=== PATIENT | male | born 1960 | race Caucasian/White ===

== ENCOUNTER 2020-12-12 15:40 | Inpatient (IN) | payer MEDICAID, OTHER ==
[~2020-12-12] VITALS: Ht 177.8 cm; Wt 89.4 kg
[2020-12-12] MEDS ORDERED: ALBUTEROL SULFATE 2.5 MG/0.5 ML INH NEB SOLN INH ONE (15:45)
[2020-12-12] MEDS ORDERED: methylPREDNISolone 125MG 2ML VIAL IV ONE (15:45)
[2020-12-12] MEDS ORDERED: IPRATROPIUM 0.5MG/ALBUTEROL 2.5MG INH SOL UD 3ML (DUONEB) NEB ONE (15:45)
[2020-12-12] MEDS ORDERED: PIPERACILLIN/TAZOBACTAM SOD 4.5 GM in D5W MINI-BAG PLUS 50 ML IV ONE (16:00)
[2020-12-12] MEDS ORDERED: NS 1,000 ML IV ONE (16:05)
--- NOTE | 2020-12-12 16:08 | REP ---
INDICATION: DYSPNEA/COUGH. COMPARISON: None. TECHNIQUE: Single portable AP view of the chest was performed. FINDINGS: There is diffuse left lung consolidation. No infiltrate is seen in the right lung. The heart size is not well evaluated. The right mediastinal and hilar contours are unremarkable. IMPRESSION: Diffuse left lung consolidation. <Electronically signed by Weston Kaur > 12/12/20 0896
[2020-12-12 16:11] LABS: HEMATOCRIT 48.4 % (42.0-52.0); HEMOGLOBIN 16.1 g/dl (13.5-17.5); MEAN CORPUSCULAR HEMOGLOBIN 30.2 pg (27.0-33.0); MEAN CORPUSCULAR HGB CONC 33.3 g/dl (32.0-36.5); MEAN CORPUSCULAR VOLUME 90.8 fl (80.0-96.0); PLATELET COUNT, AUTOMATED 359 10^3/uL (150-450); RED BLOOD COUNT 5.33 10^6/uL (4.30-6.10)
[2020-12-12 16:12] LABS: ABG BASE EXCESS -7.5 (-2.0-2.0); ABG HCO3 23.7 MEQ/L (22.0-26.0); ABG O2 SATURATION 94.9 % (95.0-99.0); ABG PARTIAL PRESSURE O2 91.1 mmHg (75.0-100.0); ABG STANDARD HCO3 18.5 MEQ/L (22.0-26.0); ABG TOTAL CO2 25.9 MEQ/L (23.0-31.0)
[2020-12-12 16:13] LABS: ABG PARTIAL PRESSURE CO2 73.1 mmHg (35.0-45.0); ABG pH (ARTERIAL) 7.128 UNITS (7.350-7.450)
[2020-12-12 16:13] LABS: WHITE BLOOD COUNT 35.3 10^3/uL (4.0-10.0)
[2020-12-12] MEDS ORDERED: NS IV ONE (16:30)
[2020-12-12 16:38] LABS: ACETAMINOPHEN LEVEL < 2.0 UG/ML (10.0-30.0); ALBUMIN 2.3 GM/DL (3.2-5.2); ALT/SGPT 44 U/L (12-78); BILIRUBIN,DIRECT 0.6 MG/DL (0.0-0.2); BILIRUBIN,TOTAL 0.9 MG/DL (0.2-1.0); BLOOD UREA NITROGEN 80 MG/DL (7-18); CALCIUM LEVEL 8.2 MG/DL (8.8-10.2); CARBON DIOXIDE LEVEL 25 MEQ/L (21-32); CHLORIDE LEVEL 103 MEQ/L (98-107); CK-MB VALUE MASS 2.8 NG/ML (<3.6); CPK CREATINE PHOSPHOKINASE 83 U/L (39-308); CREATININE FOR GFR 2.21 MG/DL (0.70-1.30); ETHYL ALCOHOL (ETHANOL) < 0.003 % (0.000-0.010); GLOMERULAR FILTRATION RATE 32.5 (>49); GLUCOSE, FASTING 137 MG/DL (70-100); MB/CK RELATIVE INDEX 3.37 (< OR =4); NT-PRO BNP 2098 PG/ML (<125); POTASSIUM SERUM 4.2 MEQ/L (3.5-5.1); SALICYLATE LEVEL 2.7 MG/DL (5.0-30.0); SODIUM LEVEL 140 MEQ/L (136-145); THYROID STIMULATING HORMONE 0.501 uIU/ML (0.358-3.740); THYROXINE (T4) 8.5 UG/DL (4.5-12.0); TOTAL PROTEIN 6.7 GM/DL (6.4-8.2); TROPONIN I < 0.02 NG/ML (< 0.10)
[2020-12-12 17:23] LABS: AMPHETAMINES LEVEL URINE NEGATIVE (NEGATIVE); BARBITURATES URINE NEGATIVE (NEGATIVE); BENZODIAZEPINES URINE NEGATIVE (NEGATIVE); CANNABINOIDS URINE NEGATIVE (NEGATIVE); COCAINE METABOLITE URINE NEGATIVE (NEGATIVE); METHADONE URINE NEGATIVE (NEGATIVE); OPIATES URINE NEGATIVE (NEGATIVE); PHENCYCLIDINE URINE NEGATIVE (NEGATIVE)
[2020-12-12 17:25] LABS: AMYLASE 15 U/L (25-115)
[2020-12-12 17:27] LABS: ANISOCYTOSIS 1+; LYMPHOCYTES 7 % (16-44); METAMYELOCYTES 4 % (0-0); MONOCYTES 3 % (0-5); MYELOCYTES 1 % (0-0); NEUTROPHILS 62 % (28-66); OVALOCYTES 1+; PLASMA CELL 1 % (0-0); PLATELET ESTIMATE NORMAL (NORMAL); POIKILOCYTOSIS 1+
[2020-12-12 17:28] LABS: PLATELET CLUMPS SMALL AMT; POLYCHROMASIA 1+
[2020-12-12] MEDS ORDERED: HOME MED LIST COMPLETE! XX SCH (17:30)
[2020-12-12] MEDS ORDERED: VANCOMYCIN HCL 1,000 MG, VIAL MATE ADAPTER 1 EACH in NS 250 ML IV ONE ×2 (18:00→19:00)
--- NOTE | 2020-12-12 18:31 | HPEPDOC ---
[facility] Medical History & Physical Date of Admission Dec 12, 2020 Date of Service: Dec 12, 2020 History and Physical CHIEF COMPLAINT: " Congestion" HISTORY OF PRESENT ILLNESS: 60-year-old male with past medical history of schizophrenia (obtained from the chart) presented to the emergency department after he was dropped off by his cousin due to respiratory distress. Patient is a poor historian and was unable to provide complete details of his current clinical status. He did report approximately a week ago he began to have chills, pain in his joints, myalgia, rhinorrhea, and congestion. He did not seek any medical attention at that time and thought it would pass. In the emergency department patient was in respiratory distress. ABG showed respiratory acidosis. Significant leukocytosis on blood work. He was placed on BiPAP and received appropriate fluid resuscitation (30 cc/kg) at which time medicine team was consulted for ICU admission. PAST MEDICAL HISTORY: 1. Schizophrenia PAST SURGICAL HISTORY: 1. Right knee surgery SOCIAL HISTORY: Marital status: Single Resides in: Lives with his mother at home Tobacco use: Unable to quantify on the cigarettes he smokes at this time ETOH: Denied Illicit drug use: Denies FAMILY HISTORY: Denies family history ALLERGIES: Please see below. REVIEW OF SYSTEMS: 10 point review of system was negative except for what is noted in the HPI HOME MEDICATIONS: Please see below. PHYSICAL EXAMINATION: General: Lying in bed, mild distress Head/Neck/Throat: Trachea midline, dry mucous membrane Eyes: Sclera anicteric, no erythema or discharge appreciated bilateral Thorax: On BiPAP, diminished breath sounds over the right lung field Cardiovascular: Normal rate, regular rhythm, normal S1, S2; no S3, S4, rubs/gallops/murmurs Abdomen: Bowel sounds present, soft, diffuse tenderness with palpation Genitourinary: No CVA tenderness, no Archuleta in place Musculoskeletal: Moving all extremities, pedal edema Skin: Warm, dry Neurologic: Alert, awake, oriented to self, place, and date he is able to follow commands. However, he is poor historian. LABORATORY DATA: See below. IMAGING: Chest x-ray shows left lung consolidation. MICROBIOLOGY: Please see below. A/P #Acute respiratory failure with hypoxia and hypercapnia -Secondary to viral pneumonia. Continue with BiPAP support. Case was discussed with oxidation engineer no need for immediate bronc in regards to the chest x-ray findings. We will appreciate assistance for BiPAP management. -Pulmonary toileting with nebulizer treatments and normal saline nebulizers. #Sepsis -Round pneumonia possibly superimposed bacterial pneumonia. Received 30 cc KG bolus. Will resume broad-spectrum antibiotics until cultures are back as well as procalcitonin. Repeat lactic acid pending #Abdominal pain -This was appreciated on physical examination although the patient did not complain of it. Will obtain CT scan of the abdomen to rule out underlying pathology #Schizophrenia -Patient reports he is not on any medications at this time. #DVT prophylax -Heparin subcu Critical time spent over 75 minutes on patient. Attempt to call family but no answer. Vital Signs Vital Signs Date Time Temp Pulse Resp B/P (MAP) Pulse Ox O2 Delivery O2 Flow Rate FiO2 12/12/20 17:16 109 97 12/12/20 17:06 97.8 12/12/20 16:46 107/59 (75) 12/12/20 16:40 22 12/12/20 16:10 100 Laboratory Data Labs 24H Laboratory Tests 2 12/12/20 15:49: Neutrophils (%) (Auto) , Nucleated Red Blood Cells % (auto) 0.1H, Neutrophils 62, Band Neutrophils 22H, Lymphocytes (Manual) 7L, Monocytes (Manual) 3, Metamye locytes 4H, Myelocytes 1H, Plasma Cells 1H, Polychromasia 1+, Poikilocytosis 1+, Anisocytosis 1+, Ovalocytes 1+, Platelet Estimate NORMAL, Clumped Platelets SMALL AMT, Urine Color BRICE, Urine Appearance CLOUDYH, Urine pH 5.0, Urine Specific [place] 1.023, Urine Protein 1+H, Urine Glucose (UA) NEGATIVE, Urine Ketones NEGATIVE, Urine Blood NEGATIVE, Urine Nitrite NEGATIVE, Urine Bilirubin NEGATIVE, Urine Urobilinogen 4.0H, Urine Leukocyte Esterase NEGATIVE, Urine WBC (Auto) 5H, Urine RBC (Auto) 3, Urine Hyaline Casts (Auto) 1, Urine Bacteria (Auto) NEGATIVE, Urine Squamous Epithelial Cells 1, Urine Amorphous Sediment SMALLH, Urine Granular Casts (Auto) 17, Urine Mucus (Auto) SMALL, Urine Sperm (Auto) , Anion Gap 12, Glomerular Filtration Rate 32.5L, Lactic Acid Level 3.2*H, Calcium Level 8.2L, Total Bilirubin 0.9, Direct Bilirubin 0.6H, Aspartate Amino Transf (AST/SGOT) 34, Alanine Aminotransferase (ALT/SGPT) 44, Alkaline Phosphatase 190H, Ammonia < 10, Total Creatine Kinase 83, Creatine Kinase MB 2.8, Creatine Kinase MB Relative Index 3.37, Troponin I < 0.02, C-Reactive Protein, Quantitative 36.70H, DP-Lej-Y-Type Natriuretic Peptide 2098H, Total Protein 6.7, Albumin 2.3L, Albumin/Globulin Ratio 0.5, Amylase Level 15L, Thyroid Stimulating Hormone (TSH) 0.501, Thyroxine (T4) 8.5, Salicylates Level 2.7L, Urine Opiates Screen NEGATIVE, Urine Methadone Screen NEGATIVE, Acetaminophen Level < 2.0L, Urine Barbiturates Screen NEGATIVE, Urine Phencyclidine Screen NEGATIVE, Urine Amphetamines Screen NEGATIVE, Urine Benzodiazepines Screen NEGATIVE, Urine Cocaine Metabolite Screen NEGATIVE, Urine Cannabinoids Screen NEGATIVE, Ethyl Alcohol Level < 0.003 12/12/20 16:02: Blood Gas Bicarbonate Standard 18.5L, Arterial Blood pH 7.128*L, Arterial Blood Partial Pressure CO2 73.1*H, Arterial Blood Partial Pressure O2 91.1, Arterial Blood Total CO2 25.9, Arterial Blood HCO3 23.7, Arterial Blood Base Excess - 7.5L, Arterial Blood Oxygen Saturation 94.9L 12/12/20 16:06: Bedside Glucose (Misc Panel) 150H 12/12/20 16:36: POC pH (Misc Panel) 7.283L, POC Base Excess (Misc Panel) -1.0, POC Saturated Percent O2 (Misc) 99H, POC pO2 (Misc Panel) 155.0H, POC pCO2 (Misc Panel) 53.9H, POC HCO3 (Misc Panel) 25.5, POC Total CO2 (Misc Panel) 27.0 CBC/BMP Laboratory Tests 12/12/20 15:49 Microbiology Microbiology 12/12/20 Blood Culture, Received Pending 12/12/20 Urine Culture, Received Pending 12/12/20 Respiratory Virus Panel (PCR) (TAE) - Final, Complete Human Rhinovirus/Enterovirus 12/12/20 Blood Culture, Received Pending Home Medications No Active Prescriptions or Reported Meds Allergies Coded Allergies: strawberry (Verified Allergy, Unknown, 12/12/20) tuberculin, purified protein deriva (Verified Allergy, Unknown, 12/12/20) A-FIB/CHADSVASC A-FIB History Current/History of A-Fib/PAF?: No MARÍA STEARNS M.D. Dec 12, 2020 17:33
[2020-12-12 18:42] LABS: INR 1.29; PROTHROMBIN TIME 16.5 SECONDS (12.7-14.5)
[2020-12-12 18:43] LABS: PARTIAL THROMBOPLASTIN TIME 28.3 SECONDS (25.9-37.0)
--- NOTE | 2020-12-12 19:19 | ECGEPIP ---
[facility] - ED Test Date: 2020-12-12 Pat Name: RL SCOTT Department: Room: - Gender: Male Programming Specialist: ASHLEIGH : [id number] Requested By: Lorie Sumner Order Number: [id number] Reading MD: Lorie Sumner Measurements Intervals [place] Rate: 132 P: 72 MO: 146 QRS: 82 QRSD: 100 T: 88 QT: 284 QTc: 420 Interpretive Statements Sinus tachycardia Incomplete right bundle branch block Cannot rule out Anterior infarct , age undetermined Nonspecific ST T wave changes Baseline wandering may affect reading Baseline artifact may affect reading No prior ECG for comparison Electronically Signed on 12-12-2020 19:19:00 EDT by Lorie Sumner
[2020-12-12 20:00] VITALS: BP 135/60
[2020-12-12] MEDS: IPRATROPIUM 0.5MG/ALBUTEROL 2.5MG INH SOL UD 3ML (DUONEB) NEB SCH (20:00)
[2020-12-12] MEDS: SODIUM CHLORIDE 0.9% 3ML NEB SOLUTION FOR INHALATION INH SCH (20:00)
[2020-12-12] MEDS: NS 1,000 ML IV SCH (20:07)
[2020-12-12] MEDS: CHLORHEXIDINE GLUCONATE 0.12 % 15ML UDC (PERIDEX ORAL RINSE) MT SCH (20:08)
[2020-12-12] MEDS: PIPERACILLIN/TAZOBACTAM SOD 3.375 GM in D5W MINI-BAG PLUS 50 ML IV SCH (21:08)
[2020-12-12] MEDS: HEPARIN SOD (PORCINE) 5000UNITS/ML 1ML VIAL/SYRINGE SQ SCH (21:08)
[2020-12-12 22:00] VITALS: BP 121/58
[2020-12-13] VITALS (17 sets, daily range): BP systolic 106–157; BP diastolic 57–86
[2020-12-13] MEDS: SODIUM CHLORIDE 0.9% 3ML NEB SOLUTION FOR INHALATION INH SCH ×4 (01:29→20:00)
[2020-12-13] MEDS: IPRATROPIUM 0.5MG/ALBUTEROL 2.5MG INH SOL UD 3ML (DUONEB) NEB SCH ×5 (01:29→20:00)
[2020-12-13] MEDS: NS 1,000 ML IV SCH (03:10)
[2020-12-13] MEDS: PIPERACILLIN/TAZOBACTAM SOD 3.375 GM in D5W MINI-BAG PLUS 50 ML IV SCH ×4 (03:11→21:08)
[2020-12-13] MEDS: HEPARIN SOD (PORCINE) 5000UNITS/ML 1ML VIAL/SYRINGE SQ SCH ×3 (05:16→21:09)
[2020-12-13 05:57] LABS: ABG HCO3 21.5 MEQ/L (22.0-26.0); ABG O2 SATURATION 96.9 % (95.0-99.0); ABG PARTIAL PRESSURE CO2 36.6 mmHg (35.0-45.0); ABG PARTIAL PRESSURE O2 88.7 mmHg (75.0-100.0); ABG TOTAL CO2 22.6 MEQ/L (23.0-31.0); ABG pH (ARTERIAL) 7.386 UNITS (7.350-7.450)
--- NOTE | 2020-12-13 06:20 | IPNPDOC ---
Subjective Date Seen The patient was seen on 12/13/20. Subjective Chief Complaint/HPI Patient was seen and examined at bedside this morning. He was on BiPAP and reported feeling significantly better from the time he arrived to the hospital. He denied chest pain, nausea, vomiting, problems with urination or bowel movements. He continues to endorse having abdominal pain which he attributes to him having a difficult time breathing prior to arrival to the hospital. Overnight, patient was able to come off BiPAP but had increased work of breathing therefore was placed back on it. Other systems 10 point review of system is negative except for what is noted in the HPI. Objective Physical Examination Other physical findings General: Lying in bed, mild distress Head/Neck/Throat: Trachea midline, dry mucous membrane Eyes: Sclera anicteric, no erythema or discharge appreciated bilateral Thorax: On BiPAP, coarse breath sounds bilaterally Cardiovascular: Normal rate, regular rhythm, normal S1, S2; no S3, S4, rubs/gallops/murmurs Abdomen: Bowel sounds present, soft, diffuse tenderness with palpation Genitourinary: No CVA tenderness, no Archuleta in place Musculoskeletal: Moving all extremities, pedal edema Skin: Warm, dry Neurologic: Alert, awake, oriented to self, place, and date he is able to follow commands. Assessment /Plan Plan/VTE VTE Prophylaxis Ordered?: Yes Plan #Acute respiratory failure with hypoxia and hypercapnia -Secondary to viral pneumonia and possibly superimposed bacterial pneumonia (elevated procalcitonin). Continue with BiPAP support. Case was discussed with dog races manager, appreciate assistance for BiPAP management. -Pulmonary toileting with nebulizer treatments and normal saline nebulizers. Solu-Medrol. We will add chest PT. #Sepsis -Viral pneumonia possibly superimposed bacterial pneumonia. Continue with broad-spectrum antibiotics until cultures are back. Will check MRSA screen, if negative can discontinue vancomycin. Azithromycin added for atypical coverage. -Mycoplasma, strep pneumonia and Legionella antigen screen pending. Sputum culture and sensitivity pending. #Abdominal pain -This was appreciated on physical examination although the patient did not complain of it. CT scan of the abdomen is pending #Schizophrenia -Patient reports he is not on any medications at this time. #DVT prophylax -Heparin subcu Critical time spent over 75 minutes on patient. VS, I&O, 24H, Fishbone Vital Signs/I&O Vital Signs Date Time Temp Pulse Resp B/P (MAP) Pulse Ox O2 Delivery O2 Flow Rate FiO2 12/13/20 06:00 75 24 126/61 (82) 93 Nasal Cannula 4.0 12/13/20 04:00 40 12/13/20 04:00 98.1 I&O- Last 24 Hours up to 6 AM 12/13/20 06:00 Intake Total 4480 ml Output Total 740 ml Balance 3740 ml Laboratory Data 24H LABS Laboratory Tests 2 12/12/20 15:49: Neutrophils (%) (Auto) , Nucleated Red Blood Cells % (auto) 0.1H, Neutrophils 62, Band Neutrophils 22H, Lymphocytes (Manual) 7L, Monocytes (Manual) 3, Metamyelocytes 4H, Myelocytes 1H, Plasma Cells 1H, Polychromasia 1+, Poiki locytosis 1+, Anisocytosis 1+, Ovalocytes 1+, Platelet Estimate NORMAL, Clumped Platelets SMALL AMT, Urine Color BRICE, Urine Appearance CLOUDYH, Urine pH 5.0, Urine Specific [place] 1.023, Urine Protein 1+H, Urine Glucose (UA) NEGATIVE, Urine Ketones NEGATIVE, Urine Blood NEGATIVE, Urine Nitrite NEGATIVE, Urine Bilirubin NEGATIVE, Urine Urobilinogen 4.0H, Urine Leukocyte Esterase NEGATIVE, Urine WBC (Auto) 5H, Urine RBC (Auto) 3, Urine Hyaline Casts (Auto) 1, Urine Bacteria (Auto) NEGATIVE, Urine Squamous Epithelial Cells 1, Urine Amorphous Sediment SMALLH, Urine Granular Casts (Auto) 17, Urine Mucus (Auto) SMALL, Urine Sperm (Auto) , Anion Gap 12, Glomerular Filtration Rate 32.5L, Lactic Acid Level 3.2*H, Calcium Level 8.2L, Total Bilirubin 0.9, Direct Bilirubin 0.6H, Aspartate Amino Transf (AST/SGOT) 34, Alanine Aminotransferase (ALT/SGPT) 44, Alkaline Phosphatase 190H, Ammonia < 10, Total Creatine Kinase 83, Creatine Kinase MB 2.8, Creatine Kinase MB Relative Index 3.37, Troponin I < 0.02, C-Reactive Protein, Quantitative 36.70H, AE-Piw-T-Type Natriuretic Peptide 2098H, Total Pro tein 6.7, Albumin 2.3L, Albumin/Globulin Ratio 0.5, Amylase Level 15L, Procalcitonin 11.28, Thyroid Stimulating Hormone (TSH) 0.501, Thyroxine (T4) 8.5, Salicylates Level 2.7L, Urine Opiates Screen NEGATIVE, Urine Methadone Screen NEGATIVE, Acetaminophen Level < 2.0L, Urine Barbiturates Screen NEGATIVE, Urine Phencyclidine Screen NEGATIVE, Urine Amphetamines Screen NEGATIVE, Urine Benzodiazepines Screen NEGATIVE, Urine Cocaine Metabolite Screen NEGATIVE, Urine Cannabinoids Screen NEGATIVE, Ethyl Alcohol Level < 0.003 12/12/20 16:02: Blood Gas Bicarbonate Standard 18.5L, Arterial Blood pH 7.128*L, Arterial Blood Partial Pressure CO2 73.1*H, Arterial Blood Partial Pressure O2 91.1, Arterial Blood Total CO2 25.9, Arterial Blood HCO3 23.7, Arterial Blood Base Excess - 7.5L, Arterial Blood Oxygen Saturation 94.9L 12/12/20 16:06: Bedside Glucose (Misc Panel) 150H 12/12/20 16:36: POC pH (Misc Panel) 7.283L, POC Base Excess (Misc Panel) -1.0, POC Saturated Percent O2 (Misc) 99H, POC pO2 (Misc Panel) 155.0H, POC pCO2 (Misc Panel) 53.9H, POC HCO3 (Misc Panel) 25.5, POC Total CO2 (Misc Panel) 27.0 12/12/20 18:04: Prothrombin Time 16.5H, Prothromb Time International Ratio 1.29, Activated Partial Thromboplast Time 28.3 12/12/20 20:08: Lactic Acid Followup at 4 Hours 2.2*H 12/12/20 20:15: Methicillin-Resist S.aureus DNA PCR NOT DETECTED 12/13/20 05:51: Blood Gas Bicarbonate Standard 22.0, Arterial Blood pH 7.386, Arterial Blood Partial Pressure CO2 36.6, Arterial Blood Partial Pressure O2 88.7, Arterial Blood Total CO2 22.6L, Arterial Blood HCO3 21.5L, Arterial Blood Base Excess - 3.0L, Arterial Blood Oxygen Saturation 96.9 CBC/BMP Laboratory Tests 12/12/20 15:49 Microbiology Microbiology 12/12/20 Blood Culture, Received Pending 12/12/20 Urine Culture, Received Pending 12/12/20 Respiratory Virus Panel (PCR) (TAE) - Final, Complete Human Rhinovirus/Enterovirus 12/12/20 Blood Culture, Received Pending MARÍA STEARNS M.D. Dec 13, 2020 06:19
--- NOTE | 2020-12-13 08:11 | REP ---
INDICATION: f/u on abnormal cxr. COMPARISON: Portable chest dated 12/12/2020. TECHNIQUE: Portable AP chest with the patient sitting. FINDINGS: There is consolidation throughout the entire left lung, as previously. Right lung remains clear. Left cardiac margin is obscured and cardiac size cannot be determined. IMPRESSION: Complete consolidation of the entire left lung. No interval change. <Electronically signed by Weston Church > 12/13/20 0807
[2020-12-13] MEDS: CHLORHEXIDINE GLUCONATE 0.12 % 15ML UDC (PERIDEX ORAL RINSE) MT SCH ×2 (09:08→21:08)
[2020-12-13 09:18] LABS: BASO % 0.1 % (0.0-1.0); EOS % 0.1 % (0.0-3.0); HEMATOCRIT 38.9 % (42.0-52.0); LYMPH # 1.9 10^3/uL (1.5-5.0); MEAN CORPUSCULAR VOLUME 88.6 fl (80.0-96.0); MONO # 0.9 10^3/uL (0.0-0.8); NEUTROPHILS # 26.7 10^3/uL (1.5-8.5); PLATELET COUNT, AUTOMATED 293 10^3/uL (150-450); RED BLOOD COUNT 4.39 10^6/uL (4.30-6.10)
[2020-12-13 09:22] LABS: HEMOGLOBIN 13.6 g/dl (13.5-17.5)
[2020-12-13 09:26] LABS: ALBUMIN 1.7 GM/DL (3.2-5.2); BILIRUBIN,TOTAL 0.8 MG/DL (0.2-1.0); CALCIUM LEVEL 7.8 MG/DL (8.8-10.2); CREATININE FOR GFR 1.61 MG/DL (0.70-1.30); GLOMERULAR FILTRATION RATE 46.8 (>49); MAGNESIUM LEVEL 2.7 MG/DL (1.8-2.4); PHOSPHORUS LEVEL 3.8 MG/DL (2.5-4.9); POTASSIUM SERUM 3.7 MEQ/L (3.5-5.1); TOTAL PROTEIN 6.2 GM/DL (6.4-8.2)
--- NOTE | 2020-12-13 10:30 | REP ---
INDICATION: Pneumonia COMPARISON: None. TECHNIQUE: Standard helical technique without intravenous contrast FINDINGS: There is mediastinal and left hilar adenopathy somewhat difficult to evaluate without intravenous contrast. There is a small to moderate left pleural effusion. The imaged upper abdomen is within normal limits. The imaged osseous structures show respiratory motion artifact obscuring the sternum and multiple ribs given the impression of cortical overlap. Evaluation of the lung adams shows dense consolidation of the left upper, middle, and lower lobes with air bronchograms. Patchy airspace opacities are seen in the aerated portions of those lobes. Respiratory motion artifact obscures the detail. Slightly increased interstitial markings and possible early airspace opacities in the lingula obscured by motion artifact. IMPRESSION: 1. Dense lung field opacification as described above. Pneumonia is suspected. Malignancy cannot be ruled out. 2. There is adenopathy as described above. 3. Left pleural effusion. 4. Other findings and exam limitations as described above. <Electronically signed by Farooq Boyle > 12/13/20 1020
[2020-12-13] MEDS: AZITHROMYCIN INJ 500 MG, VIAL MATE ADAPTER 1 EACH in NS 250 ML IV SCH (11:57)
[2020-12-13] MEDS: methylPREDNISolone 125MG 2ML VIAL IV SCH ×3 (11:58→23:38)
--- NOTE | 2020-12-13 15:49 | REP ---
INDICATION: diffuse abdominal pain. COMPARISON: None. TECHNIQUE: Noncontrast enhanced standard helical technique FINDINGS: Evaluation of the lung bases shows a left pleural effusion and left basilar opacities with air bronchograms. Limited evaluation of the solid intra-organs and gallbladder shows no gross abnormalities. Limited evaluation of the pancreas, adrenal glands, and kidneys shows no gross abnormalities. Limited evaluation of the bowel loops and the mesenteries shows no gross abnormalities. There is no evidence of free fluid or free air. Limited evaluation of the abdominal aorta and para aortic regions shows no abnormalities. There is no evidence of a mass or adenopathy. A Archuleta balloon catheter decompresses the urinary bladder. Bone window technique throughout the examination shows the osseous structures to be within normal limits for the patient's age. IMPRESSION: 1. Lung base findings as described above. 2. Limited examination showing no evidence of acute intra-abdominal or intrapelvic disease with findings as described above. <Electronically signed by Farooq Boyle > 12/13/20 [id number]
[2020-12-13] MEDS ORDERED: ONDANSETRON 4MG/2ML VIAL IV ONE (18:05)
[2020-12-13] MEDS ORDERED: MORPHINE 2 MG/ML 1ML VIAL (J2270) IV ONE (18:20)
[2020-12-13] MEDS ORDERED: VANCOMYCIN HCL 1,000 MG, VIAL MATE ADAPTER 1 EACH in NS 250 ML IV SCH (20:00)
[2020-12-14] VITALS (18 sets, daily range): BP systolic 103–159; BP diastolic 59–92
[2020-12-14] MEDS: SODIUM CHLORIDE 0.9% 3ML NEB SOLUTION FOR INHALATION INH SCH ×3 (01:12→14:00)
[2020-12-14] MEDS ORDERED: guaiFENesin/CODEINE SYRUP 5 ML UDC PO ONE (01:30)
[2020-12-14] MEDS ORDERED: METOPROLOL 5 MG/5 ML VIAL As Ordered ONE (02:56)
--- NOTE | 2020-12-14 03:00 | IPNPDOC ---
Date Seen The patient was seen on 12/14/20. Progress Note SUBJECTIVE: called by RN at approximately 0245, for concern of afib on tele. Confirmed by 12 lead ekg, AFIB with RVR, new onset, no prior hx. Patient is alert and oriented, in good spirits. On bipap. No chest pain, no palpitations. C/o cough, dyspnea. Saturating at 92%. OBJECTIVE PHYSICAL EXAMINATION: VITAL SIGNS: Please see below. GENERAL: comfortable HEENT: PERRLA, EOMI CARDIOVASCULAR: irregularly irregular, normal S1, S2 RESPIRATORY: rales and rhonchi in bilateral lung adams ABDOMINAL: soft, non tender EXTREMITIES: no edema, no cyanosis NEUROLOGICAL: no focal neuro deficits LABORATORY DATA, IMAGING STUDIES, MICROBIOLOGY: Please see below. ASSESSMENT AND PLAN: New onset afib with rvr: suspect 2/2 acute hypoxic respiratory failure and sepsis in setting of viral illness, bacterial infection. Order metoprolol 5 mg IV q5 min for rate control. Will start therapeutic lovenox. 2D echo ordered. Labs ordered. I suspect once underlying illness treated, afib may convert. Would obtain cardiology advice as to middle or intermediate school principal AC in AM. VS, I&O, 24H, [facility] Vital Signs/I&O Vital Signs Date Time Temp Pulse Resp B/P (MAP) Pulse Ox O2 Delivery O2 Flow Rate FiO2 12/14/20 02:40 155 24 152/90 (110) 93 NIPPV (BIPAP/CPAP) 30 12/14/20 00:00 98.0 12/13/20 09:00 4.0 I&O- Last 24 Hours up to 6 AM 12/14/20 06:00 Intake Total 1320 ml Output Total 1175 ml Balance 145 ml Laboratory Data 24H LABS Laboratory Tests 2 12/13/20 05:51: Blood Gas Bicarbonate Standard 22.0, Arterial Blood pH 7.386, Arterial Blood Partial Pressure CO2 36.6, Arterial Blood Partial Pressure O2 88.7, Arterial Blood Total CO2 22.6L, Arterial Blood HCO3 21.5L, Arterial Blood Base Excess - 3.0L, Arterial Blood Oxygen Saturation 96.9 12/13/20 08:48: Immature Granulocyte % (Auto) 4.8H, Neutrophils (%) (Auto) 86.0H, Lymphocytes (%) (Auto) 6.0L, Monocytes (%) (Auto) 3.0, Eosinophils (%) (Auto) 0.1, Basophils (%) (Auto) 0.1, Neutrophils # (Auto) 26.7H, Lymphocytes # (Auto) 1.9, Monocytes # (Auto) 0.9H, Eosinophils # (Auto) 0.0, Basophils # (Auto) 0.0, Nucleated Red Blood Cells % (auto) 0.1H, Anion Gap 7L, Glomerular Filtration Rate 46.8L, Lactic Acid Level 1.7, Calcium Level 7.8L, Phosphorus Level 3.8, Magnesium Level 2.7H, Total Bilirubin 0.8, Aspartate Amino Transf (AST/SGOT) 38H, Alanine Aminotransferase (ALT/SGPT) 34, Alkaline Phosphatase 125H, Total Protein 6.2L, Albumin 1.7#L, Albumin/Globulin Ratio 0.4 12/13/20 11:30: 12/13/20 11:38: 12/13/20 19:02: Vancomycin Level Trough 8.6L CBC/BMP Laboratory Tests 12/13/20 08:48 Microbiology Microbiology 12/12/20 Blood Culture - Preliminary, Resulted No growth after 24 hours . All specim... 12/12/20 Urine Culture, Received Pending 12/12/20 Respiratory Virus Panel (PCR) (TAE) - Final, Complete Human Rhinovirus/Enterovirus 12/12/20 Blood Culture - Preliminary, Resulted No growth after 24 hours . All specim... NICOLAS HUDSON MD Dec 14, 2020 03:00
[2020-12-14] MEDS: METOPROLOL 5 MG/5 ML VIAL IV SCH ×3 (03:01→03:15)
[2020-12-14] MEDS: PIPERACILLIN/TAZOBACTAM SOD 3.375 GM in D5W MINI-BAG PLUS 50 ML IV SCH ×4 (03:14→21:19)
[2020-12-14 03:36] LABS: HEMATOCRIT 36.4 % (42.0-52.0); HEMOGLOBIN 12.9 g/dl (13.5-17.5); MEAN CORPUSCULAR HEMOGLOBIN 30.9 pg (27.0-33.0); MEAN CORPUSCULAR HGB CONC 35.4 g/dl (32.0-36.5); MEAN CORPUSCULAR VOLUME 87.3 fl (80.0-96.0); PLATELET COUNT, AUTOMATED 244 10^3/uL (150-450); RED BLOOD COUNT 4.17 10^6/uL (4.30-6.10); WHITE BLOOD COUNT 26.8 10^3/uL (4.0-10.0)
[2020-12-14] MEDS: ENOXAPARIN 100MG/1ML SYRINGE (J1650 PER 10MG) SC SCH ×2 (03:39→16:11)
[2020-12-14 03:56] LABS: ATYPICAL LYMPH 1 % (0-5); LYMPHOCYTES 6 % (16-44); MONOCYTES 3 % (0-5); NEUTROPHILS 90 % (28-66)
[2020-12-14 03:57] LABS: ANISOCYTOSIS 1+; PLATELET ESTIMATE NORMAL (NORMAL); POIKILOCYTOSIS 1+; POLYCHROMASIA 1+
[2020-12-14 04:01] LABS: ALBUMIN 1.7 GM/DL (3.2-5.2); ALT/SGPT 39 U/L (12-78); BILIRUBIN,TOTAL 0.6 MG/DL (0.2-1.0); BLOOD UREA NITROGEN 78 MG/DL (7-18); CALCIUM LEVEL 7.5 MG/DL (8.8-10.2); CARBON DIOXIDE LEVEL 24 MEQ/L (21-32); CHLORIDE LEVEL 109 MEQ/L (98-107); CREATININE FOR GFR 1.36 MG/DL (0.70-1.30); GLOMERULAR FILTRATION RATE 56.9 (>49); GLUCOSE, FASTING 123 MG/DL (70-100); MAGNESIUM LEVEL 3.1 MG/DL (1.8-2.4); NT-PRO BNP 1209 PG/ML (<125); PHOSPHORUS LEVEL 4.2 MG/DL (2.5-4.9); POTASSIUM SERUM 4.5 MEQ/L (3.5-5.1); SODIUM LEVEL 141 MEQ/L (136-145); TROPONIN I < 0.02 NG/ML (< 0.10)
[2020-12-14] MEDS ORDERED: DIGOXIN INJ 0.5 MG/2 ML AMP (J1160) IV STA (04:11)
[2020-12-14] MEDS: methylPREDNISolone 125MG 2ML VIAL IV SCH ×3 (05:18→20:17)
--- NOTE | 2020-12-14 06:15 | ECGEPIP ---
[facility] Test Date: 2020-12-14 Pat Name: RL SCOTT Department: Room: [place] [address] Gender: Male Assistant County Engineer: NUVIA : 1960 Requested By: NICOLAS HUDSON Order Number: [id number] Reading MD: Xuan Burciaga Measurements Intervals [place] Rate: 140 P: LA: QRS: 45 QRSD: 108 T: 77 QT: 322 QTc: 491 Interpretive Statements Critical Test Result: High HR Atrial fibrillation with rapid ventricular response Incomplete right bundle branch block Absent R WAVE V1 V2 SINCE 12/12/20 PRIOR WITH PRWP A FIB NEW PRIOR WITH SINUS TACHY NSSTTABN LOW VOLTAGE LIMB LEADS NEW Electronically Signed on 12-14-2020 6:14:50 EDT by Xuan Burciaga
[2020-12-14] MEDS ORDERED: DIGOXIN INJ 0.5 MG/2 ML AMP (J1160) IV ONE (06:45)
[2020-12-14] MEDS: IPRATROPIUM 0.5MG/ALBUTEROL 2.5MG INH SOL UD 3ML (DUONEB) NEB SCH ×6 (07:00→19:32)
--- NOTE | 2020-12-14 08:16 | REP ---
INDICATION: SOB, follow-up from previous. COMPARISON: Portable chest dated 12/13/2020. TECHNIQUE: Portable AP chest with the patient sitting. FINDINGS: There is now aeration in the left mid lung.. The remainder of the left lung is consolidated as previously. There is no other interval change. IMPRESSION: There has been interval aeration of the left mid lung. <Electronically signed by Weston Church > 12/14/20 0812
--- NOTE | 2020-12-14 08:23 | CCN ---
CRITICAL CARE NOTE DATE: 12/13/2020 SUBJECTIVE: Mr. Philippe Munson is a 60-year-old male hospitalized for respiratory distress. This is hospital day 2. Patient has a history of schizophrenia with no known underlying respiratory disorder. Patient reports that he is doing well today. He reports a good appetite. However, he has not had anything to eat today. Nursing staff reports that they tried to de-escalate his oxygen therapy down to nasal cannula. However, his oxygen saturation decreased. Patient reports no acute distress at this time. He was on Bi-PAP while he answered these questions. Patient denies any chest pain, nausea, vomiting, diarrhea, or constipation at this time. Patient does report that he has a right upper quadrant pain that started approximately one week ago with the cough. Pulmonary was consulted on patient's case yesterday due to respiratory distress requiring Bi-PAP and chest x-ray showing diffuse left lung consolidation. Patient was also found to be human rhinovirus/enterovirus positive. Today is day 2 of antibiotics. OBJECTIVE: VITAL SIGNS: Temperature 98.1, pulse 75, respiratory rate 29 with Bi-PAP settings of respiratory rate of 12, IPAP 16, EPAP 8, FiO2 30%, 95% O2 saturation, blood pressure 126/61. GENERAL: Patient appears in no acute distress. Patient is resting comfortably upright in bed. There are two IV lines, one in each AC location in the upper extremities. HEENT: EOMI. No conjunctival erythema appreciated. No nasal discharge appreciated. Oral mucosa mildly dry. However, patient is on Bi-PAP. RESPIRATORY: Vesicular sounds distant. Rales appreciated diffusely. Left vesicular sounds significantly diminished as compared to right side. CARDIAC: Regular rate and rhythm. Soft systolic murmur appreciated, no rubs or gallops. No lower extremity edema appreciated. ABDOMEN: Right upper quadrant pain on palpation. Bowel sounds present in all quadrants. Soft, mildly distended abdomen. GENITOURINARY: Patient has urinary catheter placed. Urine is dark and volume is low at this time. DIAGNOSTIC STUDIES: LABORATORY STUDIES: CBC and CMP are still pending at this time. For 12/12/2020, white count 35.3, hemoglobin 16.1, hematocrit 48, platelet count 359. Comprehensive metabolic panel also from 12/12/2020: Sodium 140, potassium 4.2, chloride 103, bicarb 25, BUN 80, creatinine 2.21, glucose 137, lactic acid 3.2 and four hour follow up was 2.2, calcium 8.2, total bilirubin 0.9, alkaline phosphatase 190, AST 34, ALT 44, CRP 36.7, BNP 2098, albumin 2.3, amylase 15. Procalcitonin was 11.28. I's and O's: Intake: 3.95 liters, Output: 3.56 liters. Intake consisted of normal saline, Zosyn 3.375, and Vancomycin. ABG 12/13/2020: pH 7.38, partial pressure of carbon dioxide 36.6, partial pressure of oxygen 88.7, calculated bicarb 21.5. IMAGING: Chest x-ray from 12/12/2020 - Impression: Diffuse left lung consolidation. Chest x-ray imaging from 12/13/2020 No interval change. Complete consolidation of the entire left lung. ASSESSMENT/PLAN: This is as 60-year-old male in respiratory distress on hospital day 2 who is currently on Bi-PAP. Patient is in the ICU due to hypoxemia secondary to respiratory distress. Bi-PAP settings are being managed by the pulmonary team at this time. Hypoxemia secondary to respiratory distress, etiology likely bacterial superimposed on viral pneumonia. Patient has leukocytosis and elevated procalcitonin at this time. Patient is on day 2 of antibiotics, Zosyn and vancomycin. Patient tested positive for human rhinovirus/enterovirus. We will continue to manage Bi-PAP settings at this time. CT chest without contrast has been ordered (no contrast due to patient's poor renal function). Right upper quadrant pain: Patient had elevated alkaline phosphatase. Patient has no abdominal imaging at this time. Hospitalist note denotes that they are considering doing a CT abdomen at this time. Patient's medical management for this is being managed by the attending on hospitalist. Schizophrenia: Patient reports that he is on no home medications at this time for this. Hospitalist team will continue to manage this at this time. DVT prophylaxis: Heparin 5,000 units subcutaneous every eight hours. GME ATTESTATION: My faculty preceptor for this patient encounter was physically present during the encounter and was fully available. All aspects of the patient's interview, examination, medical decision making process, and medical care plan development were reviewed and approved by the faculty preceptor. The faculty preceptor is aware and concurs with the plan as stated in the body of this note and will attest to such by his co-signature. I was physically present for the entire interview and exam. I agree with the above assessment and plan. CY
[2020-12-14] MEDS: guaiFENesin ER 600 MG TAB PO SCH ×2 (09:21→20:17)
--- NOTE | 2020-12-14 10:40 | IPNPDOC ---
Subjective Date Seen The patient was seen on 12/14/20. Subjective Chief Complaint/HPI Patient is feeling better. He's less short of breath. He's still coughing but not able to bring up sputum. General: Denies: Chills, Fatigue Constitutional: Denies: Fever ENT: Denies: Sinus Congestion, Sore Throat Skin: Denies: Rash Pulmonary: Reports: Dyspnea, Cough Cardiovascular: Denies: Chest Pain, Palpitations, Orthopnea Gastrointestinal: Denies: Nausea, Vomiting, Abdominal Pain, Diarrhea Genitourinary: Denies: Frequency Neurological: Denies: Weakness, Numbness Objective Physical Examination General Exam: Positive: Alert, Cooperative, No Acute Distress Eye Exam: Positive: Sclera icteric ENT Exam: Positive: Atraumatic, Mucous membr. moist/pink Neck Exam: Negative: JVD Chest Exam: Positive: Rhonchi (rhonchi left lung field) Heart Exam: Positive: Rate Normal, Regular Rhythm Abdomen Exam: Positive: Normal bowel sounds, Soft Extremity Exam: Positive: Clubbing; Negative: Cyanosis, Edema Skin Exam: Negative: Rash Neuro Exam: Negative: Normal Speech, Strength at 5/5 X4 ext Psych Exam: Positive: Oriented x 3 Assessment /Plan Assessment This is a 60 yo gentleman with history of schizophrenia admitted to the hospital with multi-lobar PNA and hypoxic and hypercapnic respiratory failure. 1. Hypoxic and hypercapnic respiratory failure 2. Multi-lobar bacterial PNA with superimposed viral/rhinovirus PNA 3. KEHINDE Plan/VTE VTE Prophylaxis Ordered?: Yes Plan 1. Continue with current antibiotic regimes (zosyn and azithromycin). 2. Recommend to start tappering systemic corticosteroid. 3. Wean off BiPAP to Nasal cannula as he clinically appears to be doing well on NC. 4. Encourage right lateral decubitus position to improve V/Q mismatch. 5. OOB, DC citlaly. Disposition possible transfer out of ICU VS, I&O, 24H, Fishbone Vital Signs/I&O Vital Signs Date Time Temp Pulse Resp B/P (MAP) Pulse Ox O2 Delivery O2 Flow Rate FiO2 12/14/20 08:00 4.0 12/14/20 07:44 80 20 96 Nasal Cannula 12/14/20 07:20 119/64 (82) 30 12/14/20 05:00 98.8 I&O- Last 24 Hours up to 6 AM 12/14/20 06:00 Intake Total 1850 ml Output Total 1575 ml Balance 275 ml Laboratory Data 24H LABS Laboratory Tests 2 12/13/20 11:30: 12/13/20 11:38: 12/13/20 19:02: Vancomycin Level Trough 8.6L 12/14/20 03:17: Immature Granulocyte % (Auto) , Neutrophils (%) (Auto) , Nucleated Red Blood Cells % (auto) 0.1H, Neutrophils 90H, Lymphocytes (Manual) 6L, Monocytes (Manual) 3, Atypical Lymphocytes 1, Polychromasia 1+, Poikilocytosis 1+, Anisocytosis 1+, Platelet Estimate NORMAL, Anion Gap 8, Glomerular Filtration Rate 56.9, Calcium Level 7.5L, Phosphorus Level 4.2, Magnesium Level 3.1H, Total Bilirubin 0.6, Aspartate Amino Transf (AST/SGOT) 51H, Alanine Aminotransferase (ALT/SGPT) 39, Alkaline Phosphatase 141H, Troponin I < 0.02, MA-Yrc-M-Type Natriuretic Peptide 1209H, Total Protein 6.0L, Albumin 1.7L, Albumin/Globulin Ratio 0.4 CBC/BMP Laboratory Tests 12/14/20 03:17 Microbiology Microbiology 12/12/20 Blood Culture - Preliminary, Resulted No growth after 24 hours . All specim... 12/12/20 Urine Culture - Final, Complete 12/12/20 Respiratory Virus Panel (PCR) (TAE) - Final, Complete Human Rhinovirus/Enterovirus 12/12/20 Blood Culture - Preliminary, Resulted No growth after 24 hours . All specim... LEATHA SOSA MD Dec 14, 2020 10:40
[2020-12-14] MEDS: AZITHROMYCIN INJ 500 MG, VIAL MATE ADAPTER 1 EACH in NS 250 ML IV SCH (12:23)
--- NOTE | 2020-12-14 14:27 | IPNPDOC ---
Subjective Date Seen The patient was seen on 12/14/20. Subjective Chief Complaint/HPI Patient was seen and examined at bedside this morning. He was asking to be fed as he had not ate since hospitalization due to being on BiPAP majority of the time. Reported significant improvement in his breathing. He denies chest pain, nausea and vomiting. He had abdominal pain on 12/13 which she says now has resolved. Overnight patient went into A. fib RVR. He remained asymptomatic throughout this episode. He received digoxin. Other systems 10 point review of system is negative except for what is noted in the HPI. Objective Physical Examination Neck Exam: Negative: JVD Psych Exam: Positive: Oriented x 3 Other physical findings General: Lying in bed, no acute distress Head/Neck/Throat: Trachea midline, mucous membranes moist Eyes: Sclera anicteric, no erythema or discharge appreciated bilaterally Thorax: Coarse breath sounds over left lung field, diminished and diminished at the base. Coarse breath sounds over right lung field. Cardiovascular: Normal rate, regular rhythm, normal S1, S2; no S3, S4, rubs/gallops/murmurs Abdomen: Bowel sounds present, soft, reports no tenderness with palpation Genitourinary: No CVA tenderness, no Archuleta in place Musculoskeletal: Moving all extremities, no edema Skin: Warm, dry Neurologic: AAOx3, speech fluent and goal-directed, no focal deficits, grossly intact Assessment /Plan Plan/VTE VTE Prophylaxis Ordered?: Yes Plan #Atrial fibrillation -New onset A. fib RVR overnight. Likely 2/2 to his respiratory status. -Did not respond well to beta yudelka during episode of rapid a.fib. We will utilize digoxin if his heart rate is to increase. Anticipate resolution with improving respiratory status. Spoke with cardiology, recommended metoprolol po to be started and continue with systemic anticoagulation for now. HR goal < 110. He is on system anticoagulation -Follow up on echocardiogram. #Acute respiratory failure with hypoxia and hypercapnia -Improving. He was able to come off BiPAP today and be placed on 4 L nasal cannula. This is secondary to viral pneumonia with superimposed bacterial pne umonia -Continue with BiPAP as needed and at night. -Pulmonary toileting with nebulizer treatments, chest pt, and normal saline nebulizers. Begin to taper Solu-Medrol. #Sepsis -Viral pneumonia with superimposed bacterial pneumonia. Continue with Zosyn and azithromycin until we have cultures from sputum, mycoplasma, strep pneumonia and Legionella antigen screening. #Abdominal pain -CT scan findings show no acute pathology to explain the symptoms. However, today he is not complaining of any abdominal pain. May be secondary to high BiPAP settings, will give a trial of rest from BiPAP if his respiratory status allows see if this improves his pain #Schizophrenia -Reported history but not on any medication #DVT prophylax -Heparin subcu VS, I&O, 24H, Fishbone Vital Signs/I&O Vital Signs Date Time Temp Pulse Resp B/P (MAP) Pulse Ox O2 Delivery O2 Flow Rate FiO2 12/14/20 12:00 83 22 132/60 (84) 93 Nasal Cannula 4.0 12/14/20 08:00 97.7 12/14/20 07:20 30 I&O- Last 24 Hours up to 6 AM 12/14/20 06:00 Intake Total 1850 ml Output Total 1575 ml Balance 275 ml Laboratory Data 24H LABS Laboratory Tests 2 12/13/20 19:02: Vancomycin Level Trough 8.6L 12/14/20 03:17: Immature Granulocyte % (Auto) , Neutrophils (%) (Auto) , Nucleated Red Blood Cells % (auto) 0.1H, Neutrophils 90H, Lymphocytes (Manual) 6L, Monocytes (Manual) 3, Atypical Lymphocytes 1, Polychromasia 1+, Poikilocytosis 1+, Anisocytosis 1+, Platelet Estimate NORMAL, Anion Gap 8, Glomerular Filtration Rate 56.9, Calcium Level 7.5L, Phosphorus Level 4.2, Magnesium Level 3.1H, Total Bilirubin 0.6, Aspartate Amino Transf (AST/SGOT) 51H, Alanine Aminotransferase (ALT/SGPT) 39, Alkaline Phosphatase 141H, Troponin I < 0.02, IN-Isw-K-Type Natriuretic Peptide 1209H, Total Protein 6.0L, Albumin 1.7L, Albumin/Globulin Ratio 0.4 CBC/BMP Laboratory Tests 12/14/20 03:17 Microbiology Microbiology 12/12/20 Blood Culture - Preliminary, Resulted No growth after 24 hours . All specim... 12/12/20 Urine Culture - Final, Complete 12/12/20 Respiratory Virus Panel (PCR) (TAE) - Final, Complete Human Rhinovirus/Enterovirus 12/12/20 Blood Culture - Preliminary, Resulted No growth after 24 hours . All specim... AKRAM,MARÍA J. M.D. Dec 14, 2020 14:03
[2020-12-14] MEDS: METOPROLOL TART 25 MG TABLET PO SCH (17:11)
[2020-12-14] MEDS ORDERED: LORazepam 0.5 MG TAB PO ONE (21:15)
[2020-12-14] MEDS: RAMELTEON 8 MG TAB (ROZEREM) PO SCH (21:19)
[2020-12-15] VITALS (11 sets, daily range): BP systolic 142–180; BP diastolic 65–102
[2020-12-15] MEDS: METOPROLOL TART 25 MG TABLET PO SCH ×2 (00:33→05:31)
[2020-12-15] MEDS: IPRATROPIUM 0.5MG/ALBUTEROL 2.5MG INH SOL UD 3ML (DUONEB) NEB SCH ×6 (00:39→19:13)
[2020-12-15] MEDS: methylPREDNISolone 125MG 2ML VIAL IV SCH ×4 (04:19→21:41)
[2020-12-15] MEDS: ENOXAPARIN 100MG/1ML SYRINGE (J1650 PER 10MG) SC SCH ×2 (04:20→16:51)
[2020-12-15] MEDS: PIPERACILLIN/TAZOBACTAM SOD 3.375 GM in D5W MINI-BAG PLUS 50 ML IV SCH ×4 (04:20→21:41)
[2020-12-15 05:41] LABS: HEMOGLOBIN A1c 5.4 %
[2020-12-15 06:00] LABS: BLOOD UREA NITROGEN 64 MG/DL (7-18); CALCIUM LEVEL 8.2 MG/DL (8.8-10.2); CARBON DIOXIDE LEVEL 28 MEQ/L (21-32); CHLORIDE LEVEL 108 MEQ/L (98-107); GLOMERULAR FILTRATION RATE > 60.0 (>49); GLUCOSE, FASTING 132 MG/DL (70-100); PHOSPHORUS LEVEL 3.7 MG/DL (2.5-4.9); POTASSIUM SERUM 4.8 MEQ/L (3.5-5.1); SODIUM LEVEL 140 MEQ/L (136-145)
[2020-12-15 06:01] LABS: CHOLESTEROL LEVEL 166 MG/DL (<200); HDL CHOLESTEROL 11 MG/DL (>40); LDL CHOLESTEROL 97 MG/DL (<100); MAGNESIUM LEVEL 2.9 MG/DL (1.8-2.4); NON-HDL-C 155 MG/DL; THYROID STIMULATING HORMONE 0.679 uIU/ML (0.358-3.740); TRIGLYCERIDES LEVEL 288 MG/DL (<150)
[2020-12-15] MEDS ORDERED: IPRATROPIUM 0.5MG/ALBUTEROL 2.5MG INH SOL UD 3ML (DUONEB) NEB ONE (08:00)
--- NOTE | 2020-12-15 08:38 | REPVR ---
PROCEDURE INFORMATION: Exam: US Retroperitoneal Limited, Kidneys Exam date and time: 12/15/2020 6:45 AM Age: 60 years old Clinical indication: Condition or disease; Other: Matthew TECHNIQUE: Imaging protocol: Real-time ultrasound of the retroperitoneum with image documentation. Examination was focused on the kidneys. COMPARISON: CT ABD PELVIS W/O CONTRAST 12/13/2020 3:25 PM FINDINGS: Right kidney: Right kidney measures 11.0 cm in length. No renal mass, calculus, or hydronephrosis. Left kidney: Left kidney measures 11.6 cm in length. No renal mass, calculus, or hydronephrosis. Bladder: Nondistended bladder limiting evaluation. Liver: Fatty infiltration of the incompletely visualized liver. IMPRESSION: No acute sonographic abnormality in the visualized kidneys and upper collecting systems. Electronically signed by: Diego Edward On 12/15/2020 08:37:29 AM
[2020-12-15] MEDS: guaiFENesin ER 600 MG TAB PO SCH ×2 (09:00→21:40)
--- NOTE | 2020-12-15 09:24 | IPNPDOC ---
Subjective Date Seen The patient was seen on 12/15/20. Subjective Chief Complaint/HPI Patient still complains of shortness of breath and productive cough but unable to bring up sputum. He denies fever, chills, chest pain or orthopnea. General: Denies: Chills, Night Sweats, Fatigue Constitutional: Denies: Fever ENT: Denies: Post Nasal Drip, Sore Throat Skin: Denies: Rash Pulmonary: Reports: Dyspnea, Cough Cardiovascular: Denies: Chest Pain, Palpitations, Orthopnea, Edema Gastrointestinal: Denies: Nausea, Vomiting, Abdominal Pain, Diarrhea Neurological: Denies: Weakness, Numbness Objective Physical Examination General Exam: Positive: Alert, Cooperative, Mild Distress Eye Exam: Positive: Sclera icteric ENT Exam: Positive: Atraumatic Neck Exam: Negative: JVD Chest Exam: Positive: Rhonchi (Wet crackles more audible in the left lung field.), Wheezing (Wheezing bilaterally in all lung adams.) Heart Exam: Positive: Regular Rhythm Abdomen Exam: Positive: Normal bowel sounds, Soft; Negative: Tenderness Skin Exam: Negative: Rash Neuro Exam: Negative: Normal Speech Psych Exam: Positive: Oriented x 3 Assessment /Plan Assessment This is a 60 yo gentleman with history of schizophrenia admitted to the hospital with multi-lobar PNA and hypoxic and hypercapnic respiratory failure. 1. Hypoxic and hypercapnic respiratory failure 2. Multi-lobar bacterial PNA involving the entire left lung field with superimposed viral/rhinovirus PNA 3. KEHINDE 4. COPD exacerbation 5. Small left pleural effusion Plan/VTE VTE Prophylaxis Ordered?: Yes Plan 1. Continue with current antibiotic regimes (zosyn and azithromycin). 2. Systemic corticosteroid dose was increased by primary due to COPD exacerbation. 3. Restarted back on BiPAP 16/8, FiO2 30% for respiratory support. 4. Encourage right lateral decubitus position to improve V/Q mismatch. 5. OOB, continue with chest PT. 6. We will need to have a repeat chest x-ray in 6 to 8 weeks to ensure resolution of his ongoing pneumonia. VS, I&O, 24H, Fishbone Vital Signs/I&O Vital Signs Date Time Temp Pulse Resp B/P (MAP) Pulse Ox O2 Delivery O2 Flow Rate FiO2 12/15/20 08:00 4.0 12/15/20 08:00 96.9 72 24 158/79 (105) 93 Nasal Cannula 12/14/20 07:20 30 I&O- Last 24 Hours up to 6 AM 12/15/20 06:00 Intake Total 2475 ml Output Total 1475 ml Balance 1000 ml Laboratory Data 24H LABS Laboratory Tests 2 12/15/20 05:04: Anion Gap 4L, Glomerular Filtration Rate > 60.0, Estimated Mean Plasma Glucose 108, Hemoglobin A1c 5.4, Calcium Level 8.2L, Phosphorus Level 3.7, Magnesium Level 2.9H, Triglycerides Level 288H, Total Cholesterol 166, LDL Cholesterol 97, Non-HDL Cholesterol (LDL + VLDL) 155, Total HDL Cholesterol 11L, Cholesterol/HDL Ratio 15.090H, Thyroid Stimulating Hormone (TSH) 0.679 CBC/BMP Laboratory Tests 12/15/20 05:04 Microbiology Microbiology 12/12/20 Blood Culture - Preliminary, Resulted No Growth after 48 hours. All Specime... 12/12/20 Urine Culture - Final, Complete 12/12/20 Respiratory Virus Panel (PCR) (TAE) - Final, Complete Human Rhinovirus/Enterovirus 12/12/20 Blood Culture - Preliminary, Resulted No Growth after 48 hours. All Specime... LEATHA SOSA MD Dec 15, 2020 09:24
--- NOTE | 2020-12-15 10:41 | IPNPDOC ---
Subjective Date Seen The patient was seen on 12/15/20. Subjective Chief Complaint/HPI Patient was seen and examined at bedside this morning. He had just finished chest PT. He reported having episodes of shortness of breath and a dry cough without being able to bring anything up. He denied chest pain, abdominal pain, nausea, vomiting, pain with urination or bowel movements. Other systems 10 point review of system was negative except for what is noted in the HPI Objective Physical Examination Neck Exam: Negative: JVD Psych Exam: Positive: Oriented x 3 Other physical findings General: Lying in bed, no acute distress Head/Neck/Throat: Trachea midline, mucous membranes moist Eyes: Sclera anicteric, no erythema or discharge appreciated bilateral Thorax: On 4 L nasal cannula, bronchospastic, wheezing, use of accessory muscles. Cardiovascular: Normal rate, irregularly irregular rhythm, normal S1, S2; no S3, S4, rubs/gallops/murmurs Abdomen: Bowel sounds present, soft/nontender/nondistended Genitourinary: No CVA tenderness, no Archuleta in place Musculoskeletal: Moving all extremities, no edema Skin: Warm, dry Neurologic: AAOx3, speech fluent and goal-directed, no focal deficits, grossly intact Assessment /Plan Assessment #Atrial fibrillation -Likely 2/2 to his respiratory status. Still remains in atrial fibrillation. Heart rate is controlled. He was started on metoprolol, however, it is possible that this may be contributing to his bronchospasm again. We will switch him to diltiazem. Continue systemic anticoagulation for now. #Acute respiratory failure with hypoxia and hypercapnia -Was bronchospastic and wheezing this morning, although he was maintaining his saturations on 4 L he was using accessory muscles to breathe. An additional DuoNeb treatment was given and his steroids have increased back to every 6 from every 8 hours. -Continue with BiPAP support at this time. -Pulmonary toileting with nebulizer treatments, chest pt, and normal saline nebulizers. Begin to taper Solu-Medrol. #Sepsis -Viral pneumonia with superimposed bacterial pneumonia. Continue with Zosyn and azithromycin until we have cultures from sputum, mycoplasma, strep pneumonia and Legionella antigen screening. #Abdominal pain -CT scan findings show no acute pathology to explain the symptoms. This was secondary to high BiPAP settings. His symptoms have resolved ever since he has been given breaks from BiPAP. #Schizophrenia -Reported history but not on any medication #DVT prophylax -On therapeutic Lovenox for A. fib. Plan/VTE VTE Prophylaxis Ordered?: Yes VS, I&O, 24H, Fishbone Vital Signs/I&O Vital Signs Date Time Temp Pulse Resp B/P (MAP) Pulse Ox O2 Delivery O2 Flow Rate FiO2 12/15/20 06:00 70 179/81 (113) 90 Nasal Cannula 4.0 12/15/20 04:00 98.3 19 12/14/20 07:20 30 I&O- Last 24 Hours up to 6 AM 12/15/20 06:00 Intake Total 2475 ml Output Total 1475 ml Balance 1000 ml Laboratory Data 24H LABS Laboratory Tests 2 12/15/20 05:04: Anion Gap 4L, Glomerular Filtration Rate > 60.0, Estimated Mean Plasma Glucose 108, Hemoglobin A1c 5.4, Calcium Level 8.2L, Phosphorus Level 3.7, Magnesium Level 2.9H, Triglycerides Level 288H, Total Cholesterol 166, LDL Cholesterol 97, Non-HDL Cholesterol (LDL + VLDL) 155, Total HDL Cholesterol 11L, Cholesterol/HDL Ratio 15.090H, Thyroid Stimulating Hormone (TSH) 0.679 CBC/BMP Laboratory Tests 12/15/20 05:04 Microbiology Microbiology 12/12/20 Blood Culture - Preliminary, Resulted No Growth after 48 hours. All Specime... 12/12/20 Urine Culture - Final, Complete 12/12/20 Respiratory Virus Panel (PCR) (TAE) - Final, Complete Human Rhinovirus/Enterovirus 12/12/20 Blood Culture - Preliminary, Resulted No Growth after 48 hours. All Specime... MARÍA STEARNS M.D. Dec 15, 2020 06:45
[2020-12-15] MEDS: AZITHROMYCIN INJ 500 MG, VIAL MATE ADAPTER 1 EACH in NS 250 ML IV SCH (13:08)
[2020-12-15] MEDS ORDERED: ACETAMINOPHEN TAB 650MG DOSE (2X325MG) PO ONE (17:00)
[2020-12-15] MEDS: RAMELTEON 8 MG TAB (ROZEREM) PO SCH (21:40)
[2020-12-16] VITALS: BP 150/82
[2020-12-16] MEDS: IPRATROPIUM 0.5MG/ALBUTEROL 2.5MG INH SOL UD 3ML (DUONEB) NEB SCH ×6 (00:02→20:22)
[2020-12-16] MEDS: ENOXAPARIN 100MG/1ML SYRINGE (J1650 PER 10MG) SC SCH ×2 (03:37→17:06)
[2020-12-16] MEDS: methylPREDNISolone 125MG 2ML VIAL IV SCH ×4 (03:37→20:42)
[2020-12-16] MEDS: PIPERACILLIN/TAZOBACTAM SOD 3.375 GM in D5W MINI-BAG PLUS 50 ML IV SCH ×4 (03:37→20:42)
[2020-12-16 04:00] VITALS: BP 164/73
[2020-12-16 04:15] LABS: HEMATOCRIT 34.4 % (42.0-52.0); HEMOGLOBIN 11.5 g/dl (13.5-17.5); MEAN CORPUSCULAR HEMOGLOBIN 30.4 pg (27.0-33.0); MEAN CORPUSCULAR HGB CONC 33.4 g/dl (32.0-36.5); PLATELET COUNT, AUTOMATED 279 10^3/uL (150-450); RED BLOOD COUNT 3.78 10^6/uL (4.30-6.10); WHITE BLOOD COUNT 23.1 10^3/uL (4.0-10.0)
[2020-12-16 04:48] LABS: BLOOD UREA NITROGEN 51 MG/DL (7-18); CALCIUM LEVEL 7.7 MG/DL (8.8-10.2); CARBON DIOXIDE LEVEL 29 MEQ/L (21-32); CHLORIDE LEVEL 108 MEQ/L (98-107); CREATININE FOR GFR 0.95 MG/DL (0.70-1.30); GLOMERULAR FILTRATION RATE > 60.0 (>49); GLUCOSE, FASTING 156 MG/DL (70-100); MAGNESIUM LEVEL 2.6 MG/DL (1.8-2.4); PHOSPHORUS LEVEL 2.8 MG/DL (2.5-4.9); POTASSIUM SERUM 4.9 MEQ/L (3.5-5.1); SODIUM LEVEL 140 MEQ/L (136-145)
[2020-12-16 08:07] VITALS: BP 174/80
[2020-12-16] MEDS: guaiFENesin ER 600 MG TAB PO SCH ×2 (08:45→20:40)
[2020-12-16] MEDS ORDERED: lisinopriL 5 MG TAB PO SCH (09:00)
--- NOTE | 2020-12-16 09:37 | IPNPDOC ---
Subjective Date Seen The patient was seen on 12/16/20. Subjective Chief Complaint/HPI Patient seen and examined at bedside this morning. He was on the BiPAP and reported feeling better today. He denied chest pain, shortness of breath, abdominal pain, nausea, vomiting, problems urination and bowel movements Other systems 10 point review of system was negative except for what is noted in the HPI Objective Physical Examination Other physical findings General: Lying in bed, no acute distress Head/Neck/Throat: Trachea midline, mucous membranes moist Eyes: Sclera anicteric, no erythema or discharge appreciated bilateral Thorax: On BiPAP with mild wheezing appreciated Cardiovascular: Normal rate, irregularly irregular rhythm, normal S1, S2; no S3, S4, rubs/gallops/murmurs Abdomen: Bowel sounds present, soft/nontender/nondistended Genitourinary: No CVA tenderness, no Archuleta in place Musculoskeletal: Moving all extremities, no edema Skin: Warm, dry Neurologic: AAOx3, speech fluent and goal-directed, no focal deficits, grossly intact Assessment /Plan Plan/VTE VTE Prophylaxis Ordered?: Yes Plan #Atrial fibrillation -Now back in two normal sinus rhythm with controlled heart rates. This was likely 2/2 to his respiratory status. He was started on metoprolol, however, it is possible that this may be contributing to his bronchospasm again; continue with diltiazem. Continue systemic anticoagulation for now. #Acute respiratory failure with hypoxia and hypercapnia -On 12/15 patient was severely bronchospastic and wheezing, and using accessory muscles to breathe. Today, patient has significant improvements in lung sounds and is tolerating BiPAP well. We will continue with DuoNeb treatments. Attempt to taper steroids from every 6 hours to every 8 hours. -Pulmonary toileting with nebulizer treatments, chest pt, and normal saline nebulizers. Begin to taper Solu-Medrol. #Sepsis -Viral pneumonia with superimposed bacterial pneumonia. Continue with Zosyn and azithromycin will de-escalate based on cx that are still pending. -Pending: cultures from sputum, mycoplasma, strep pneumonia and Legionella antigen screening as of yet. #Abdominal pain -CT scan findings show no acute pathology to explain the symptoms. This was secondary to high BiPAP settings. His symptoms have resolved ever since he has been given breaks from BiPAP. #Schizophrenia -Reported history but not on any medication #DVT prophylax -On therapeutic Lovenox for A. fib. VS, I&O, 24H, Fishbone Vital Signs/I&O Vital Signs Date Time Temp Pulse Resp B/P (MAP) Pulse Ox O2 Delivery O2 Flow Rate FiO2 12/16/20 05:30 58 12/16/20 04:00 30 12/16/20 04:00 98.0 23 164/73 (103) 95 NIPPV (BIPAP/CPAP) 12/16/20 00:00 I&O- Last 24 Hours up to 6 AM 12/16/20 06:00 Intake Total 2325 ml Output Total 1475 ml Balance 850 ml Laboratory Data 24H LABS Laboratory Tests 2 12/16/20 04:11: Nucleated Red Blood Cells % (auto) 0.0, Anion Gap 3L, Glomerular Filtration Rate > 60.0, Calcium Level 7.7L, Phosphorus Level 2.8#, Magnesium Level 2.6H CBC/BMP Laboratory Tests 12/16/20 04:11 Microbiology Microbiology 12/12/20 Blood Culture - Preliminary, Resulted No Growth after 72 hours. All specime... 12/12/20 Urine Culture - Final, Complete 12/12/20 Respiratory Virus Panel (PCR) (TAE) - Final, Complete Human Rhinovirus/Enterovirus 12/12/20 Blood Culture - Preliminary, Resulted No Growth after 72 hours. All specime... MARÍA STEARNS M.D. Dec 16, 2020 06:26
--- NOTE | 2020-12-16 10:12 | IPNPDOC ---
Subjective Date Seen The patient was seen on 12/16/20. Subjective Chief Complaint/HPI Patient was seen and examined. Patient is sleeping comfortably in his bed with BiPAP on. He denies of any fever or chills. He does admits to productive cough but unable to bring up sputum. General: Denies: Chills Constitutional: Denies: Fever Pulmonary: Reports: Dyspnea, Cough Cardiovascular: Denies: Chest Pain, Orthopnea Gastrointestinal: Denies: Nausea, Vomiting Neurological: Denies: Weakness, Numbness Objective Physical Examination General Exam: Positive: Alert, Cooperative, No Acute Distress Eye Exam: Negative: Sclera icteric ENT Exam: Positive: Atraumatic Neck Exam: Positive: Supple Chest Exam: Positive: Rhonchi Heart Exam: Positive: Rate Normal Abdomen Exam: Positive: Normal bowel sounds, Soft; Negative: Tenderness Extremity Exam: Negative: Clubbing, Edema Neuro Exam: Positive: Normal Speech Assessment /Plan Assessment This is a 60 yo gentleman with history of schizophrenia admitted to the hospital with multi-lobar PNA and hypoxic and hypercapnic respiratory failure. 1. Hypoxic and hypercapnic respiratory failure 2. Multi-lobar bacterial PNA involving the entire left lung field with superimposed viral/rhinovirus PNA 3. KEHINDE 4. COPD exacerbation 5. Small left pleural effusion Plan/VTE VTE Prophylaxis Ordered?: Yes Plan 1. Continue with current antibiotic regimes (zosyn and azithromycin). 2. We can consider to start tapering systemic corticosteroids. 3. Continue with BiPAP 16/8 nightly and as needed, FiO2 30% for respiratory support. 4. Encourage right lateral decubitus position to improve V/Q mismatch. 5. OOB, continue with chest PT. 6. We will need to have a repeat chest x-ray in 6 to 8 weeks to ensure resolution of his ongoing pneumonia. Disposition Continue ICU care. VS, I&O, 24H, Fishbone Vital Signs/I&O Vital Signs Date Time Temp Pulse Resp B/P (MAP) Pulse Ox O2 Delivery O2 Flow Rate FiO2 12/16/20 08:07 97.8 70 25 174/80 (111) 91 Nasal Cannula 2.0 12/16/20 07:51 30 I&O- Last 24 Hours up to 6 AM 12/16/20 06:00 Intake Total 2325 ml Output Total 1475 ml Balance 850 ml Laboratory Data 24H LABS Laboratory Tests 2 12/16/20 04:11: Nucleated Red Blood Cells % (auto) 0.0, Anion Gap 3L, Glomerular Filtration Rate > 60.0, Calcium Level 7.7L, Phosphorus Level 2.8#, Magnesium Level 2.6H CBC/BMP Laboratory Tests 12/16/20 04:11 Microbiology Microbiology 12/12/20 Blood Culture - Preliminary, Resulted No Growth after 72 hours. All specime... 12/12/20 Urine Culture - Final, Complete 12/12/20 Respiratory Virus Panel (PCR) ([facility]) - Final, Complete Human Rhinovirus/Enterovirus 12/12/20 Blood Culture - Preliminary, Resulted No Growth after 72 hours. All specime... LEATHA SOSA MD Dec 16, 2020 10:12
--- NOTE | 2020-12-16 10:12 | ECHO ---
ECHOCARDIOGRAM DATE OF PROCEDURE: 12/13/2020 Age: 60 Gender: Male Height: Weight: REFERRING PHYSICIAN: Too Ortiz M.D. PATIENT LOCATION: Room 3204. REASON FOR THE TESTING: Heart failure. MEASUREMENTS: 2D Measurements: IVS 0.9 cm LV 5.4 cm LVWP 1.0 cm LA 3.6 cm Aorta 3.6 cm IVC 2.2 cm Doppler Measurements: Peak velocity across the aortic valve 1.3 m/sec Peak velocity across the LVOT 0.92 m/sec Mitral E 0.95 Mitral A 0.60 with a ratio of greater than 1.0 2D COMMENTS: 1. Normal left ventricular size, wall thickness and normal global left ventricular systolic function. The estimated left ventricular systolic ejection fraction is 60-65%. 2. Normal left atrium. Normal right atrium and right ventricle. 3. The atrial septum appeared to be normal without evidence of defect or shunt. 4. Normal aortic root. 5. Trace pericardial effusion noted. No evidence of cardiac tamponade. 6. Mildly calcified aortic valve with normal leaflet excursion. Mildly calcified mitral annulus with normal anterior mitral valve leaflet motion. Normal tricuspid valve. The pulmonic valve and proximal pulmonary artery branches were not well visualized. 7. The inferior vena cava was mildly dilated. Central venous pressure might be elevated. DOPPLER: It detects trace mitral regurgitation. Assessment of the left ventricular diastolic function appeared to be normal. IMPRESSION: 1. Normal global left ventricular systolic function. Assessment of the left ventricular diastolic function appeared to be normal. 2. Aortic valve sclerosis without stenosis or aortic regurgitation. 3. Mitral annulus calcification with trace mitral regurgitation. 4. Trace pericardial effusion. MTDD
[2020-12-16] MEDS: AZITHROMYCIN INJ 500 MG, VIAL MATE ADAPTER 1 EACH in NS 250 ML IV SCH (12:25)
[2020-12-16 12:26] VITALS: BP 172/74
[2020-12-16 15:27] VITALS: BP 179/81
[2020-12-16 20:00] VITALS: BP 170/77
[2020-12-16] MEDS: RAMELTEON 8 MG TAB (ROZEREM) PO SCH (20:40)
[2020-12-17] VITALS (17 sets, daily range): BP systolic 138–209; BP diastolic 67–152
[2020-12-17] MEDS ORDERED: BENZONATATE 100 MG CAP PO PRN (03:10)
[2020-12-17] MEDS: PIPERACILLIN/TAZOBACTAM SOD 3.375 GM in D5W MINI-BAG PLUS 50 ML IV SCH ×4 (04:20→21:08)
[2020-12-17] MEDS: methylPREDNISolone 125MG 2ML VIAL IV SCH ×3 (04:21→20:40)
[2020-12-17] MEDS: ENOXAPARIN 100MG/1ML SYRINGE (J1650 PER 10MG) SC SCH ×2 (04:21→17:31)
[2020-12-17] MEDS: IPRATROPIUM 0.5MG/ALBUTEROL 2.5MG INH SOL UD 3ML (DUONEB) NEB SCH ×7 (04:47→23:43)
[2020-12-17 05:26] LABS: HEMATOCRIT 34.1 % (42.0-52.0); HEMOGLOBIN 11.4 g/dl (13.5-17.5); MEAN CORPUSCULAR HEMOGLOBIN 30.6 pg (27.0-33.0); MEAN CORPUSCULAR HGB CONC 33.4 g/dl (32.0-36.5); MEAN CORPUSCULAR VOLUME 91.7 fl (80.0-96.0); PLATELET COUNT, AUTOMATED 306 10^3/uL (150-450); RED BLOOD COUNT 3.72 10^6/uL (4.30-6.10); WHITE BLOOD COUNT 19.4 10^3/uL (4.0-10.0)
[2020-12-17 06:00] LABS: BLOOD UREA NITROGEN 43 MG/DL (7-18); CALCIUM LEVEL 7.5 MG/DL (8.8-10.2); CARBON DIOXIDE LEVEL 30 MEQ/L (21-32); CHLORIDE LEVEL 106 MEQ/L (98-107); CREATININE FOR GFR 0.84 MG/DL (0.70-1.30); GLOMERULAR FILTRATION RATE > 60.0 (>49); GLUCOSE, FASTING 171 MG/DL (70-100); MAGNESIUM LEVEL 2.2 MG/DL (1.8-2.4); PHOSPHORUS LEVEL 2.8 MG/DL (2.5-4.9); POTASSIUM SERUM 5.1 MEQ/L (3.5-5.1); SODIUM LEVEL 142 MEQ/L (136-145)
[2020-12-17] MEDS: guaiFENesin ER 600 MG TAB PO SCH ×2 (08:17→20:40)
--- NOTE | 2020-12-17 08:49 | REP ---
INDICATION: pneumonia. COMPARISON: Multiple the latest 12/14/2020 TECHNIQUE: Portable FINDINGS: The technique utilized in obtaining the radiograph has magnified the cardiac silhouette and accentuated the interstitial markings. The cardiomediastinal silhouette is unchanged. There is no evidence of cardiomegaly. Airspace opacities seen in left upper lobe have decreased. Slightly patchy opacity seen in the right mid and lower lung zones possibly slightly increased although the examination was obtained with less inspiration compared to the prior exam. There is no change in the osseous structures. IMPRESSION: Evidence of improvement and technically related findings as described above. Follow-up is suggested. <Electronically signed by Farooq Boyle > 12/17/20 [id number]
[2020-12-17 09:08] LABS: ABG BASE EXCESS 5.1 (-2.0-2.0); ABG HCO3 29.5 MEQ/L (22.0-26.0); ABG O2 SATURATION 95.5 % (95.0-99.0); ABG PARTIAL PRESSURE CO2 42.7 mmHg (35.0-45.0); ABG PARTIAL PRESSURE O2 77.1 mmHg (75.0-100.0); ABG TOTAL CO2 30.8 MEQ/L (23.0-31.0); ABG pH (ARTERIAL) 7.457 UNITS (7.350-7.450)
--- NOTE | 2020-12-17 10:19 | IPNPDOC ---
Subjective Date Seen The patient was seen on 12/17/20. Subjective Chief Complaint/HPI Patient seen and examined at bedside this morning. He reported some abdominal comfort while he was on the BiPAP, but reports improvement in his breathing. He also endorsed feeling slightly anxious because he was unable to speak to his family/mother. Other systems 10 point review of system was negative except for what is noted in the HPI Objective Physical Examination Other physical findings General: Lying in bed, no acute distress Head/Neck/Throat: Trachea midline, mucous membranes moist Eyes: Sclera anicteric, no erythema or discharge appreciated bilaterally Thorax: Normal respiratory effort on room air, there is mild wheezing appreciated bilaterally Cardiovascular: Normal rate, regular rhythm, normal S1, S2; no S3, S4 Abdomen: Bowel sounds present, soft, reports mild tenderness with palpation Genitourinary: No CVA tenderness, no Archuleta in place Musculoskeletal: Moving all extremities, no edema Skin: Warm, dry Neurologic: AAOx3, speech fluent and goal-directed, no focal deficits, grossly intact Assessment /Plan Plan/VTE VTE Prophylaxis Ordered?: Yes Plan #Atrial fibrillation -Now back in two normal sinus rhythm with controlled heart rates. This was likely 2/2 to his respiratory status. He was started on metoprolol, however, he became bronchospastic therefore will continue with diltiazem. Continue systemic anticoagulation for now. #Acute respiratory failure with hypoxia and hypercapnia -Today, he had mild wheezing but there is overall improvement in his respiratory status. We will continue to try to take him off the BiPAP. Trials in the past have been unsuccessful. -We will continue with DuoNeb treatments. Attempt to taper steroids from every 6 hours to every 8 hours. -Pulmonary toileting with nebulizer treatments, chest pt, and normal saline nebulizers. Begin to taper Solu-Medrol. #Sepsis -Viral pneumonia with superimposed bacterial pneumonia. Continue with Zosyn and azithromycin will de-escalate based on cx that are still pending. -Pending: cultures from sputum, mycoplasma, strep pneumonia and Legionella antigen screening as of yet. MRSA was negative therefore vancomycin was discontinued. #Abdominal pain -CT scan findings show no acute pathology to explain the symptoms. This is secondary to high BiPAP settings. His symptoms once he is off the BiPAP #Schizophrenia -Reported history but not on any medication -on 12/17 olanzapine was given he is he is becoming a little anxious/agitated. Continue to monitor for required will start standing dose #DVT prophylax -On therapeutic Lovenox for Lizette. angelo. Dispo: ICU for now, until he is able to remain off bipap. Would appreciate physical and occupational therapy to work with him. Critical care time spent: 75 minutes VS, I&O, 24H, Fishbone Vital Signs/I&O Vital Signs Date Time Temp Pulse Resp B/P (MAP) Pulse Ox O2 Delivery O2 Flow Rate FiO2 12/17/20 08:17 177/79 12/17/20 07:10 30 12/17/20 04:33 72 12/17/20 04:00 97.5 26 95 Nasal Cannula 4.0 I&O- Last 24 Hours up to 6 AM 12/17/20 06:00 Intake Total 2035 ml Output Total 1075 ml Balance 960 ml Laboratory Data 24H LABS Laboratory Tests 2 12/17/20 05:17: Nucleated Red Blood Cells % (auto) 0.0, Anion Gap 6L, Glomerular Filtration Rate > 60.0, Calcium Level 7.5L, Phosphorus Level 2.8, Magnesium Level 2.2 12/17/20 08:55: Blood Gas Bicarbonate Standard 29.0H, Arterial Blood pH 7.457H, Arterial Blood Partial Pressure CO2 42.7, Arterial Blood Partial Pressure O2 77.1, Arterial Blood Total CO2 30.8, Arterial Blood HCO3 29.5H, Arterial Blood Base Excess 5.1H, Arterial Blood Oxygen Saturation 95.5 CBC/BMP Laboratory Tests 12/17/20 05:17 Microbiology Microbiology 12/12/20 Blood Culture - Preliminary, Resulted No Growth after 72 hours. All specime... 12/12/20 Urine Culture - Final, Complete 12/12/20 Respiratory Virus Panel (PCR) ([facility]) - Final, Complete Human Rhinovirus/Enterovirus 12/12/20 Blood Culture - Preliminary, Resulted No Growth after 72 hours. All specime... MARÍA STEARNS M.D. Dec 17, 2020 10:16
--- NOTE | 2020-12-17 10:57 | CCN ---
CRITICAL CARE PROGRESS NOTE DATE: 12/17/2020 SUBJECTIVE: The nursing staff reports no overnight events. Patient denies shortness of breath on BiPAP. He reports that he still has some right upper quadrant pain. He is able to tolerate a clear liquid diet without any trouble at this time. The patient denies any chest pain or any new dyspnea symptoms. OBJECTIVE: VITAL SIGNS: Temperature is 97.5, pulse is 72, respiratory rate is 26, blood pressure is 188/82. Oxygen on BiPAP is 96%, BiPAP settings: I-PAP 16, E-PAP 8, respiratory rate 10, FIO2 30%. I-Time 0.9 seconds. GENERAL: Patient appears in no acute distress. He is sitting upright in bed and is alert and oriented x3. HEENT: EOMI, no ocular discharge, no nasal discharge, oral mucosa is mildly dry. CARDIAC: Mild systolic murmur appreciated 2/6, no rubs or gallops. Regular rate and rhythm. RESPIRATORY: Vesicular sounds distant, left vesicular sounds less than right, however much improvement from 12/13/2020. GI: Bowel sounds are appreciated in all quadrants, soft, mildly distended, patient appreciates mild pain on palpation of right upper quadrant. EXTREMITIES: No edema, cyanosis or clubbing appreciated. DIAGNOSTIC STUDIES: Laboratory: Sodium 142, potassium 5.1, chloride 106, bicarbonate 30, BUN 43, creatinine 0.84, fasting glucose 171. Calcium 7.5, phosphorus 2.8, magnesium 2.2. Procalcitonin as of 12/12/2020: 11.28. White blood cell count 19.4, hemoglobin 11.4, hematocrit 34.1, platelet count 306,000. Last ABG done on 12/13/2020: pH 7.38, pCO2 36.6, pO2 88.7, calculated bicarbonate 21.5. Urine culture results show no growth. Respiratory virus panel from 12/12/2020 shows human rhinovirus/enterovirus positive. Blood cultures showed no growth from 12/12/2020. IMAGING: Last chest x-ray from 12/14/2020 shows interval aeration of the left mid lung from prior, the remainder of the left lung is still consolidated as seen previously on 12/12/2020. Renal ultrasound shows no acute sonographic abnormality in the visualized kidneys and upper collecting systems completed on 12/15/2020. INTAKE AND OUTPUT: Intake on 12/16/2020: 1975 ml, output on 12/16/2020 1075 ml, balance 900 ml. Intake consists of IV Azithromycin 500 mg and Zosyn 3.375 grams. Urine output is 1075 ml. ASSESSMENT AND PLAN: This is a 60-year-old male in respiratory distress on hospital day #6 who is currently on BiPAP. Patient is in the ICU due to hypoxemia secondary to respiratory distress secondary to viral pneumonia likely superimposed bacterial pneumonia. BiPAP settings are being managed by the pulmonary team at this time. 1. Hypoxemia secondary to respiratory distress, etiology likely bacterial superimposed on viral pneumonia. Patient has leukocytosis and elevated procalcitonin as of 12/13/2020. Patient is on day #6 of antibiotics, currently on Zosyn and Azithromycin. Patient tested positive for human rhinovirus/enterovirus. We are considering titrating patient off of BiPAP settings due to low FIO2 requirements of 30%. Chest x-ray was ordered this a.m. ABG was ordered to be taken after patient is titrated off BiPAP and placed on nasal cannula to better appreciate oxygen requirements at this time. Patient states that he is doing better and may tolerate lower oxygen therapy at this time. Continue steroid therapy at this time due to continued ARDS. Patient's lung consolidation appears to have decreased over the last week. Patient continues to have an elevated white count, however this may be secondary to bacterial pneumonia and leukocytosis from steroid therapy. Consider titrating down steroid therapy at this time. 2. Right upper quadrant pain: Patient had elevated alkaline phosphatase. Patient has had no abdominal imaging at this time. Hospitalist note denotes that they were considering a CT of the abdomen, however the patient's right upper quadrant pain has decreased and the patient is tolerating oral intake of food appropriately at this time. Patient does report opting for liquid diet. Medical management is being managed by the attending Hospitalist at this time. 3. KEHINDE: resolving. Patient's BUN and creatinine have decreased significantly. Continue to monitor I and O's daily. 4. Hypertension: Patient's systolic blood pressure has been in the 180s to 170s. Hospitalist attending has started patient on Lisinopril. Continue to monitor renal function on Lisinopril. 5. Schizophrenia: Patient reports that he is on no home medications at this time. Patient exhibits appropriately behavioral contact at this time. Hospitalist team will continue to manage this at this time. 6. DVT prophylaxis: Continue Lovenox. GME ATTESTATION: My faculty preceptor for this patient encounter was physically present during the encounter and was fully available. All aspects of the patient's interview, examination, medical decision making process, and medical care plan development were reviewed and approved by the faculty preceptor. The faculty preceptor is aware and concurs with the plan as stated in the body of this note and will attest to such by his co-signature. CY
[2020-12-17] MEDS: amLODIPine 5 MG TAB PO SCH (11:14)
[2020-12-17] MEDS ORDERED: OLANZapine 2.5MG TABLET PO ONE (12:00)
[2020-12-17] MEDS: AZITHROMYCIN INJ 500 MG, VIAL MATE ADAPTER 1 EACH in NS 250 ML IV SCH (12:24)
[2020-12-17] MEDS ORDERED: hydrALAZINE 20MG/ML 1ML VIAL (J0360 PER 20MG) IV ONE (13:00)
[2020-12-17] MEDS ORDERED: **hydrALAZINE** 10 MG TAB PO SCH (14:00)
[2020-12-17] MEDS ORDERED: LABETALOL 100MG/20ML VIAL IV PRN (14:45)
[2020-12-17] MEDS: RAMELTEON 8 MG TAB (ROZEREM) PO SCH (20:40)
[2020-12-17] MEDS ORDERED: LORazepam 1 MG TAB PO ONE (20:50)
[2020-12-17] MEDS: **hydrALAZINE HCL** 25 MG TAB PO SCH (21:08)
[2020-12-18] VITALS: BP 150/72
[2020-12-18] MEDS: IPRATROPIUM 0.5MG/ALBUTEROL 2.5MG INH SOL UD 3ML (DUONEB) NEB SCH ×5 (03:27→19:54)
[2020-12-18 04:00] VITALS: BP 144/68
[2020-12-18] MEDS: PIPERACILLIN/TAZOBACTAM SOD 3.375 GM in D5W MINI-BAG PLUS 50 ML IV SCH ×4 (04:05→21:44)
[2020-12-18] MEDS: methylPREDNISolone 125MG 2ML VIAL IV SCH ×3 (04:05→20:09)
[2020-12-18] MEDS: ENOXAPARIN 100MG/1ML SYRINGE (J1650 PER 10MG) SC SCH ×2 (04:05→15:29)
[2020-12-18 04:58] LABS: HEMOGLOBIN 10.2 g/dl (13.5-17.5); MEAN CORPUSCULAR HEMOGLOBIN 30.4 pg (27.0-33.0); MEAN CORPUSCULAR HGB CONC 32.9 g/dl (32.0-36.5); MEAN CORPUSCULAR VOLUME 92.5 fl (80.0-96.0); PLATELET COUNT, AUTOMATED 337 10^3/uL (150-450); RED BLOOD COUNT 3.35 10^6/uL (4.30-6.10); WHITE BLOOD COUNT 20.5 10^3/uL (4.0-10.0)
[2020-12-18 05:19] LABS: BLOOD UREA NITROGEN 58 MG/DL (7-18); CALCIUM LEVEL 7.6 MG/DL (8.8-10.2); CARBON DIOXIDE LEVEL 31 MEQ/L (21-32); CHLORIDE LEVEL 106 MEQ/L (98-107); CREATININE FOR GFR 0.91 MG/DL (0.70-1.30); GLOMERULAR FILTRATION RATE > 60.0 (>49); GLUCOSE, FASTING 213 MG/DL (70-100); MAGNESIUM LEVEL 2.2 MG/DL (1.8-2.4); PHOSPHORUS LEVEL 3.8 MG/DL (2.5-4.9); POTASSIUM SERUM 5.6 MEQ/L (3.5-5.1); SODIUM LEVEL 142 MEQ/L (136-145)
[2020-12-18] MEDS: **hydrALAZINE HCL** 25 MG TAB PO SCH ×3 (05:37→21:44)
[2020-12-18 07:56] LABS: BLOOD UREA NITROGEN 61 MG/DL (7-18); CALCIUM LEVEL 7.5 MG/DL (8.8-10.2); CARBON DIOXIDE LEVEL 30 MEQ/L (21-32); CHLORIDE LEVEL 108 MEQ/L (98-107); CREATININE FOR GFR 0.75 MG/DL (0.70-1.30); GLOMERULAR FILTRATION RATE > 60.0 (>49); GLUCOSE, FASTING 206 MG/DL (70-100); POTASSIUM SERUM 4.9 MEQ/L (3.5-5.1); SODIUM LEVEL 142 MEQ/L (136-145)
[2020-12-18 08:00] VITALS: BP 152/71
[2020-12-18] MEDS: amLODIPine 5 MG TAB PO SCH (08:47)
[2020-12-18] MEDS: guaiFENesin ER 600 MG TAB PO SCH ×2 (08:47→20:10)
--- NOTE | 2020-12-18 11:22 | IPNPDOC ---
Subjective Date Seen The patient was seen on 12/18/20. Subjective Chief Complaint/HPI He admits to being tired. He denies fever or chills. He still has intermittent productive cough. He denies chest pain. General: Denies: Chills Constitutional: Denies: Fever ENT: Denies: Sore Throat Skin: Denies: Rash Pulmonary: Reports: Dyspnea, Cough Cardiovascular: Denies: Chest Pain, Orthopnea Gastrointestinal: Denies: Nausea, Vomiting, Abdominal Pain, Diarrhea Neurological: Denies: Weakness Objective Physical Examination General Exam: Positive: Alert, Cooperative, No Acute Distress Eye Exam: Positive: Sclera icteric ENT Exam: Positive: Atraumatic Neck Exam: Positive: Supple Chest Exam: Positive: Diminished (Diminished breath sounds at the left side.); Negative: Wheezing Heart Exam: Positive: Rate Normal, Regular Rhythm Abdomen Exam: Positive: Normal bowel sounds, Soft; Negative: Tenderness Extremity Exam: Negative: Clubbing, Edema Neuro Exam: Positive: Normal Speech Psych Exam: Positive: Mental status NL Assessment /Plan Assessment This is a 60 yo gentleman with history of schizophrenia admitted to the hospital with multi-lobar PNA and hypoxic and hypercapnic respiratory failure. 1. Hypoxic and hypercapnic respiratory failure 2. Multi-lobar bacterial PNA involving the entire left lung field with superimposed viral/rhinovirus PNA 3. KEHINDE 4. COPD exacerbation 5. Small left pleural effusion Plan/VTE VTE Prophylaxis Ordered?: Yes Plan 1. Continue with current antibiotic regimes (zosyn and azithromycin). He is slowly improving 2. We can consider to start tapering systemic corticosteroids. 3. I do not think he requires any more BiPAP support as there is no evidence of wheezing. Last ABG shows respiratory alkalosis from over ventilating. 4. Encourage right lateral decubitus position to improve V/Q mismatch. 5. OOB, continue with chest PT. 6. We will need to have a repeat chest x-ray in 6 to 8 weeks to ensure resolution of his ongoing pneumonia. Disposition Continue hospital care. VS, I&O, 24H, Fishbone Vital Signs/I&O Vital Signs Date Time Temp Pulse Resp B/P (MAP) Pulse Ox O2 Delivery O2 Flow Rate FiO2 12/18/20 11:12 97 12/18/20 11:12 30 12/18/20 08:47 152/71 12/18/20 07:17 32 12/18/20 04:00 96.8 90 NIPPV (BIPAP/CPAP) 12/17/20 12:00 4.0 I&O- Last 24 Hours up to 6 AM 12/18/20 06:00 Intake Total 1355 ml Balance 1355 ml Laboratory Data 24H LABS Laboratory Tests 2 12/18/20 04:26: Nucleated Red Blood Cells % (auto) 0.0, Anion Gap 5L, Glomerular Filtration Rate > 60.0, Calcium Level 7.6L, Phosphorus Level 3.8#, Magnesium Level 2.2 12/18/20 07:22: Anion Gap 4L, Glomerular Filtration Rate > 60.0, Calcium Level 7.5L CBC/BMP Laboratory Tests 12/18/20 04:26 12/18/20 07:22 Microbiology Microbiology 12/12/20 Blood Culture - Final, Complete NO GROWTH AFTER 5 DAYS 12/12/20 Urine Culture - Final, Complete 12/12/20 Respiratory Virus Panel (PCR) ([facility]) - Final, Complete Human Rhinovirus/Enterovirus 12/12/20 Blood Culture - Final, Complete NO GROWTH AFTER 5 DAYS LEATHA SOSA MD Dec 18, 2020 11:22
[2020-12-18 12:00] VITALS: BP 178/80
[2020-12-18] MEDS: AZITHROMYCIN INJ 500 MG, VIAL MATE ADAPTER 1 EACH in NS 250 ML IV SCH (12:06)
--- NOTE | 2020-12-18 13:28 | IPNPDOC ---
Text Note Date of Service The patient was seen on 12/18/20. NOTE Subjective: Patient is a 60-year-old male with PMHx Schizophrenia, who presented to the emergency room dropped off by his cousin is of shortness of breath. Upon arrival to emergency room, patient was found to have a left lower lobe pneumonia and was admitted to the hospitalist service for further evaluation and treatment. ABG had revealed significant respiratory acidosis and patient was placed in the ICU. Pulmonology was called on consultation for noninvasive ventilation. Patient was seen and examined at the bedside. Patient had BiPAP device in place. Denied any chest pain, short of breath, palpitations, nausea, vomiting, abdominal pain, diarrhea, or urinary discomfort. Objective: Vitals (See below) General: Lying in bed, no acute distress, comfortable, AAOx3 HEENT: NC, AT CVS: +S1S2 Lungs: Fair air entry b/l, faint wheezing appreciated, mild rhonchi at LL lung field, no crackles Abdomen: Soft, ND, NT Extremities: - Edema, - Calf tenderness Imaging: CT chest 12/13: 1. Dense lung field opacification as described above. Pneumonia is suspected. Malignancy cannot be ruled out. 2. There is adenopathy as described above. 3. Left pleural effusion. 4. Other findings and exam limitations as described above. CT abdomen / pelvis 12/13: 1. Lung base findings as described above. 2. Limited examination showing no evidence of acute intra-abdominal or in trapelvic disease with findings as described above. ECHO 12/13: 1. Normal global left ventricular systolic function. Assessment of the left ventricular diastolic function appeared to be normal. 2. Aortic valve sclerosis without stenosis or aortic regurgitation. 3. Mitral annulus calcification with trace mitral regurgitation. 4. Trace pericardial effusion. Renal US 12/15: No acute sonographic abnormality in the visualized kidneys and upper collecting systems. CXR 12/17: Evidence of improvement and technically related findings as described above. Follow-up is suggested. Assessment and plan: Acute respiratory failure with hypoxia and hypercapnia - Patient's ABG from yesterday had revealed Westry alkalosis - c/w chest PT / Acapella / Incentive spirometry / Mucinex - c/w inhaled therapy as ordered - Noninvasive ventilation as per pulmonology Sepsis - possibly 2/2 viral pneumonia with superimposed bacterial pneumonia - Blood cultures 12/12: No growth at 5 days - Respiratory panel 12/12: Human rhinovirus/enterovirus - c/w Azithromycin and Zosyn (Day #7); s/p Vancomycin Atrial fibrillation - Patient currently is rate controlled - Throid function noted - ECHO noted above - Will continue with rate control with Diltiazem - Will continue with full anticoagulation with Lovenox therapeutic; will transition to Eliquis within 24 hours s/p Abdominal pain Schizophrenia - s/p Olanzapine during hospital course - Currently not requiring any further intervention - Will have outpatient follow up with Psychiatry DVT prophylaxis - c/w full anticoagulation with therapeutic Lovenox Disposition: - Awaiting clinical improvement VS,Fishbone, I+O VS, Fishbone, I+O Laboratory Tests 12/18/20 04:26 12/18/20 07:22 Vital Signs Date Time Temp Pulse Resp B/P (MAP) Pulse Ox O2 Delivery O2 Flow Rate FiO2 12/18/20 12:06 71 178/80 12/18/20 12:00 40 12/18/20 12:00 97.6 26 95 NIPPV (BIPAP/CPAP) 12/17/20 12:00 4.0 I&O- Last 24 Hours up to 6 AM 12/18/20 06:00 Intake Total 1355 ml Balance 1355 ml TEO WANG MD Dec 18, 2020 13:28
[2020-12-18 16:00] VITALS: BP 152/82
[2020-12-18 20:00] VITALS: BP 136/63
[2020-12-18] MEDS: RAMELTEON 8 MG TAB (ROZEREM) PO SCH (20:09)
[2020-12-18 23:12] LABS: MYCOPLASMA PNEUMONIAE IgG 178 U/mL (0-99); MYCOPLASMA PNEUMONIAE IgM <770 U/mL (0-769)
[2020-12-19] VITALS (16 sets, daily range): BP systolic 108–158; BP diastolic 55–74; O2SAT 92
[2020-12-19] MEDS: methylPREDNISolone 125MG 2ML VIAL IV SCH ×3 (03:21→20:20)
[2020-12-19] MEDS: PIPERACILLIN/TAZOBACTAM SOD 3.375 GM in D5W MINI-BAG PLUS 50 ML IV SCH ×4 (03:21→21:50)
[2020-12-19] MEDS: ENOXAPARIN 100MG/1ML SYRINGE (J1650 PER 10MG) SC SCH (03:22)
[2020-12-19] MEDS: IPRATROPIUM 0.5MG/ALBUTEROL 2.5MG INH SOL UD 3ML (DUONEB) NEB SCH ×7 (04:00→23:20)
[2020-12-19] MEDS: **hydrALAZINE HCL** 25 MG TAB PO SCH ×3 (05:21→21:49)
--- NOTE | 2020-12-19 08:09 | REP ---
INDICATION: Decreased lung sounds at L side. COMPARISON: 12/17/2020 TECHNIQUE: AP view FINDINGS: There is 100% left pneumothorax with minimal associated tension and mediastinal shift to the right. This has increased markedly since the study done 12/17/2020. IMPRESSION: 100% left pneumothorax with minimal associated tension. <Electronically signed by Macario Armstrong > 12/19/20 0805
[2020-12-19 08:12] LABS: BASO % 0.1 % (0.0-1.0); LYMPH # 2.3 10^3/uL (1.5-5.0); LYMPH % 11.7 % (24.0-44.0); MEAN CORPUSCULAR HEMOGLOBIN 30.7 pg (27.0-33.0); MEAN CORPUSCULAR HGB CONC 31.6 g/dl (32.0-36.5); MONO # 0.5 10^3/uL (0.0-0.8); MONO % 2.7 % (2.0-8.0); NEUTROPHILS # 16.4 10^3/uL (1.5-8.5); NEUTROPHILS % 82.6 % (36.0-66.0); PLATELET COUNT, AUTOMATED 183 10^3/uL (150-450); RED BLOOD COUNT 2.02 10^6/uL (4.30-6.10); WHITE BLOOD COUNT 19.8 10^3/uL (4.0-10.0)
[2020-12-19 08:14] LABS: HEMATOCRIT 19.6 % (42.0-52.0); HEMOGLOBIN 6.2 g/dl (13.5-17.5)
[2020-12-19 08:28] LABS: ABG BASE EXCESS 3.5 (-2.0-2.0); ABG HCO3 28.2 MEQ/L (22.0-26.0); ABG O2 SATURATION 92.6 % (95.0-99.0); ABG PARTIAL PRESSURE CO2 43.8 mmHg (35.0-45.0); ABG PARTIAL PRESSURE O2 73.7 mmHg (75.0-100.0); ABG STANDARD HCO3 27.6 MEQ/L (22.0-26.0); ABG TOTAL CO2 29.6 MEQ/L (23.0-31.0); ABG pH (ARTERIAL) 7.427 UNITS (7.350-7.450)
[2020-12-19] MEDS: guaiFENesin ER 600 MG TAB PO SCH ×2 (08:28→20:19)
[2020-12-19] MEDS: amLODIPine 5 MG TAB PO SCH (08:28)
[2020-12-19 09:00] LABS: BASO % 0.2 % (0.0-1.0); LYMPH # 1.5 10^3/uL (1.5-5.0); LYMPH % 7.8 % (24.0-44.0); MEAN CORPUSCULAR HEMOGLOBIN 31.6 pg (27.0-33.0); MEAN CORPUSCULAR VOLUME 95.8 fl (80.0-96.0); MONO # 0.7 10^3/uL (0.0-0.8); MONO % 3.4 % (2.0-8.0); NEUTROPHILS # 16.2 10^3/uL (1.5-8.5); NEUTROPHILS % 85.7 % (36.0-66.0); PLATELET COUNT, AUTOMATED 371 10^3/uL (150-450); WHITE BLOOD COUNT 18.9 10^3/uL (4.0-10.0)
[2020-12-19 09:01] LABS: BLOOD UREA NITROGEN 87 MG/DL (7-18); CALCIUM LEVEL 7.8 MG/DL (8.8-10.2); CARBON DIOXIDE LEVEL 26 MEQ/L (21-32); CHLORIDE LEVEL 109 MEQ/L (98-107); CREATININE FOR GFR 1.11 MG/DL (0.70-1.30); GLOMERULAR FILTRATION RATE > 60.0 (>49); GLUCOSE, FASTING 292 MG/DL (70-100); MAGNESIUM LEVEL 2.6 MG/DL (1.8-2.4); POTASSIUM SERUM 6.1 MEQ/L (3.5-5.1); SODIUM LEVEL 143 MEQ/L (136-145)
[2020-12-19 09:11] LABS: HEMATOCRIT 18.2 % (42.0-52.0)
[2020-12-19 09:20] LABS: BLOOD UREA NITROGEN 91 MG/DL (7-18); CALCIUM LEVEL 7.5 MG/DL (8.8-10.2); CARBON DIOXIDE LEVEL 29 MEQ/L (21-32); CHLORIDE LEVEL 110 MEQ/L (98-107); CREATININE FOR GFR 1.13 MG/DL (0.70-1.30); GLOMERULAR FILTRATION RATE > 60.0 (>49); GLUCOSE, FASTING 264 MG/DL (70-100); MAGNESIUM LEVEL 2.5 MG/DL (1.8-2.4); POTASSIUM SERUM 5.1 MEQ/L (3.5-5.1); SODIUM LEVEL 146 MEQ/L (136-145)
--- NOTE | 2020-12-19 09:52 | REP ---
INDICATION: s/p Chest tube. COMPARISON: 12/19/2020 7:56 a.m. TECHNIQUE: AP view FINDINGS: Since the earlier exam today a left pleural catheter is been placed. There is approximately 50% we expansion of the left lung and shift of mediastinum to the midline. There is now patchy infiltrate in the right lower lobe of the lung. There is no evidence of pulmonary venous congestion. IMPRESSION: 50% re-expansion of the left lung with pleural catheter in place. Patchy infiltrate right lower lobe. <Electronically signed by Macario Armstrong > 12/19/20 0949
--- NOTE | 2020-12-19 09:55 | IPNPDOC ---
Text Note Date of Service The patient was seen on 12/19/20. NOTE Subjective: Patient is a 60-year-old male with PMHx Schizophrenia, who presented to the emergency room dropped off by his cousin is of shortness of breath. Upon arrival to emergency room, patient was found to have a left lower lobe pneumonia and was admitted to the hospitalist service for further evaluation and treatment. ABG had revealed significant respiratory acidosis and patient was placed in the ICU. Pulmonology was called on consultation for noninvasive ventilation. Patient was seen and examined at the bedside. Patient again had BiPAP on this morning was discontinued. Patient denied any nausea, vomiting, chest pain, palpitations or any significant shortness of breath. Denies any abdominal pain, diarrhea, or urinary discomfort. Objective: Vitals (See below) General: Lying in bed, appears comfortable, AAOx3 HEENT: NC, AT, BIPAP mask in place CVS: +S1S2 Lungs: Diminished lung sounds at entire left lung field, mild wheezing at right lung field. No evidence of rhonchi or crackles Abdomen: Soft, nondistended and nontender Extremities: Lower extremities are without edema Imaging: CT chest 12/13: 1. Dense lung field opacification as described above. Pneumonia is suspected. Malignancy cannot be ruled out. 2. There is adenopathy as described above. 3. Left pleural effusion. 4. Other findings and exam limitations as described above. CT abdomen / pelvis 12/13: 1. Lung base findings as described above. 2. Limited examination showing no evidence of acute intra-abdominal or intrapelvic disease with findings as described above. ECHO 12/13: 1. Normal global left ventricular systolic function. Assessment of the left v entricular diastolic function appeared to be normal. 2. Aortic valve sclerosis without stenosis or aortic regurgitation. 3. Mitral annulus calcification with trace mitral regurgitation. 4. Trace pericardial effusion. Renal US 12/15: No acute sonographic abnormality in the visualized kidneys and upper collecting systems. CXR 12/17: Evidence of improvement and technically related findings as described above. Follow-up is suggested. Assessment and plan: Acute respiratory failure with hypoxia and hypercapnia - Will repeat ABG this morning - c/w chest PT / Acapella / Incentive spirometry / Mucinex - c/w inhaled therapy as ordered - Will get CXR - Will hold BIPAP after ABG Sepsis - possibly 2/2 viral pneumonia with superimposed bacterial pneumonia - Leukocytosis persists; will trend CRP - Blood cultures 12/12: No growth at 5 days - Respiratory panel 12/12: Human rhinovirus/enterovirus - c/w Azithromycin and Zosyn (Day #8); s/p Vancomycin Atrial fibrillation - Patient currently is rate controlled - Throid function noted - ECHO noted above - c/w rate control with Diltiazem - c/w full anticoagulation with Lovenox therapeutic Normocytic anemia - Hg has trended down significantly - Will check iron panel / b12 / folate / hemolysis workup / reticulocyte count - Will check stool for occult blood - Will likely consent for blood transfusion s/p Abdominal pain s/p KEHINDE Schizophrenia - s/p Olanzapine during hospital course - Currently not requiring any further intervention - Will have outpatient follow up with Psychiatry DVT prophylaxis - c/w full anticoagulation with therapeutic Lovenox Disposition: - Awaiting clinical improvement VS,Fishbone, I+O VS, Fishbone, I+O Laboratory Tests 12/19/20 07:51 12/19/20 08:46 Vital Signs Date Time Temp Pulse Resp B/P (MAP) Pulse Ox O2 Delivery O2 Flow Rate FiO2 12/19/20 08:28 90 158/71 12/19/20 08:27 92 Nasal Cannula 8.0 12/19/20 08:00 40 12/19/20 07:45 43 12/19/20 04:00 97.6 I&O- Last 24 Hours up to 6 AM 12/19/20 06:00 Intake Total 2185 ml Output Total 650 ml Balance 1535 ml TEO WANG MD Dec 19, 2020 09:55
--- NOTE | 2020-12-19 10:11 | IPNPDOC ---
Subjective Date Seen The patient was seen on 12/19/20. Subjective Chief Complaint/HPI Patient is experiencing more shortness of breath this morning. He denies of fever, chills,. He admits to being tired and fatigued. General: Reports: ROS Unobtainable (Patient is extremely lethargic and sleepy this morning.) Objective Physical Examination General Exam: Positive: Alert, Cooperative, No Acute Distress, Mild Distress Eye Exam: Negative: Sclera icteric ENT Exam: Positive: Atraumatic Neck Exam: Positive: Supple; Negative: JVD Chest Exam: Positive: Rales (Coarse crackle of the right lower lung field.), Diminished (Diminished breath sounds at the left side.); Negative: Wheezing Heart Exam: Positive: Rate Normal, Regular Rhythm Abdomen Exam: Positive: Normal bowel sounds, Soft; Negative: Tenderness Extremity Exam: Negative: Clubbing, Edema Neuro Exam: Positive: Normal Speech Assessment /Plan Assessment This is a 60 yo gentleman with history of schizophrenia admitted to the hospital with multi-lobar PNA and hypoxic and hypercapnic respiratory failure. 1. Hypoxic and hypercapnic respiratory failure 2. Multi-lobar bacterial PNA involving the entire left lung field with superimposed viral/rhinovirus PNA 3. Left-sided tension pneumothorax 4. COPD exacerbation 5. Acute blood loss anemia Plan/VTE VTE Prophylaxis Ordered?: Yes Plan 1. Continue with current antibiotic regimes (zosyn). He is slowly improving from pneumonia standpoint. I suspect he is progressing to necrotizing pneumonia as he developed spontaneous pneumothorax on the left side. 2. Recommend tapering methylprednisolone to 80 mg every 12 hour. 3. Hold off further BiPAP therapy as there is no evidence of wheezing. 4. Left-sided chest tube connected to -20 cm of water suction. Recommend obtaining CT scan of the chest to evaluate the anatomy of the lung as I suspect patient is developing necrotizing pneumonia. 5. Transfusion to keep hemoglobin above 7. Recommend obtaining CT scan of the abdomen and pelvis to evaluate for retroperitoneal hemorrhage. 6. Recommend to hold off Lovenox therapy. Disposition Continue ICU care. VS, I&O, 24H, Fishbone Vital Signs/I&O Vital Signs Date Time Temp Pulse Resp B/P (MAP) Pulse Ox O2 Delivery O2 Flow Rate FiO2 12/19/20 08:28 90 158/71 12/19/20 08:27 92 Nasal Cannula 8.0 12/19/20 08:00 40 12/19/20 07:45 43 12/19/20 04:00 97.6 I&O- Last 24 Hours up to 6 AM 12/19/20 06:00 Intake Total 2185 ml Output Total 650 ml Balance 1535 ml Laboratory Data 24H LABS Laboratory Tests 2 12/19/20 07:51: Immature Granulocyte % (Auto) 2.9, Neutrophils (%) (Auto) 82.6H, Lymphocytes (%) (Auto) 11.7L, Monocytes (%) (Auto) 2.7, Eosinophils (%) (Auto) 0.0, Basophils (%) (Auto) 0.1, Neutrophils # (Auto) 16.4H, Lymphocytes # (Auto) 2.3, Monocytes # (Auto) 0.5, Eosinophils # (Auto) 0.0, Basophils # (Auto) 0.0, Nucleated Red Blood Cells % (auto) 0.0, Anion Gap 8, Glomerular Filtration Rate > 60.0, Calcium Level 7.8L, Magnesium Level 2.6H 12/19/20 08:17: Blood Gas Bicarbonate Standard 27.6H, Arterial Blood pH 7.427, Arterial Blood Partial Pressure CO2 43.8, Arterial Blood Partial Pressure O2 73.7L, Arterial Blood Total CO2 29.6, Arterial Blood HCO3 28.2H, Arterial Blood Base Excess 3.5H, Arterial Blood Oxygen Saturation 92.6L 12/19/20 08:46: Immature Granulocyte % (Auto) 2.9, Neutrophils (%) (Auto) 85.7H, Lymphocytes (%) (Auto) 7.8L, Monocytes (%) (Auto) 3.4, Eosinophils (%) (Auto) 0.0, Basophils (%) (Auto) 0.2, Neutrophils # (Auto) 16.2H, Lymphocytes # (Auto) 1.5, Monocytes # (Auto) 0.7, Eosinophils # (Auto) 0.0, Basophils # (Auto) 0.0, Nucleated Red Blood Cells % (auto) 0.0, Anion Gap 7L, Glomerular Filtration Rate > 60.0, Calcium Level 7.5L, Magnesium Level 2.5H CBC/BMP Laboratory Tests 12/19/20 07:51 12/19/20 08:46 Microbiology Microbiology 12/12/20 Blood Culture - Final, Complete NO GROWTH AFTER 5 DAYS 12/12/20 Urine Culture - Final, Complete 12/12/20 Respiratory Virus Panel (PCR) (TAE) - Final, Complete Human Rhinovirus/Enterovirus 12/12/20 Blood Culture - Final, Complete NO GROWTH AFTER 5 DAYS LEATHA SOSA MD Dec 19, 2020 10:11
--- NOTE | 2020-12-19 10:17 | ROOPDOC ---
[facility] Report Of Operation Report of Operation DATE OF PROCEDURE: 12/19/20 PROCEDURE PERFORMED: Left-sided chest tube. PREPROCEDURE DIAGNOSES: Left-sided tension pneumothorax. POSTPROCEDURE DIAGNOSES: Left-sided tension pneumothorax. PROCEDURE PERFORMED: Left-sided chest tube. SURGEON: Dr. Merlin MD Consent obtained: From patient with risk and benefit explained. Patient signed the consent form. ANESTHESIA: Local anesthesia with 1% lidocaine. ESTIMATED BLOOD LOSS: Approximately 1 mL. COMPLICATIONS: None. PROCEDURE NOTE: After consent was obtained and signed by the patient with risks and benefits explained, timeout was performed identifying patient, procedure performed and the site of the procedure which is left side. Patient was draped into sterile field. His left midclavicular line second intercostal space was marked. The area was anesthetized with 1% lidocaine. Introducer needle was used to puncture into the left pleural cavity until air bubble was aspirated into the syringe. Guidewire was advanced into the introducer needle using Seldinger technique. The area was dilated and 13 Cymraes soft catheter was inserted into the pleural cavity. The catheter was connected to the Pleur-evac that is set up to -20 cm of water suction power. Air was aspirated from the left pleural cavity into the Pleur-evac. Air bubble was appreciated in the waterseal chamber. The catheter was sutured in place and sterile dressing was applied. Patient tolerated the procedure without any complication. Postprocedure chest x-ray shows 50% resolution of the tension pneumothorax. We will continue with -20 cm water suction until complete resolution of the pneumothorax. LEATHA SOSA MD Dec 19, 2020 10:17
[2020-12-19 10:27] LABS: C REACTIVE PROTEIN QUANTITATIV 0.75 MG/DL (0.00-0.30)
[2020-12-19 10:34] LABS: FERRITIN 774 NG/ML (26-388); FOLATE 9.9 NG/ML (>5.4); IRON (FE) 187 UG/DL (65-175); LDH LACTATE DEHYDROGENASE 316 U/L (87-241); TOTAL IRON BINDING CAPACITY 215 UG/DL (250-450); VITAMIN B12 LEVEL 727 PG/ML (247-911)
[2020-12-19] MEDS: AZITHROMYCIN INJ 500 MG, VIAL MATE ADAPTER 1 EACH in NS 250 ML IV SCH (11:30)
--- NOTE | 2020-12-19 11:34 | REP ---
INDICATION: Pneumothorax s/p Chest tube. COMPARISON: Chest CT dated 12/13/2020. TECHNIQUE: Chest CT without IV contrast. FINDINGS: There is a left thoracotomy tube as an interval change. There is a left pneumothorax over the apex of the left lung as well as sub pulmonic. The pneumothorax has significantly decreased in size from the portable plain film study performed earlier today. There is subcutaneous emphysema along the left anterior and left lateral chest phillips. The large infiltrate involving the left upper lobe including the lingula and left lower lobe has decreased in size. There is now a patchy infiltrate involving the right upper lobe predominantly posteriorly. No mediastinal adenopathy is identified. In the absence of IV contrast the study is insensitive for hilar adenopathy. The unenhanced thoracic aorta is unremarkable. Cardiac size is normal. There is no pericardial effusion. The visualized upper abdomen demonstrates wall thickening in the colonic splenic flexure, nonspecific, but could represent infectious versus inflammatory colitis. There is a small left pleural effusion. There is no right pleural effusion. IMPRESSION: There is a left thoracotomy tube. The left pneumothorax has significantly decreased in size from the plain film study earlier today. There is subcutaneous emphysema along the left anterior and left lateral chest phillips. The large left lung infiltrate on the comparison CT has decreased in size. There is a new patchy infiltrate in the right upper lobe posteriorly. Small left pleural effusion. Wall thickening of the colonic splenic flexure, nonspecific, but could possibly represent inflammatory versus infectious colitis in the appropriate clinical setting. <Electronically signed by Weston Church > 12/19/20 [id number]
--- NOTE | 2020-12-19 11:50 | REP ---
INDICATION: Anemia. COMPARISON: Abdomen/pelvis CT dated 12/13/2020. TECHNIQUE: Abdomen/pelvis CT without IV or bowel contrast. FINDINGS: Please refer to the chest CT this same date for findings in the lower lung adams. There is wall thickening of the colonic splenic flexure, descending colon, sigmoid colon and rectosigmoid colon as an interval change. This is nonspecific but could represent infectious versus inflammatory colitis in the appropriate clinical setting. There is no pneumoperitoneum. There is no ascites. Some of the mid small bowel loops are mildly dilated but fluid-filled with no air-fluid levels. This may represent ileus. The unenhanced hepatic parenchyma, gallbladder, pancreas and spleen are unremarkable. The adrenals and kidneys are unremarkable. Abdominal aorta is unremarkable. There is no periaortic hematoma, adenopathy or mass. There is occasional calcified aortic atheroma. Pelvis: The bladder is unremarkable. There is no ascites or adenopathy. There is an ovoid 3.4 cm soft tissue density distally in the right inguinal canal and a 3.6 cm ovoid soft tissue density distally in the left inguinal canal, possibly non descended testes or possibly bilateral hydroceles.. IMPRESSION: There is no ascites or pneumoperitoneum. Wall thickening of the descending colon and sigmoid colon, nonspecific but compatible with infectious versus inflammatory colitis in the appropriate clinical setting. No mass or adenopathy. Some of the mid small bowel loops are mildly dilated but fluid filled with no air-fluid levels, possibly ileus. Ovoid soft tissue density in each inguinal canal distally, possibly none descended testes versus hydroceles. <Electronically signed by Weston Church > 12/19/20 [id number]
[2020-12-19] MEDS: MORPHINE 2 MG/ML 1ML VIAL (J2270) IV PRN ×2 (17:15→20:21)
[2020-12-19] MEDS: RAMELTEON 8 MG TAB (ROZEREM) PO SCH (20:18)
[2020-12-19] MEDS ORDERED: MORPHINE 2 MG/ML 1ML VIAL (J2270) IV ONE (22:15)
[2020-12-20] VITALS (39 sets, daily range): BP systolic 101–143; BP diastolic 51–75
[2020-12-20] MEDS ORDERED: MORPHINE 2 MG/ML 1ML VIAL (J2270) IV PRN (01:00)
[2020-12-20] MEDS: IPRATROPIUM 0.5MG/ALBUTEROL 2.5MG INH SOL UD 3ML (DUONEB) NEB SCH ×6 (03:06→23:20)
[2020-12-20] MEDS: methylPREDNISolone 125MG 2ML VIAL IV SCH ×3 (03:55→20:05)
[2020-12-20] MEDS: PIPERACILLIN/TAZOBACTAM SOD 3.375 GM in D5W MINI-BAG PLUS 50 ML IV SCH ×4 (03:55→22:03)
[2020-12-20] MEDS: **hydrALAZINE HCL** 25 MG TAB PO SCH ×3 (05:02→22:03)
[2020-12-20 05:13] LABS: BASO # 0.1 10^3/uL (0.0-0.2); BASO % 0.2 % (0.0-1.0); HEMATOCRIT 23.9 % (42.0-52.0); HEMOGLOBIN 8.1 g/dl (13.5-17.5); LYMPH # 1.8 10^3/uL (1.5-5.0); LYMPH % 4.7 % (24.0-44.0); MEAN CORPUSCULAR HEMOGLOBIN 30.9 pg (27.0-33.0); MEAN CORPUSCULAR HGB CONC 33.9 g/dl (32.0-36.5); MEAN CORPUSCULAR VOLUME 91.2 fl (80.0-96.0); MONO # 1.6 10^3/uL (0.0-0.8); MONO % 4.2 % (2.0-8.0); NEUTROPHILS # 33.6 10^3/uL (1.5-8.5); NEUTROPHILS % 88.6 % (36.0-66.0); PLATELET COUNT, AUTOMATED 343 10^3/uL (150-450); RED BLOOD COUNT 2.62 10^6/uL (4.30-6.10)
[2020-12-20 05:17] LABS: WHITE BLOOD COUNT 37.9 10^3/uL (4.0-10.0)
[2020-12-20 05:35] LABS: C REACTIVE PROTEIN QUANTITATIV 0.99 MG/DL (0.00-0.30); CALCIUM LEVEL 7.1 MG/DL (8.8-10.2); CREATININE FOR GFR 1.42 MG/DL (0.70-1.30); GLOMERULAR FILTRATION RATE 54.1 (>49); MAGNESIUM LEVEL 2.2 MG/DL (1.8-2.4); POTASSIUM SERUM 4.7 MEQ/L (3.5-5.1)
[2020-12-20] MEDS: NS 1,000 ML IV SCH ×2 (07:07→22:02)
[2020-12-20] MEDS: guaiFENesin ER 600 MG TAB PO SCH ×2 (08:56→20:04)
[2020-12-20] MEDS: amLODIPine 5 MG TAB PO SCH (08:57)
[2020-12-20] MEDS: PANTOPRAZOLE 40MG VIAL (C9113 PER 1) IV SCH ×2 (08:57→20:05)
[2020-12-20 09:47] LABS: ALBUMIN 1.7 GM/DL (3.2-5.2); BILIRUBIN,DIRECT 0.1 MG/DL (0.0-0.2); BILIRUBIN,TOTAL 0.3 MG/DL (0.2-1.0)
--- NOTE | 2020-12-20 10:40 | IPNPDOC ---
Subjective Date Seen The patient was seen on 12/20/20. Subjective Chief Complaint/HPI Patient complains of cough but denies shortness of breath, chest pain, fever, chills. General: Reports: Fatigue; Denies: Chills Constitutional: Denies: Fever ENT: Denies: Sore Throat Skin: Denies: Rash Pulmonary: Reports: Cough; Denies: Dyspnea Cardiovascular: Denies: Chest Pain, Palpitations, Orthopnea Gastrointestinal: Denies: Nausea, Vomiting, Abdominal Pain, Diarrhea Neurological: Denies: Weakness Objective Physical Examination General Exam: Positive: Alert, Cooperative, No Acute Distress, Mild Distress Eye Exam: Negative: Sclera icteric ENT Exam: Positive: Atraumatic Neck Exam: Positive: Supple; Negative: JVD Chest Exam: Positive: Rales (Coarse crackle of the right lower lung field.), Rhonchi (Rhonchi of the left lung field), Wheezing Heart Exam: Positive: Rate Normal, Regular Rhythm Abdomen Exam: Positive: Normal bowel sounds, Soft; Negative: Tenderness Extremity Exam: Negative: Clubbing, Edema Neuro Exam: Positive: Normal Speech Assessment /Plan Assessment This is a 60 yo gentleman with history of schizophrenia admitted to the hospital with multi-lobar PNA and hypoxic and hypercapnic respiratory failure. 1. Hypoxic and hypercapnic respiratory failure 2. Multi-lobar bacterial PNA involving the entire left lung field with superimposed viral/rhinovirus PNA 3. Left-sided tension pneumothorax s/p chest tube decompression 4. COPD exacerbation 5. Acute blood loss anemia Plan/VTE VTE Prophylaxis Ordered?: Yes Plan 1. Continue with current antibiotic regimes (zosyn). He is slowly improving from pneumonia standpoint. I suspect he is progressing to necrotizing pneumonia as he developed spontaneous pneumothorax on the left side. 2. Recommend tapering methylprednisolone to 80 mg every 12 hour. 3. Unclear etiology of leukocytosis as he is clinically improving. It could be leukemoid reaction. Procalcitonin level ordered to check for adequate antibiotic coverage. We may have to escalate more broad-spectrum antibiotic coverage 4. Left-sided chest tube connected to -20 cm of water suction. He still had persistent air leak in the chest tube. We will continue with -20 cm water suction. 5. Transfusion to keep hemoglobin above 7. CT abdomen and pelvis without any evidence of acute intra-abdominal pathology. Unclear for why he has acute blood loss anemia. Questionable hemolysis. Liver function test, right bilirubin, haptoglobin, LDH has been ordered. 6. Hold off further starting any anticoagulation therapy for his A. fib. Disposition Continue ICU care VS, I&O, 24H, Prudencio Vital Signs/I&O Vital Signs Date Time Temp Pulse Resp B/P (MAP) Pulse Ox O2 Delivery O2 Flow Rate FiO2 12/20/20 10:00 74 120/58 (78) 99 High Flow Cannula 3.0 12/20/20 09:50 96.8 20 12/19/20 12:00 40 I&O- Last 24 Hours up to 6 AM 12/20/20 06:00 Intake Total 3311 ml Output Total 2503 ml Balance 808 ml Laboratory Data 24H LABS Laboratory Tests 2 12/20/20 04:54: Immature Granulocyte % (Auto) 2.3, Neutrophils (%) (Auto) 88.6H, Lymphocytes (%) (Auto) 4.7L, Monocytes (%) (Auto) 4.2, Eosinophils (%) (Auto) 0.0, Basophils (%) (Auto) 0.2, Neutrophils # (Auto) 33.6H, Lymphocytes # (Auto) 1.8, Monocytes # (Auto) 1.6H, Eosinophils # (Auto) 0.0, Basophils # (Auto) 0.1, Nucleated Red Blood Cells % (auto) 0.1H, Anion Gap 4L, Glomerular Filtration Rate 54.1, Calcium Level 7.1L, Magnesium Level 2.2, C-Reactive Protein, Quantitative 0.99H 12/20/20 08:29: Total Bilirubin 0.3, Direct Bilirubin 0.1, Aspartate Amino Transf (AST/SGOT) 21, Alanine Aminotransferase (ALT/SGPT) 46, Alkaline Phosphatase 41L, Lactate Dehyd rogenase 270H, Total Protein 4.0L, Albumin 1.7L, Albumin/Globulin Ratio 0.7 CBC/BMP Laboratory Tests 12/20/20 04:54 Microbiology Microbiology 12/19/20 Stool Occult Blood (TAE) - Final, Complete 12/12/20 Blood Culture - Final, Complete NO GROWTH AFTER 5 DAYS 12/12/20 Urine Culture - Final, Complete 12/12/20 Respiratory Virus Panel (PCR) (TAE) - Final, Complete Human Rhinovirus/Enterovirus 12/12/20 Blood Culture - Final, Complete NO GROWTH AFTER 5 DAYS LEATHA SOSA MD Dec 20, 2020 10:40
--- NOTE | 2020-12-20 11:50 | IPNPDOC ---
Text Note Date of Service The patient was seen on 12/20/20. NOTE Subjective: Patient is a 60-year-old male with PMHx Schizophrenia, who presented to the emergency room dropped off by his cousin is of shortness of breath. Upon arrival to emergency room, patient was found to have a left lower lobe pneumonia and was admitted to the hospitalist service for further evaluation and treatment. ABG had revealed significant respiratory acidosis and patient was placed in the ICU. Pulmonology was called on consultation for noninvasive ventilation. Patient was seen and examined at the bedside. Currently reports that he is feeling relatively fine. Denies any nausea, vomiting, pain. Reports that he has been having diarrhea with what was reported as green colored stool. Denies any urinary discomfort. Denies any chest pain, shortness of breath or palpitations. Objective: Vitals (See below) General: Patient is laying in bed, appears to be comfortable, is awake and alert, oriented 3 HEENT: Normocephalic and atraumatic CVS: +S1S2 Lungs: Improved aeration at left lung field rhonchi appreciated diffusely on left side. Mild wheezing on right side. No crackles Abdomen: Remains soft, nondistended and nontender Extremities: Lower extremities are without any significant edema Imaging: CT chest 12/13: 1. Dense lung field opacification as described above. Pneumonia is suspected. Malignancy cannot be ruled out. 2. There is adenopathy as described above. 3. Left pleural effusion. 4. Other findings and exam limitations as described above. CT abdomen / pelvis 12/13: 1. Lung base findings as described above. 2. Limited examination showing no evidence of acute intra-abdominal or intrapelvic disease with findings as described above. ECHO 12/13: 1. Normal global left ventricular systolic function. Assessment of the left ventricular diastolic function appeared to be normal. 2. Aortic valve sclerosis without stenosis or aortic regurgitation. 3. Mitral annulus calcification with trace mitral regurgitation. 4. Trace pericardial effusion. Renal US 12/15: No acute sonographic abnormality in the visualized kidneys and upper collecting systems. CXR 12/17: Evidence of improvement and technically related findings as described above. Follow-up is suggested. CXR 12/19: 100% left pneumothorax with minimal associated tension. CXR 12/19: 50% re-expansion of the left lung with pleural catheter in place. Patchy infiltrate right lower lobe. CT chest 12/19: There is a left thoracotomy tube. The left pneumothorax has significantly decreased in size from the plain film study earlier today. There is subcutaneous emphysema along the left anterior and left lateral chest phillips. The large left lung infiltrate on the comparison CT has decreased in size. There is a new patchy infiltrate in the right upper lobe posteriorly. Small left pleural effusion. Wall thickening of the colonic splenic flexure, nonspecific, but could possibly represent inflammatory versus infectious colitis in the appropriate clinical setting. CT abdomen / pelvis 12/19: There is no ascites or pneumoperitoneum. Wall thickening of the descending colon and sigmoid colon, nonspecific but compatible with infectious versus inflammatory colitis in the appropriate clinical setting. No mass or adenopathy. Some of the mid small bowel loops are mildly dilated but fluid filled with no air-fluid levels, possibly ileus. Ovoid soft tissue density in each inguinal canal distally, possibly none descended testes versus hydroceles. Assessment and plan: Acute respiratory failure with hypoxia and hypercapnia - likely 2/2 multifactorial etiology - Hypoxia improving - c/w chest PT / Acapella / Incentive spirometry / Mucinex - c/w inhaled therapy as ordered - s/p BIPAP Sepsis - possibly 2/2 viral pneumonia with superimposed bacterial pneumonia - Leukocytosis worsened; CRP slightly elevated this morning - Will repeat PCT; had been trending down prior - Blood cultures 12/12: No growth at 5 days - Respiratory panel 12/12: Human rhinovirus/enterovirus - c/w Zosyn (Day #8); s/p Vancomycin and Azithromycin Left sided tension pneumothorax - s/p Chest tube placement on 12/19/2020 - Currently set to suction - Pulmonology on consultation; appreciate their input Leukocytosis - possibly 2/2 infectious etiology - Will check peripheral smear Atrial fibrillation - Patient currently is rate controlled - Throid function noted - ECHO noted above - c/w rate control with Diltiazem - Full anticoagulation with Lovenox on hold Normocytic anemia - Hg has trended down significantly - Iron panel / b12 / folate / hemolysis workup noted - Will check Direct Maury test - Reticulocyte index low - suggesting hyperproliferation - Stool for occult blood positive - s/p 2units PRBC - Will transfuse additional 2 units PRBC Occult positive - Will start Protonix / Carafate s/p Abdominal pain KEHINDE - likely 2/2 pre-renal etiology 2/2 low Hg - Will start IV fluid hydration and provide 2 units PRBC Schizophrenia - s/p Olanzapine during hospital course - Currently not requiring any further intervention - Will have outpatient follow up with Psychiatry DVT prophylaxis - Will start TEDs/Sequentials - s/p therapeutic Lovenox Disposition: - Awaiting clinical improvement VS,Adryanbone, I+O VS, Adryanbone, I+O Laboratory Tests 12/20/20 04:54 Vital Signs Date Time Temp Pulse Resp B/P (MAP) Pulse Ox O2 Delivery O2 Flow Rate FiO2 12/20/20 10:00 74 120/58 (78) 99 High Flow Cannula 3.0 12/20/20 09:50 96.8 20 12/19/20 12:00 40 I&O- Last 24 Hours up to 6 AM 12/20/20 06:00 Intake Total 3311 ml Output Total 2503 ml Balance 808 ml TEO WANG MD Dec 20, 2020 11:49
[2020-12-20] MEDS: SUCRALFATE SUSP 1GM/10ML UD PO SCH ×3 (12:32→22:03)
[2020-12-20 18:17] LABS: HEMATOCRIT 30.3 % (42.0-52.0); MEAN CORPUSCULAR HEMOGLOBIN 29.8 pg (27.0-33.0); MEAN CORPUSCULAR HGB CONC 33.3 g/dl (32.0-36.5); MEAN CORPUSCULAR VOLUME 89.4 fl (80.0-96.0); PLATELET COUNT, AUTOMATED 309 10^3/uL (150-450); RED BLOOD COUNT 3.39 10^6/uL (4.30-6.10)
[2020-12-20 18:18] LABS: WHITE BLOOD COUNT 37.1 10^3/uL (4.0-10.0)
[2020-12-20 18:19] LABS: HEMOGLOBIN 10.1 g/dl (13.5-17.5)
[2020-12-20] MEDS: RAMELTEON 8 MG TAB (ROZEREM) PO SCH (20:05)
[2020-12-21] VITALS (11 sets, daily range): BP systolic 116–148; BP diastolic 51–65
[2020-12-21] MEDS: IPRATROPIUM 0.5MG/ALBUTEROL 2.5MG INH SOL UD 3ML (DUONEB) NEB SCH ×6 (03:22→23:13)
[2020-12-21] MEDS: methylPREDNISolone 125MG 2ML VIAL IV SCH ×2 (03:34→13:00)
[2020-12-21] MEDS: PIPERACILLIN/TAZOBACTAM SOD 3.375 GM in D5W MINI-BAG PLUS 50 ML IV SCH ×4 (03:35→21:30)
[2020-12-21 05:12] LABS: BASO # 0.1 10^3/uL (0.0-0.2); BASO % 0.2 % (0.0-1.0); HEMATOCRIT 28.7 % (42.0-52.0); HEMOGLOBIN 9.5 g/dl (13.5-17.5); LYMPH # 0.8 10^3/uL (1.5-5.0); LYMPH % 2.9 % (24.0-44.0); MEAN CORPUSCULAR HEMOGLOBIN 29.5 pg (27.0-33.0); MEAN CORPUSCULAR HGB CONC 33.1 g/dl (32.0-36.5); MEAN CORPUSCULAR VOLUME 89.1 fl (80.0-96.0); MONO # 0.5 10^3/uL (0.0-0.8); MONO % 1.7 % (2.0-8.0); NEUTROPHILS # 26.7 10^3/uL (1.5-8.5); NEUTROPHILS % 93.3 % (36.0-66.0); PLATELET COUNT, AUTOMATED 363 10^3/uL (150-450); RED BLOOD COUNT 3.22 10^6/uL (4.30-6.10); WHITE BLOOD COUNT 28.6 10^3/uL (4.0-10.0)
[2020-12-21 05:38] LABS: C REACTIVE PROTEIN QUANTITATIV 2.86 MG/DL (0.00-0.30); CREATININE FOR GFR 1.4 MG/DL (0.70-1.30); MAGNESIUM LEVEL 2.5 MG/DL (1.8-2.4); POTASSIUM SERUM 4.9 MEQ/L (3.5-5.1)
[2020-12-21] MEDS: SUCRALFATE SUSP 1GM/10ML UD PO SCH ×4 (06:32→20:24)
[2020-12-21] MEDS: **hydrALAZINE HCL** 25 MG TAB PO SCH ×3 (06:32→21:30)
[2020-12-21] MEDS: NS 1,000 ML IV SCH (07:50)
[2020-12-21] MEDS: PANTOPRAZOLE 40MG TAB (PROTONIX) PO SCH ×2 (08:26→20:24)
[2020-12-21] MEDS: amLODIPine 5 MG TAB PO SCH (08:27)
[2020-12-21] MEDS: guaiFENesin ER 600 MG TAB PO SCH ×2 (08:27→20:24)
--- NOTE | 2020-12-21 08:59 | IPNPDOC ---
Subjective Date Seen The patient was seen on 12/21/20. Subjective Chief Complaint/HPI He is feeling well. He admits to mild cough and shortness of breath. Otherwise he denies fever, chills, chest pain, palpitation, orthopnea, lower semiswelling. General: Denies: Chills, Fatigue Constitutional: Denies: Fever ENT: Denies: Sore Throat Skin: Denies: Rash Pulmonary: Reports: Dyspnea, Cough Cardiovascular: Denies: Chest Pain, Palpitations, Orthopnea, Edema Gastrointestinal: Denies: Nausea, Vomiting, Abdominal Pain, Diarrhea, Hematochezia Psych: Reports: Mood Normal Objective Physical Examination General Exam: Positive: Alert, Cooperative, No Acute Distress, Mild Distress Eye Exam: Negative: Sclera icteric ENT Exam: Positive: Atraumatic Neck Exam: Positive: Supple; Negative: JVD Chest Exam: Positive: Rales (Coarse crackle of the right lower lung field.), Rhonchi (Rhonchi of the left lung field), Wheezing Heart Exam: Positive: Rate Normal, Regular Rhythm Abdomen Exam: Positive: Normal bowel sounds, Soft; Negative: Tenderness Extremity Exam: Negative: Clubbing, Edema Neuro Exam: Positive: Normal Speech Assessment /Plan Assessment This is a 60 yo gentleman with history of schizophrenia admitted to the hospital with multi-lobar PNA and hypoxic and hypercapnic respiratory failure. 1. Hypoxic and hypercapnic respiratory failure 2. Multi-lobar bacterial PNA involving the entire left lung field with superimposed viral/rhinovirus PNA 3. Left-sided tension pneumothorax s/p chest tube decompression 4. COPD exacerbation 5. Acute blood loss anemia Plan/VTE VTE Prophylaxis Ordered?: Yes Plan 1. Continue with Zosyn. He is slowly improving from necrotizing pneumonia standpoint. 2. Recommend tapering methylprednisolone to 80 mg every 12 hour. 3. Left-sided chest tube connected to -20 cm of water suction. He still had persistent air leak in the chest tube. We will continue with -20 cm water suction. 4. He does not have any occult bleeding. I think we are relatively safe to restart him on anticoagulation for his atrial fibrillation with close clinical monitoring. VS, I&O, 24H, Fishbone Vital Signs/I&O Vital Signs Date Time Temp Pulse Resp B/P (MAP) Pulse Ox O2 Delivery O2 Flow Rate FiO2 12/21/20 08:27 75 124/57 12/21/20 07:00 97.5 24 94 Nasal Cannula 2.0 12/19/20 12:00 40 I&O- Last 24 Hours up to 6 AM 12/21/20 06:00 Intake Total 6480 ml Output Total 1050 ml Balance 5430 ml Laboratory Data 24H LABS Laboratory Tests 2 12/20/20 18:01: Nucleated Red Blood Cells % (auto) 0.1H 12/21/20 04:59: Nucleated Red Blood Cells % (auto) 0.1H, Immature Granulocyte % (Auto) 1.9, Neutrophils (%) (Auto) 93.3H, Lymphocytes (%) (Auto) 2.9L, Monocytes (%) (Auto) 1.7L, Eosinophils (%) (Auto) 0.0, Basophils (%) (Auto) 0.2, Neutrophils # (Auto) 26.7H, Lymphocytes # (Auto) 0.8L, Monocytes # (Auto) 0.5, Eosinophils # (Auto) 0.0, Basophils # (Auto) 0.1, Anion Gap 7L, Glomerular Filtration Rate 55.0, Calcium Level 7.0L, Magnesium Level 2.5H, C-Reactive Protein, Quantitative 2.86H CBC/BMP Laboratory Tests 12/20/20 18:01 12/21/20 04:59 Microbiology Microbiology 12/19/20 Stool Occult Blood (TAE) - Final, Complete 12/12/20 Blood Culture - Final, Complete NO GROWTH AFTER 5 DAYS 12/12/20 Urine Culture - Final, Complete 12/12/20 Respiratory Virus Panel (PCR) (TAE) - Final, Complete Human Rhinovirus/Enterovirus 12/12/20 Blood Culture - Final, Complete NO GROWTH AFTER 5 DAYS LEATHA SOSA MD Dec 21, 2020 08:59
--- NOTE | 2020-12-21 11:39 | IPNPDOC ---
Text Note Date of Service The patient was seen on 12/21/20. NOTE Subjective: Patient is a 60-year-old male with PMHx Schizophrenia, who presented to the emergency room dropped off by his cousin is of shortness of breath. Upon arrival to emergency room, patient was found to have a left lower lobe pneumonia and was admitted to the hospitalist service for further evaluation and treatment. ABG had revealed significant respiratory acidosis and patient was placed in the ICU. Pulmonology was called on consultation for noninvasive ventilation. Patient was seen and examined at the bedside. Currently patient was seen laying in bed, no acute distress. Denies any chest pain, shortness of breath, palpitations, nausea, vomiting, abdominal pain, still reports some loose stools described as green. No urinary discomfort. Objective: Vitals (See below) General: Laying in bed, no acute distress, comfortable, aaox3 HEENT: AT, NC CVS: +S1S2 Lungs: Improved aeration, no crackles / rhonchi appreciated, mild wheezing noted Abdomen: Abdomen remains soft, without distention / tenderness Extremities: LE are without any significant edema Imaging: CT chest 12/13: 1. Dense lung field opacification as described above. Pneumonia is suspected. Malignancy cannot be ruled out. 2. There is adenopathy as described above. 3. Left pleural effusion. 4. Other findings and exam limitations as described above. CT abdomen / pelvis 12/13: 1. Lung base findings as described above. 2. Limited examination showing no evidence of acute intra-abdominal or intrapelvic disease with findings as described above. ECHO 12/13: 1. Normal global left ventricular systolic function. Assessment of the left ventricular diastolic function appeared to be normal. 2. Aortic valve sclerosis without stenosis or aortic regurgitation. 3. Mitral annulus calcification with trace mitral regurgitation. 4. Trace pericardial effusion. Renal US 12/15: No acute sonographic abnormality in the visualized kidneys and upper collecting systems. CXR 12/17: Evidence of improvement and technically related findings as described above. Follow-up is suggested. CXR 12/19: 100% left pneumothorax with minimal associated tension. CXR 12/19: 50% re-expansion of the left lung with pleural catheter in place. Patchy infiltrate right lower lobe. CT chest 12/19: There is a left thoracotomy tube. The left pneumothorax has significantly decreased in size from the plain film study earlier today. There is subcutaneous emphysema along the left anterior and left lateral chest phillips. The large left lung infiltrate on the comparison CT has decreased in size. There is a new patchy infiltrate in the right upper lobe posteriorly. Small left pleural effusion. Wall thickening of the colonic splenic flexure, nonspecific, but could possibly represent inflammatory versus infectious colitis in the appropriate clinical setting. CT abdomen / pelvis 12/19: There is no ascites or pneumoperitoneum. Wall thickening of the descending colon and sigmoid colon, nonspecific but compatible with infectious versus inflammatory colitis in the appropriate clinical setting. No mass or adenopathy. Some of the mid small bowel loops are mildly dilated but fluid filled with no air-fluid levels, possibly ileus. Ovoid soft tissue density in each inguinal canal distally, possibly none descended testes versus hydroceles. Assessment and plan: Acute respiratory failure with hypoxia and hypercapnia - likely 2/2 multifactorial etiology - Hypoxia continues to improve; Stable at 2L NC oxygen - c/w chest PT / Acapella / Incentive spirometry / Mucinex - c/w inhaled therapy as ordered - s/p BIPAP Sepsis - possibly 2/2 viral pneumonia with superimposed bacterial pneumonia - Leukocytosis improving; slight increase in CRP - Will repeat PCT; had been trending down prior - Blood cultures 12/12: No growth at 5 days - Respiratory panel 12/12: Human rhinovirus/enterovirus - c/w Zosyn (Day #9); s/p Vancomycin and Azithromycin Left sided tension pneumothorax - s/p Chest tube placement on 12/19/2020 - Air leak still noted - Pulmonology on consultation; appreciate their input Leukocytosis - possibly 2/2 infectious etiology - Peripheral smear 12/20: Leukocytosis with shift to left and presence of a few immature myeloid cells. Normochromic normocytic anemia, new finding, can be further evaluated later if it persists after the acute disease process is resolved. Poikilocytosis is minimal. Platelet count is normal. The findings may be related to an ongoing infectious/acute inflammatory process or medication/steroids. Atrial fibrillation - Patient currently is rate controlled - Throid function noted - ECHO noted above - c/w rate control with Diltiazem - Full anticoagulation with Lovenox on hold Normocytic anemia - Hg has improved appropriately after transfusions - Iron panel / b12 / folate / hemolysis workup noted - Direct Maury test negative - Reticulocyte index low - suggesting hyperproliferation - Stool for occult blood positive - s/p 4 units PRBC Occult positive - c/w Protonix / Carafate s/p Abdominal pain KEHINDE - likely 2/2 pre-renal etiology 2/2 low Hg - Cr remains stable; although still elevated from baseline - Will check UA / Urine electrolytes - c/w IV fluid hydration Schizophrenia - s/p Olanzapine during hospital course - Currently not requiring any further intervention - Will have outpatient follow up with Psychiatry DVT prophylaxis - c/w TEDs/Sequentials - s/p therapeutic Lovenox Disposition: - Awaiting clinical improvement VS,Parame, I+O VS, Parame, I+O Laboratory Tests 12/20/20 18:01 12/21/20 04:59 Vital Signs Date Time Temp Pulse Resp B/P (MAP) Pulse Ox O2 Delivery O2 Flow Rate FiO2 12/21/20 08:27 75 124/57 12/21/20 08:00 2.0 12/21/20 07:00 97.5 24 94 Nasal Cannula 12/19/20 12:00 40 I&O- Last 24 Hours up to 6 AM 12/21/20 06:00 Intake Total 6480 ml Output Total 1050 ml Balance 5430 ml TEO WANG MD Dec 21, 2020 11:39
[2020-12-21 12:10] LABS: BODY FLUID CULTURE Not indicated. (.); LEGIONELLA ANTIGEN URINE Negative (Negative); ORGANISM ID Not indicated. (.); SPECIMEN SOURCE Urine (.); URINE STREP PNEUMONIAE ANTIGEN Negative (Negative)
[2020-12-21 13:13] LABS: OSMOLALITY URINE 585 MOSM/KG (50-1400)
[2020-12-21 13:43] LABS: CREATININE,RANDOM URINE 52.1 MG/DL; SODIUM,RANDOM URINE < 10 MEQ/L
[2020-12-21] MEDS: RAMELTEON 8 MG TAB (ROZEREM) PO SCH (20:24)
[2020-12-22] VITALS (7 sets, daily range): BP systolic 121–150; BP diastolic 56–76
[2020-12-22] MEDS ORDERED: methylPREDNISolone 40MG 1ML VIAL IV SCH
[2020-12-22] MEDS: IPRATROPIUM 0.5MG/ALBUTEROL 2.5MG INH SOL UD 3ML (DUONEB) NEB SCH ×6 (03:17→23:37)
[2020-12-22] MEDS: PIPERACILLIN/TAZOBACTAM SOD 3.375 GM in D5W MINI-BAG PLUS 50 ML IV SCH ×4 (03:59→21:55)
[2020-12-22] MEDS: **hydrALAZINE HCL** 25 MG TAB PO SCH ×3 (05:38→21:54)
[2020-12-22 06:35] LABS: BASO # 0.1 10^3/uL (0.0-0.2); BASO % 0.2 % (0.0-1.0); HEMATOCRIT 26.9 % (42.0-52.0); HEMOGLOBIN 8.8 g/dl (13.5-17.5); LYMPH # 0.6 10^3/uL (1.5-5.0); LYMPH % 1.8 % (24.0-44.0); MEAN CORPUSCULAR HEMOGLOBIN 29.7 pg (27.0-33.0); MEAN CORPUSCULAR HGB CONC 32.7 g/dl (32.0-36.5); MEAN CORPUSCULAR VOLUME 90.9 fl (80.0-96.0); MONO # 0.7 10^3/uL (0.0-0.8); MONO % 1.9 % (2.0-8.0); NEUTROPHILS % 94.8 % (36.0-66.0); PLATELET COUNT, AUTOMATED 446 10^3/uL (150-450); RED BLOOD COUNT 2.96 10^6/uL (4.30-6.10)
[2020-12-22 06:38] LABS: WHITE BLOOD COUNT 34.8 10^3/uL (4.0-10.0)
[2020-12-22 06:54] LABS: BLOOD UREA NITROGEN 79 MG/DL (7-18); C REACTIVE PROTEIN QUANTITATIV 1.37 MG/DL (0.00-0.30); CALCIUM LEVEL 6.9 MG/DL (8.8-10.2); CARBON DIOXIDE LEVEL 26 MEQ/L (21-32); CHLORIDE LEVEL 109 MEQ/L (98-107); CREATININE FOR GFR 1.28 MG/DL (0.70-1.30); GLOMERULAR FILTRATION RATE > 60.0 (>49); GLUCOSE, FASTING 206 MG/DL (70-100); MAGNESIUM LEVEL 2.3 MG/DL (1.8-2.4); POTASSIUM SERUM 4.9 MEQ/L (3.5-5.1); SODIUM LEVEL 139 MEQ/L (136-145)
[2020-12-22] MEDS: amLODIPine 5 MG TAB PO SCH (08:10)
[2020-12-22] MEDS: PANTOPRAZOLE 40MG TAB (PROTONIX) PO SCH (08:10)
[2020-12-22] MEDS: SUCRALFATE SUSP 1GM/10ML UD PO SCH ×4 (08:10→21:54)
[2020-12-22] MEDS: guaiFENesin ER 600 MG TAB PO SCH ×2 (08:10→21:54)
--- NOTE | 2020-12-22 08:43 | IPNPDOC ---
Subjective Date Seen The patient was seen on 12/22/20. Subjective Chief Complaint/HPI Patient is frustrated that he can't go home. He denies of fever, chills, shortness of breath, cough, wheezing, chest pain. General: Denies: Chills Constitutional: Denies: Fever ENT: Denies: Sore Throat Skin: Denies: Rash Pulmonary: Denies: Dyspnea, Cough Cardiovascular: Denies: Chest Pain, Palpitations, Orthopnea, Edema Gastrointestinal: Denies: Nausea, Abdominal Pain, Diarrhea Neurological: Denies: Weakness Objective Physical Examination General Exam: Positive: Alert, Cooperative, No Acute Distress Eye Exam: Negative: Sclera icteric ENT Exam: Positive: Atraumatic Neck Exam: Positive: Supple; Negative: JVD Chest Exam: Positive: Rales (Coarse crackle of the right lower lung field.), Rhonchi (Rhonchi of the left lung field), Wheezing, Other (air flow sound (from PTX)) Heart Exam: Positive: Rate Normal, Regular Rhythm Abdomen Exam: Positive: Normal bowel sounds, Soft; Negative: Tenderness Extremity Exam: Negative: Clubbing, Edema Neuro Exam: Positive: Normal Speech Psych Exam: Positive: Mental status NL, Oriented x 3 Assessment /Plan Assessment This is a 60 yo gentleman with history of schizophrenia admitted to the hospital with multi-lobar PNA and hypoxic and hypercapnic respiratory failure. 1. Hypoxic and hypercapnic respiratory failure 2. Multi-lobar bacterial PNA involving the entire left lung field with superimposed viral/rhinovirus PNA 3. Left-sided tension pneumothorax s/p chest tube decompression 4. COPD exacerbation 5. Acute blood loss anemia, ? GI Bleed Plan/VTE VTE Prophylaxis Ordered?: Yes Plan 1. Continue with Zosyn. He will need prolonged course of antibiotics. 2. Tapering methylprednisolone. 3. Left-sided chest tube connected to -20 cm of water suction. He still had persistent air leak in the chest tube. We will continue with -20 cm water suction. 4. GI consulted by primary due to progressive anemia and fecal occult test positive. Continue to hold anticoagulation for his A-fib. Disposition can be transferred out of ICU. VS, I&O, 24H, Fishbone Vital Signs/I&O Vital Signs Date Time Temp Pulse Resp B/P (MAP) Pulse Ox O2 Delivery O2 Flow Rate FiO2 12/22/20 08:10 69 148/60 12/22/20 04:00 2.0 12/22/20 04:00 97.4 16 96 Nasal Cannula 12/19/20 12:00 40 I&O- Last 24 Hours up to 6 AM 12/22/20 06:00 Intake Total 2630 ml Output Total 2170 ml Balance 460 ml Laboratory Data 24H LABS Laboratory Tests 2 12/21/20 13:02: Urine Color YELLOW, Urine Appearance HAZY, Urine pH 5.0, Urine Specific [employer] 1.014, Urine Protein NEGATIVE, Urine Glucose (UA) 3+H, Urine Ketones NEGATIVE, Urine Blood NEGATIVE, Urine Nitrite NEGATIVE, Urine Bilirubin NEGATIVE, Urine Urobilinogen 0.2, Urine Leukocyte Esterase NEGATIVE, Urine WBC (Auto) 2, Urine RBC (Auto) 1, Urine Hyaline Casts (Auto) 0, Urine Bacteria (Auto) 1+H, Urine Squamous Epithelial Cells 0, Urine Sperm (Auto) , Urine Osmolality 585, Urine Random Creatinine 52.1, Urine Random Sodium < 10 12/22/20 05:37: Immature Granulocyte % (Auto) 1.3, Neutrophils (%) (Auto) 94.8H, Lymphocytes (%) (Auto) 1.8L, Monocytes (%) (Auto) 1.9L, Eosinophils (%) (Auto) 0.0, Basophils (%) (Auto) 0.2, Neutrophils # (Auto) 33.0H, Lymphocytes # (Auto) 0.6L, Monocytes # (Auto) 0.7, Eosinophils # (Auto) 0.0, Basophils # (Auto) 0.1, Nucleated Red Blood Cells % (auto) 0.0, Anion Gap 4L, Glomerular Filtration Rate > 60.0, C alcium Level 6.9L, Magnesium Level 2.3, C-Reactive Protein, Quantitative 1.37H CBC/BMP Laboratory Tests 12/22/20 05:37 Microbiology Microbiology 12/19/20 Stool Occult Blood (TAE) - Final, Complete 12/12/20 Blood Culture - Final, Complete NO GROWTH AFTER 5 DAYS 12/12/20 Urine Culture - Final, Complete 12/12/20 Respiratory Virus Panel (PCR) (TAE) - Final, Complete Human Rhinovirus/Enterovirus 12/12/20 Blood Culture - Final, Complete NO GROWTH AFTER 5 DAYS LEATHA SOSA MD Dec 22, 2020 08:43
--- NOTE | 2020-12-22 10:59 | IPNPDOC ---
Text Note Date of Service The patient was seen on 12/22/20. NOTE Subjective: Patient is a 60-year-old male with PMHx Schizophrenia, who presented to the emergency room dropped off by his cousin is of shortness of breath. Upon arrival to emergency room, patient was found to have a left lower lobe pneumonia and was admitted to the hospitalist service for further evaluation and treatment. ABG had revealed significant respiratory acidosis and patient was placed in the ICU. Pulmonology was called on consultation for noninvasive ventilation. Patient was seen and examined at the bedside. Patient noted that he continues to experience diarrhea. Denies any N/V, abdominal pain. Denies any CP, SOB or palpitations. Reports a mild cough, without any significant expectoration Objective: Vitals (See below) General: Sitting up in bed, appears comfortable, awake / alert, oriented x3 HEENT: normocephalic and atraumatic CVS: +S1S2 Lungs: Aeration appears to be fair bilaterally, mild wheezing appreciated, faint rhonchi at left Abdomen: Again his abdomen remains soft, ND, NT Extremities: No edema Imaging: CT chest 12/13: 1. Dense lung field opacification as described above. Pneumonia is suspected. Malignancy cannot be ruled out. 2. There is adenopathy as described above. 3. Left pleural effusion. 4. Other findings and exam limitations as described above. CT abdomen / pelvis 12/13: 1. Lung base findings as described above. 2. Limited examination showing no evidence of acute intra-abdominal or intrapelvic disease with findings as described above. ECHO 12/13: 1. Normal global left ventricular systolic function. Assessment of the left ventricular diastolic function appeared to be normal. 2. Aortic valve sclerosis without stenosis or aortic regurgitation. 3. Mitral annulus calcification with trace mitral regurgitation. 4. Trace pericardial effusion. Renal US 12/15: No acute sonographic abnormality in the visualized kidneys and upper collecting systems. CXR 12/17: Evidence of improvement and technically related findings as described above. Follow-up is suggested. CXR 12/19: 100% left pneumothorax with minimal associated tension. CXR 12/19: 50% re-expansion of the left lung with pleural catheter in place. Patchy infiltrate right lower lobe. CT chest 12/19: There is a left thoracotomy tube. The left pneumothorax has significantly decreased in size from the plain film study earlier today. There is subcutaneous emphysema along the left anterior and left lateral chest phillips. The large left lung infiltrate on the comparison CT has decreased in size. There is a new patchy infiltrate in the right upper lobe posteriorly. Small left pleural effusion. Wall thickening of the colonic splenic flexure, nonspecific, but could possibly represent inflammatory versus infectious colitis in the appropriate clinical setting. CT abdomen / pelvis 12/19: There is no ascites or pneumoperitoneum. Wall thickening of the descending colon and sigmoid colon, nonspecific but compatible with infectious versus inflammatory colitis in the appropriate clinical setting. No mass or adenopathy. Some of the mid small bowel loops are mildly dilated but fluid filled with no air-fluid levels, possibly ileus. Ovoid soft tissue density in each inguinal canal distally, possibly none descended testes versus hydroceles. Assessment and plan: Acute respiratory failure with hypoxia and hypercapnia - likely 2/2 multifactorial etiology - Breathing has remained stable; currently on 2L NC oxygen - c/w chest PT / Acapella / Incentive spirometry / Mucinex - c/w inhaled therapy as ordered - s/p BIPAP Sepsis - possibly 2/2 viral pneumonia with superimposed bacterial pneumonia (possibly Atypical) - PCT improving - Blood cultures 12/12: No growth at 5 days - Respiratory panel 12/12: Human rhinovirus/enterovirus - c/w Zosyn (Day #10); s/p Vancomycin and Azithromycin Left sided tension pneumothorax - s/p Chest tube placement on 12/19/2020 - Air leak persists - Pulmonology on consultation; appreciate their input Leukocytosis - possibly 2/2 infectious etiology - Increase noted today / CRP improving - Peripheral smear 12/20: Leukocytosis with shift to left and presence of a few immature myeloid cells. Normochromic normocytic anemia, new finding, can be further evaluated later if it persists after the acute disease process is resolved. Poikilocytosis is minimal. Platelet count is normal. The findings may be related to an ongoing infectious/acute inflammatory process or medication/steroids. - Will check C diff PCR - c/w Antibiotics (Stated above) Atrial fibrillation - Patient currently is rate controlled - Throid function noted - ECHO noted above - c/w rate control with Diltiazem - Full anticoagulation with Lovenox on hold Normocytic anemia - Hg has had slight decline; possibly 2/2 IV fluid hydration - Iron panel / b12 / folate / hemolysis workup noted - Direct Maury test negative - Reticulocyte index remains low - suggesting hyperproliferation - Stool for occult blood positive - s/p 4 units PRBC - Consulted GI Occult positive / Diarrhea / Dark stools - Will change to Clear liquid diet - c/w Protonix / Carafate; changed to IV - Consulted GI s/p Abdominal pain KEHINDE - likely 2/2 pre-renal etiology 2/2 low Hg - Cr remains stable; although still elevated from baseline - UA negative; FENa 0.2% - s/p IV fluid hydration Schizophrenia - s/p Olanzapine during hospital course - Currently not requiring any further intervention - Will have outpatient follow up with Psychiatry DVT prophylaxis - c/w TEDs/Sequentials - s/p therapeutic Lovenox Disposition: - Awaiting clinical improvement VS,Prudencio, I+O VS, Prudencio, I+O Laboratory Tests 12/22/20 05:37 Vital Signs Date Time Temp Pulse Resp B/P (MAP) Pulse Ox O2 Delivery O2 Flow Rate FiO2 12/22/20 08:10 69 148/60 12/22/20 08:02 97.8 18 92 Nasal Cannula 2.0 12/19/20 12:00 40 I&O- Last 24 Hours up to 6 AM 12/22/20 06:00 Intake Total 2630 ml Output Total 2170 ml Balance 460 ml TEO WANG MD Dec 22, 2020 10:59
[2020-12-22] MEDS: methylPREDNISolone 40MG 1ML VIAL IV SCH (12:19)
[2020-12-22 12:23] LABS: CLOSTRIDIUM DIFFICILE PCR NEGATIVE (NEGATIVE)
[2020-12-22] MEDS: RAMELTEON 8 MG TAB (ROZEREM) PO SCH (21:54)
[2020-12-22] MEDS: PANTOPRAZOLE 40MG VIAL (C9113 PER 1) IV SCH (21:54)
[2020-12-23] VITALS (9 sets, daily range): BP systolic 99–145; BP diastolic 51–63
[2020-12-23] MEDS: methylPREDNISolone 40MG 1ML VIAL IV SCH ×2 (01:20→12:01)
[2020-12-23] MEDS: IPRATROPIUM 0.5MG/ALBUTEROL 2.5MG INH SOL UD 3ML (DUONEB) NEB SCH ×4 (04:29→20:00)
[2020-12-23] MEDS: PIPERACILLIN/TAZOBACTAM SOD 3.375 GM in D5W MINI-BAG PLUS 50 ML IV SCH (04:56)
[2020-12-23 05:22] LABS: BASO % 0.1 % (0.0-1.0); EOS # 0.3 10^3/uL (0.0-0.5); EOS % 1.1 % (0.0-3.0); HEMATOCRIT 25.9 % (42.0-52.0); HEMOGLOBIN 8.3 g/dl (13.5-17.5); LYMPH # 1.7 10^3/uL (1.5-5.0); LYMPH % 7.5 % (24.0-44.0); MEAN CORPUSCULAR HEMOGLOBIN 29.5 pg (27.0-33.0); MEAN CORPUSCULAR VOLUME 92.2 fl (80.0-96.0); MONO # 1.4 10^3/uL (0.0-0.8); MONO % 6.2 % (2.0-8.0); NEUTROPHILS # 19.1 10^3/uL (1.5-8.5); PLATELET COUNT, AUTOMATED 469 10^3/uL (150-450); RED BLOOD COUNT 2.81 10^6/uL (4.30-6.10); WHITE BLOOD COUNT 22.8 10^3/uL (4.0-10.0)
[2020-12-23 05:38] LABS: BLOOD UREA NITROGEN 45 MG/DL (7-18); C REACTIVE PROTEIN QUANTITATIV 1.61 MG/DL (0.00-0.30); CALCIUM LEVEL 7.1 MG/DL (8.8-10.2); CARBON DIOXIDE LEVEL 29 MEQ/L (21-32); CHLORIDE LEVEL 110 MEQ/L (98-107); CREATININE FOR GFR 0.91 MG/DL (0.70-1.30); GLOMERULAR FILTRATION RATE > 60.0 (>49); GLUCOSE, FASTING 104 MG/DL (70-100); MAGNESIUM LEVEL 2.2 MG/DL (1.8-2.4); POTASSIUM SERUM 4.7 MEQ/L (3.5-5.1); SODIUM LEVEL 141 MEQ/L (136-145)
[2020-12-23] MEDS: **hydrALAZINE HCL** 25 MG TAB PO SCH ×3 (06:33→20:53)
[2020-12-23] MEDS: SUCRALFATE SUSP 1GM/10ML UD PO SCH ×4 (07:30→20:52)
--- NOTE | 2020-12-23 09:01 | IPNPDOC ---
Subjective Date Seen The patient was seen on 12/23/20. Subjective Chief Complaint/HPI Denies of everything. He's sleeping comfortably. Denies fever, chills, shortness of breath, chest pain, cough. General: Denies: Chills, Fatigue Constitutional: Denies: Fever Skin: Denies: Rash Pulmonary: Denies: Dyspnea, Cough, Pleuritic Chest Pain Cardiovascular: Denies: Chest Pain, Palpitations, Orthopnea Gastrointestinal: Denies: Nausea, Diarrhea Neurological: Denies: Weakness Objective Physical Examination General Exam: Positive: Alert, Cooperative, No Acute Distress Eye Exam: Negative: Sclera icteric ENT Exam: Positive: Atraumatic Neck Exam: Positive: Supple; Negative: JVD Chest Exam: Positive: Rales (Coarse crackle of the right lower lung field.), Rhonchi (Rhonchi of the left lung field); Negative: Wheezing Heart Exam: Positive: Rate Normal, Regular Rhythm Abdomen Exam: Positive: Normal bowel sounds, Soft; Negative: Tenderness Extremity Exam: Negative: Clubbing, Edema Neuro Exam: Positive: Normal Speech Psych Exam: Positive: Mental status NL, Oriented x 3 Assessment /Plan Assessment This is a 60 yo gentleman with history of schizophrenia admitted to the hospital with multi-lobar PNA and hypoxic and hypercapnic respiratory failure. 1. Hypoxic and hypercapnic respiratory failure 2. Multi-lobar legionella PNA involving the entire left lung field with superimposed viral/rhinovirus PNA 3. Left-sided tension pneumothorax s/p chest tube decompression 4. Acute blood loss anemia, ? GI Bleed Plan/VTE VTE Prophylaxis Ordered?: Yes Plan 1. Switch zosyn to levaquin or azithromycin as zosyn don't cover for legionella. Public health may need to be notified. 2. Tapering methylprednisolone. 3. Left-sided chest tube connected to -20 cm of water suction. He still had persistent air leak in the chest tube. Ideally, I'd like to DC him home with atrium or heimlich valve but I don't think he's reliable person to self take c are the chest tube and have close clinic follow up. 4. GI consulted by primary due to progressive anemia and fecal occult test positive. Continue to hold anticoagulation for his A-fib. Disposition continue hospital care. VS, I&O, 24H, Fishbone Vital Signs/I&O Vital Signs Date Time Temp Pulse Resp B/P (MAP) Pulse Ox O2 Delivery O2 Flow Rate FiO2 12/23/20 08:00 98.4 109 17 127/61 (83) 94 Nasal Cannula 2.0 12/19/20 12:00 40 I&O- Last 24 Hours up to 6 AM 12/23/20 06:00 Intake Total 1630 ml Output Total 1829 ml Balance -199 ml Laboratory Data 24H LABS Laboratory Tests 2 12/22/20 11:14: Clostridium difficile [id number] PRESUMPTIVE NEGATIVE, Clostridium difficile Toxin (PCR) NEGATIVE 12/23/20 05:03: Immature Granulocyte % (Auto) 1.1, Neutrophils (%) (Auto) 84.0H, Lymphocytes (%) (Auto) 7.5L, Monocytes (%) (Auto) 6.2, Eosinophils (%) (Auto) 1.1, Basophils (%) (Auto) 0.1, Neutrophils # (Auto) 19.1H, Lymphocytes # (Auto) 1.7, Monocytes # (Auto) 1.4H, Eosinophils # (Auto) 0.3, Basophils # (Auto) 0.0, Nucleated Red Blood Cells % (auto) 0.0, Anion Gap 2L, Glomerular Filtration Rate > 60.0, Calcium Level 7.1L, Magnesium Level 2.2, C-Reactive Protein, Quantitative 1.61H CBC/BMP Laboratory Tests 12/23/20 05:03 Microbiology Microbiology 12/19/20 Stool Occult Blood (TAE) - Final, Complete LEATHA SOSA MD Dec 23, 2020 09:01
[2020-12-23] MEDS: PANTOPRAZOLE 40MG VIAL (C9113 PER 1) IV SCH ×2 (10:00→20:52)
[2020-12-23] MEDS: guaiFENesin ER 600 MG TAB PO SCH ×2 (10:00→20:52)
[2020-12-23] MEDS: amLODIPine 5 MG TAB PO SCH (10:00)
--- NOTE | 2020-12-23 10:07 | IPNPDOC ---
Text Note Date of Service The patient was seen on 12/23/20. NOTE Subjective: Patient is a 60-year-old male with PMHx Schizophrenia, who presented to the emergency room dropped off by his cousin is of shortness of breath. Upon arrival to emergency room, patient was found to have a left lower lobe pneumonia and was admitted to the hospitalist service for further evaluation and treatment. ABG had revealed significant respiratory acidosis and patient was placed in the ICU. Pulmonology was called on consultation for noninvasive ventilation. Patient was seen and examined at the bedside. Is sitting up in bed comfortably. Denies any chest pain or ports a mild cough without any significant expectoration. Denies any chest pain or palpitations. Has not experienced any nausea, vomiting, abdominal pain, still reports dark diarrhea. Denies any urinary discomfort. Objective: Vitals (See below) General: Patient is sitting up in bed and appears to be comfortable without any acute distress, is awake and alert, oriented 3 HEENT: Atraumatic and normocephalic CVS: +S1S2 Lungs: There appears to be fair air entry bilaterally without any evidence of wheezing, crackles or rhonchi Abdomen: Abdomen is soft, again there is no distention or tenderness appreciated Extremities: Lower extremities reveal trace to 1+ pitting edema bilaterally Imaging: CT chest 12/13: 1. Dense lung field opacification as described above. Pneumonia is suspected. Malignancy cannot be ruled out. 2. There is adenopathy as described above. 3. Left pleural effusion. 4. Other findings and exam limitations as described above. CT abdomen / pelvis 12/13: 1. Lung base findings as described above. 2. Limited examination showing no evidence of acute intra-abdominal or intrapelvic disease with findings as described above. ECHO 12/13: 1. Normal global left ventricular systolic function. Assessment of the left ventricular diastolic function appeared to be normal. 2. Aortic valve sclerosis without stenosis or aortic regurgitation. 3. Mitral annulus calcification with trace mitral regurgitation. 4. Trace pericardial effusion. Renal US 12/15: No acute sonographic abnormality in the visualized kidneys and upper collecting systems. CXR 12/17: Evidence of improvement and technically related findings as described above. Follow-up is suggested. CXR 12/19: 100% left pneumothorax with minimal associated tension. CXR 12/19: 50% re-expansion of the left lung with pleural catheter in place. Patchy infiltrate right lower lobe. CT chest 12/19: There is a left thoracotomy tube. The left pneumothorax has significantly decreased in size from the plain film study earlier today. There is subcutaneous emphysema along the left anterior and left lateral chest phillips. The large left lung infiltrate on the comparison CT has decreased in size. There is a new patchy infiltrate in the right upper lobe posteriorly. Small left pleural effusion. Wall thickening of the colonic splenic flexure, nonspecific, but could possibly represent inflammatory versus infectious colitis in the appropriate clinical setting. CT abdomen / pelvis 12/19: There is no ascites or pneumoperitoneum. Wall thickening of the descending colon and sigmoid colon, nonspecific but compatible with infectious versus inflammatory colitis in the appropriate clinical setting. No mass or adenopathy. Some of the mid small bowel loops are mildly dilated but fluid filled with no air-fluid levels, possibly ileus. Ovoid soft tissue density in each inguinal canal distally, possibly none descended testes versus hydroceles. Assessment and plan: Acute respiratory failure with hypoxia and hypercapnia - likely 2/2 multifactorial etiology - Breathing remains unchanged - c/w chest PT / Acapella / Incentive spirometry / Mucinex - c/w inhaled therapy as ordered - s/p BIPAP Sepsis - possibly 2/2 viral pneumonia with superimposed bacterial pneumonia (possibly Atypical 2/2 Legionella - PCT improving - Blood cultures 12/12: No growth at 5 days - Respiratory panel 12/12: Human rhinovirus/enterovirus - Will start Levofloxacin (Day #1); Will DC Zosyn (Day #10); s/p Vancomycin and Azithromycin Left sided tension pneumothorax - s/p Chest tube placement on 12/19/2020 - Air leak persists - Pulmonology on consultation; appreciate their input Leukocytosis - possibly 2/2 infectious etiology - Counts improved; CRP relatively stable - Peripheral smear 12/20: Leukocytosis with shift to left and presence of a few immature myeloid cells. Normochromic normocytic anemia, new finding, can be further evaluated later if it persists after the acute disease process is resolved. Poikilocytosis is minimal. Platelet count is normal. The findings may be related to an ongoing infectious/acute inflammatory process or medication/steroids. - C diff PCR negative - c/w Antibiotics (Stated above) Atrial fibrillation - Remains rate controlled - Throid function noted - ECHO noted above - c/w rate control with Diltiazem - Full anticoagulation with Lovenox on hold Normocytic anemia - Hg has had a slight decrease this morning without IV fluids - Iron panel / B12 / Folate / hemolysis workup noted - Direct Maury test negative - Reticulocyte index remains low - suggesting hyperproliferation - Stool for occult blood positive - s/p 4 units PRBC - Will transfuse 1 unit PRBC again this morning Occult positive / Diarrhea / Dark stools - c/w Clear liquid diet - c/w Protonix IV / Carafate - Consulted GI s/p Abdominal pain KEHINDE - likely 2/2 pre-renal etiology 2/2 low Hg - Cr improving - UA negative; FENa 0.2% - s/p IV fluid hydration Schizophrenia - s/p Olanzapine during hospital course - Currently not requiring any further intervention - Will have outpatient follow up with Psychiatry DVT prophylaxis - c/w TEDs/Sequentials - s/p therapeutic Lovenox Disposition: - Awaiting clinical improvement - Antibiotics adjusted VS,Fishbone, I+O VS, Fishbone, I+O Laboratory Tests 12/23/20 05:03 Vital Signs Date Time Temp Pulse Resp B/P (MAP) Pulse Ox O2 Delivery O2 Flow Rate FiO2 12/23/20 08:00 98.4 109 17 127/61 (83) 94 Nasal Cannula 2.0 12/19/20 12:00 40 I&O- Last 24 Hours up to 6 AM 12/23/20 06:00 Intake Total 1630 ml Output Total 1829 ml Balance -199 ml TEO WANG MD Dec 23, 2020 10:07
[2020-12-23] MEDS: LevoFLOXacin IV 750 MG in IV 1 EA IV SCH (12:00)
[2020-12-23] MEDS: RAMELTEON 8 MG TAB (ROZEREM) PO SCH (20:53)
[2020-12-24] VITALS (7 sets, daily range): BP systolic 120–147; BP diastolic 56–64
[2020-12-24] MEDS: IPRATROPIUM 0.5MG/ALBUTEROL 2.5MG INH SOL UD 3ML (DUONEB) NEB SCH ×7 (00:09→23:37)
[2020-12-24] MEDS: **hydrALAZINE HCL** 25 MG TAB PO SCH ×3 (05:12→21:04)
[2020-12-24 05:29] LABS: BASO % 0.1 % (0.0-1.0); EOS % 0.2 % (0.0-3.0); HEMATOCRIT 29.5 % (42.0-52.0); HEMOGLOBIN 9.6 g/dl (13.5-17.5); LYMPH # 0.6 10^3/uL (1.5-5.0); LYMPH % 3.1 % (24.0-44.0); MEAN CORPUSCULAR HEMOGLOBIN 29.9 pg (27.0-33.0); MEAN CORPUSCULAR HGB CONC 32.5 g/dl (32.0-36.5); MEAN CORPUSCULAR VOLUME 91.9 fl (80.0-96.0); MONO # 0.6 10^3/uL (0.0-0.8); MONO % 2.7 % (2.0-8.0); PLATELET COUNT, AUTOMATED 477 10^3/uL (150-450); RED BLOOD COUNT 3.21 10^6/uL (4.30-6.10); WHITE BLOOD COUNT 20.5 10^3/uL (4.0-10.0)
[2020-12-24 05:44] LABS: BLOOD UREA NITROGEN 29 MG/DL (7-18); C REACTIVE PROTEIN QUANTITATIV 1.12 MG/DL (0.00-0.30); CALCIUM LEVEL 6.9 MG/DL (8.8-10.2); CARBON DIOXIDE LEVEL 26 MEQ/L (21-32); CHLORIDE LEVEL 108 MEQ/L (98-107); CREATININE FOR GFR 0.75 MG/DL (0.70-1.30); GLOMERULAR FILTRATION RATE > 60.0 (>49); GLUCOSE, FASTING 166 MG/DL (70-100); MAGNESIUM LEVEL 1.9 MG/DL (1.8-2.4); POTASSIUM SERUM 4.6 MEQ/L (3.5-5.1); SODIUM LEVEL 137 MEQ/L (136-145)
[2020-12-24] MEDS: SUCRALFATE SUSP 1GM/10ML UD PO SCH ×4 (09:17→20:53)
--- NOTE | 2020-12-24 09:32 | IPNPDOC ---
Subjective Date Seen The patient was seen on 12/24/20. Subjective Chief Complaint/HPI Patient doing well with absolutely no complaint today. He denies of fever, chills, shortness of breath, chest pain, palpitation, orthopnea. General: Denies: Chills, Fatigue Constitutional: Denies: Fever ENT: Denies: Sore Throat Skin: Denies: Rash Pulmonary: Reports: Cough; Denies: Dyspnea Cardiovascular: Denies: Chest Pain, Palpitations, Orthopnea Gastrointestinal: Denies: Nausea, Abdominal Pain, Diarrhea Neurological: Denies: Weakness Objective Physical Examination General Exam: Positive: Alert, Cooperative, No Acute Distress Eye Exam: Negative: Sclera icteric ENT Exam: Positive: Atraumatic Neck Exam: Positive: Supple; Negative: JVD Chest Exam: Positive: Rales (Coarse crackle of the right lower lung field.), Rhonchi (Rhonchi of the left lung field); Negative: Wheezing Heart Exam: Positive: Rate Normal, Regular Rhythm Abdomen Exam: Positive: Normal bowel sounds, Soft; Negative: Tenderness Extremity Exam: Negative: Clubbing, Edema Neuro Exam: Positive: Normal Speech Psych Exam: Positive: Mental status NL, Oriented x 3 Assessment /Plan Assessment This is a 60 yo gentleman with history of schizophrenia admitted to the hospital with multi-lobar PNA and hypoxic and hypercapnic respiratory failure. 1. Hypoxic and hypercapnic respiratory failure 2. Multi-lobar legionella PNA involving the entire left lung field with superimposed viral/rhinovirus PNA 3. Left-sided secondary pneumothorax s/p chest tube decompression w/ persistent airleak 4. Acute blood loss anemia, ? GI Bleed Plan/VTE VTE Prophylaxis Ordered?: Yes Plan 1. Continue Levaquin for Legionella pneumonia. 2. Tapering methylprednisolone. 3. Left-sided chest tube connected to -20 cm of water suction. He still had persistent air leak in the chest tube. We will continue with chest tube to wall suction at -20 cm of water. He may take a while for the leak to heal. 4. GI consulted by primary due to progressive anemia and fecal occult test positive. Continue to hold anticoagulation for his A-fib. Disposition continue hospital care. VS, I&O, 24H, Fishbone Vital Signs/I&O Vital Signs Date Time Temp Pulse Resp B/P (MAP) Pulse Ox O2 Delivery O2 Flow Rate FiO2 12/24/20 08:00 98.5 79 18 129/56 (80) 93 Room Air 12/24/20 04:00 2.0 12/19/20 12:00 40 I&O- Last 24 Hours up to 6 AM 12/24/20 06:00 Intake Total 1150 ml Output Total 2485 ml Balance -1335 ml Laboratory Data 24H LABS Laboratory Tests 2 12/24/20 05:01: Immature Granulocyte % (Auto) 0.9, Neutrophils (%) (Auto) 93.0H, Lymphocytes (%) (Auto) 3.1L, Monocytes (%) (Auto) 2.7, Eosinophils (%) (Auto) 0.2, Basophils (%) (Auto) 0.1, Neutrophils # (Auto) 19.0H, Lymphocytes # (Auto) 0.6L, Monocytes # (Auto) 0.6, Eosinophils # (Auto) 0.0, Basophils # (Auto) 0.0, Nucleated Red Blood Cells % (auto) 0.0, Anion Gap 3L, Glomerular Filtration Rate > 60.0, Calcium Level 6.9L, Magnesium Level 1.9, C-Reactive Protein, Quantitative 1.12H CBC/BMP Laboratory Tests 12/24/20 05:01 Microbiology Microbiology 12/19/20 Stool Occult Blood (TAE) - Final, Complete LEATHA SOSA MD Dec 24, 2020 09:32
[2020-12-24] MEDS: guaiFENesin ER 600 MG TAB PO SCH ×2 (10:03→20:52)
[2020-12-24] MEDS: PANTOPRAZOLE 40MG VIAL (C9113 PER 1) IV SCH ×2 (10:03→20:53)
[2020-12-24] MEDS: amLODIPine 5 MG TAB PO SCH (10:03)
[2020-12-24] MEDS: LevoFLOXacin IV 750 MG in IV 1 EA IV SCH (11:37)
--- NOTE | 2020-12-24 12:09 | IPNPDOC ---
Text Note Date of Service The patient was seen on 12/24/20. NOTE Subjective: Patient is a 60-year-old male with PMHx Schizophrenia, who presented to the emergency room dropped off by his cousin is of shortness of breath. Upon arrival to emergency room, patient was found to have a left lower lobe pneumonia and was admitted to the hospitalist service for further evaluation and treatment. ABG had revealed significant respiratory acidosis and patient was placed in the ICU. Pulmonology was called on consultation for noninvasive ventilation. Patient has since been downgraded to the PCU. Patient was seen and examined at the bedside. Patient reports that he feels relatively well. He denies any chest pain, palpitations, nausea, vomiting, abdominal pain, still reports diarrhea. Patient denies any shortness of breath, but is on 2 L of nasal cannula oxygen and has mild cough. Objective: Vitals (See below) General: Sitting up in bed watching television appears to be comfortable without any acute distress, is awake and alert, oriented to person, place and time, knows with the president is HEENT: NC, and atraumatic CVS: +S1S2 Lungs: Rhonchi are appreciated at left lung field Abdomen: Soft without distention or any tenderness Extremities: Ankles and feet reveal 1+ pitting edema Imaging: CT chest 12/13: 1. Dense lung field opacification as described above. Pneumonia is suspected. Malignancy cannot be ruled out. 2. There is adenopathy as described above. 3. Left pleural effusion. 4. Other findings and exam limitations as described above. CT abdomen / pelvis 12/13: 1. Lung base findings as described above. 2. Limited examination showing no evidence of acute intra-abdominal or intrapelvic disease with findings as described above. ECHO 12/13: 1. Normal global left ventricular systolic function. Assessment of the left ventricular diastolic function appeared to be normal. 2. Aortic valve sclerosis without stenosis or aortic regurgitation. 3. Mitral annulus calcification with trace mitral regurgitation. 4. Trace pericardial effusion. Renal US 12/15: No acute sonographic abnormality in the visualized kidneys and upper collecting systems. CXR 12/17: Evidence of improvement and technically related findings as described above. Follow-up is suggested. CXR 12/19: 100% left pneumothorax with minimal associated tension. CXR 12/19: 50% re-expansion of the left lung with pleural catheter in place. Patchy infiltrate right lower lobe. CT chest 12/19: There is a left thoracotomy tube. The left pneumothorax has significantly decreased in size from the plain film study earlier today. There is subcutaneous emphysema along the left anterior and left lateral chest phillips. The large left lung infiltrate on the comparison CT has decreased in size. There is a new patchy infiltrate in the right upper lobe posteriorly. Small left pleural effusion. Wall thickening of the colonic splenic flexure, nonspecific, but could possibly represent inflammatory versus infectious colitis in the appropriate clinical setting. CT abdomen / pelvis 12/19: There is no ascites or pneumoperitoneum. Wall thickening of the descending colon and sigmoid colon, nonspecific but compatible with infectious versus inflammatory colitis in the appropriate clin ical setting. No mass or adenopathy. Some of the mid small bowel loops are mildly dilated but fluid filled with no air-fluid levels, possibly ileus. Ovoid soft tissue density in each inguinal canal distally, possibly none descended testes versus hydroceles. Assessment and plan: Acute respiratory failure with hypoxia and hypercapnia - likely 2/2 multifactorial etiology - Patient has reported improvement of his breathing - Will attempt to wean off oxygen - c/w chest PT / Acapella / Incentive spirometry / Mucinex - c/w inhaled therapy as ordered - s/p BIPAP Sepsis - possibly 2/2 viral pneumonia with superimposed bacterial pneumonia - likely 2/2 Atypical 2/2 Legionella pneumonia - PCT improving - Blood cultures 12/12: No growth at 5 days - Respiratory panel 12/12: Human rhinovirus/enterovirus - c/w Levofloxacin (Day #2); Will DC Zosyn (Day #10); s/p Vancomycin and Azithromycin Left sided tension pneumothorax - s/p Chest tube placement on 12/19/2020 - Air leak persists - Will get CXR (PA / LAT) - Pulmonology on consultation; appreciate their input Leukocytosis - possibly 2/2 infectious etiology - WBC / CRP improving - Peripheral smear 12/20: Leukocytosis with shift to left and presence of a few immature myeloid cells. Normochromic normocytic anemia, new finding, can be further evaluated later if it persists after the acute disease process is resolved. Poikilocytosis is minimal. Platelet count is normal. The findings may be related to an ongoing infectious/acute inflammatory process or medication/steroids. - C diff PCR negative - c/w Antibiotics (Stated above) Paroxysmal atrial fibrillation - Remains rate controlled - Throid function noted - ECHO noted above - c/w rate control with Diltiazem - Full anticoagulation with Lovenox on hold (re: GI bleed) Acute blood loss anemia / Normocytic anemia - Hg has had a slight decrease this morning without IV fluids - Iron panel / B12 / Folate / hemolysis workup noted - Direct Maury test negative - Reticulocyte index remains low - suggesting hyperproliferation - Stool for occult blood positive - s/p 5 units PRBC Occult positive / Diarrhea / Dark stools - c/w Clear liquid diet - c/w Protonix IV / Carafate - Consulted GI; appreciate their input s/p Abdominal pain s/p KEHINDE - likely 2/2 pre-renal etiology 2/2 low Hg - Cr returned to baseline - UA negative; FENa 0.2% - s/p IV fluid hydration Schizophrenia - s/p Olanzapine during hospital course - Currently not requiring any further intervention - Will have outpatient follow up with Psychiatry DVT prophylaxis - c/w TEDs/Sequentials - s/p therapeutic Lovenox Disposition: - Awaiting clinical improvement VSPrudencio I+O VS, Prudencio I+O Laboratory Tests 12/24/20 05:01 Vital Signs Date Time Temp Pulse Resp B/P (MAP) Pulse Ox O2 Delivery O2 Flow Rate FiO2 12/24/20 10:03 79 129/56 12/24/20 08:00 98.5 18 93 Room Air 12/24/20 04:00 2.0 12/19/20 12:00 40 I&O- Last 24 Hours up to 6 AM 12/24/20 06:00 Intake Total 1150 ml Output Total 2485 ml Balance -1335 ml TEO WANG MD Dec 24, 2020 12:09
[2020-12-24] MEDS: methylPREDNISolone 40MG 1ML VIAL IV SCH ×2 (12:23)
--- NOTE | 2020-12-24 12:52 | REP ---
INDICATION: Mild cough / L sided pneumothorax. COMPARISON: Comparison chest x-ray is from 19 December 2020. TECHNIQUE: Two views.. FINDINGS: Left pleural drainage catheter remains in place at the superomedial aspect of the left lung. There is a small left-sided pneumothorax visible today, improved from the 19 December 2020 prior radiograph. There is soft tissue emphysema fairly extensively about the extra thoracic soft tissues on the left and bilaterally in the neck. The right lung appears somewhat hyperinflated but clear. There is some residual atelectasis in the left base. Volume loss is seen in the left hemithorax as before. IMPRESSION: Improved left-sided pneumothorax with left chest tube in place. Extra thoracic soft tissue emphysema.. <Electronically signed by Faraz Peacock > 12/24/20 [id number]
--- NOTE | 2020-12-24 15:02 | REP ---
INDICATION: pnuemothorax (left) eval. COMPARISON: Comparison chest CT study is from December 19, 2020.. TECHNIQUE: Helical scanning is acquired. 3 mm axial images are generated. Coronal and sagittal MPR and coronal MIP images are generated. FINDINGS: There is extensive extra thoracic soft tissue emphysema along the left chest wall, left shoulder girdle, and at the base of the neck bilaterally as seen on radiographs. A percutaneous drainage catheter is seen in the left pleural space at the apex terminating superomedially. The sideholes of the catheter appear to be within the pleural space. There is loculated pleural fluid in the posterior lung gutter and in the major fissure. There is incomplete re-expansion of the left lung. Multiple air bulla lie are visible scattered about the left lung parenchyma. There is some adjacent consolidation surrounding several of these. Similarly, there are some air containing cysts cystic changes in the lingula at the left base. There is some visceral pleural thickening. A small left-sided pneumothorax persists. No definite adenopathy. Platelike atelectasis is seen in the right lower lobe. Normal adrenal glands are seen. The visualized upper abdominal structures show minimal fluid in the left pericolic gutter. IMPRESSION: Improved small left-sided pneumothorax post chest tube placement. Some residual pleural air is seen in there is increased extra thoracic soft tissue emphysema compared to the prior CT study. There is a small quantity of pleural fluid and multiple pulmonary parenchymal air cysts or bulla lie are seen predominantly in the upper lobe on the left. <Electronically signed by Faraz Peacock > 12/24/20 [id number]
[2020-12-24] MEDS ORDERED: LIDOCAINE 1% MDV 20ML VIAL As Ordered ONE (15:49)
--- NOTE | 2020-12-24 17:03 | REP ---
INDICATION: no access; critical illness.. COMPARISON: None. TECHNIQUE: The procedure was performed under the direct supervision of Dr. Peacock. The risks and benefits of the procedure were explained to the patient and informed consent was obtained. The left cephalic vein was localized using ultrasound guidance. The skin was prepped and draped in a sterile fashion. 2 mL of 1% lidocaine was used as a local anesthetic. Using ultrasound guidance the cephalic vein was cannulated and a 0.018 guidewire was inserted and advanced to the SVC using fluoroscopic guidance, and last image hold technology. The needle was removed and a 5.5 [place]i dilator and peel-away sheath was inserted over the guide wire. A 5.5 [place]i dual lumen catheter was cut to length of 48 cm. The dilator was removed and the catheter was inserted over the guide wire with the tip ending in the SVC. The peel-away sheath was removed and the catheter was flushed with heparinized saline as per Hospital protocol. The catheter was affixed to the skin and a sterile dressing was applied. Estimated blood loss: Less than 1 mL The patient tolerated the procedure well and there were no immediate complications. 0.8 minutes of fluoro time was utilized for this procedure. FINDINGS: None IMPRESSION: PICC line insertion left cephalic vein with the tip ending in the SVC. <Electronically signed by Vipul Luo > 12/24/20 [id number] <Electronically signed by Faraz Peacock > 12/24/20 [id number]
[2020-12-24] MEDS ORDERED: SODIUM CHLORIDE 0.9% INJ 10 ML SYR IV PRN (18:05)
[2020-12-24] MEDS: RAMELTEON 8 MG TAB (ROZEREM) PO SCH (20:51)
[2020-12-24] MEDS ORDERED: diphenhydrAMINE 50MG/ML VIAL (J1200) IV ONE (22:15)
[2020-12-25] VITALS: BP 137/58
[2020-12-25] MEDS: methylPREDNISolone 40MG 1ML VIAL IV SCH
--- NOTE | 2020-12-25 02:24 | IPNPDOC ---
Text Note Date of Service The patient was seen on 12/24/20. NOTE Notify patient with rash. Patient seen at bedside. He appears very comfortable on his oxygen. Patient reports that his rash began on the 15 after he had his blood transfusions. He reports it was itchy but has gotten better. The rash is red raised maculopapular from trunk down bilateral legs and on his back. None on his arms bilaterally. Patient denies any joint pain shortness of breath flank pain. He endorses chronic back pain. He denies any issues urinating. Plan for Benadryl dosing and blood bank to be contacted by RN for protocol lab testing. We will continue to monitor. VS,Fishbone, I+O VS, Fishbone, I+O Laboratory Tests 12/24/20 05:01 Vital Signs Date Time Temp Pulse Resp B/P (MAP) Pulse Ox O2 Delivery O2 Flow Rate FiO2 12/25/20 00:00 97.6 80 19 137/58 (84) 94 Room Air 12/24/20 04:00 2.0 12/19/20 12:00 40 I&O- Last 24 Hours up to 6 AM 12/25/20 06:00 Intake Total 1860 ml Output Total 250 ml Balance 1610 ml FRITZ NOYOLA NP Dec 25, 2020 02:24
[2020-12-25] MEDS: IPRATROPIUM 0.5MG/ALBUTEROL 2.5MG INH SOL UD 3ML (DUONEB) NEB SCH ×5 (03:13→20:50)
[2020-12-25 04:00] VITALS: BP 122/59
[2020-12-25] MEDS: SODIUM CHLORIDE 0.9% INJ 10 ML SYR IV SCH ×2 (05:40→18:37)
[2020-12-25] MEDS: **hydrALAZINE HCL** 25 MG TAB PO SCH ×3 (05:40→21:29)
[2020-12-25] MEDS ORDERED: SODIUM CHLORIDE 0.9% INJ 10 ML SYR IV SCH (06:00)
[2020-12-25 06:05] LABS: BASO % 0.1 % (0.0-1.0); EOS # 0.1 10^3/uL (0.0-0.5); EOS % 0.3 % (0.0-3.0); HEMOGLOBIN 9.2 g/dl (13.5-17.5); LYMPH # 0.4 10^3/uL (1.5-5.0); LYMPH % 2.3 % (24.0-44.0); MEAN CORPUSCULAR HEMOGLOBIN 30.3 pg (27.0-33.0); MEAN CORPUSCULAR HGB CONC 32.9 g/dl (32.0-36.5); MEAN CORPUSCULAR VOLUME 92.1 fl (80.0-96.0); MONO # 0.3 10^3/uL (0.0-0.8); MONO % 1.7 % (2.0-8.0); NEUTROPHILS % 94.8 % (36.0-66.0); PLATELET COUNT, AUTOMATED 436 10^3/uL (150-450); RED BLOOD COUNT 3.04 10^6/uL (4.30-6.10)
[2020-12-25 06:20] LABS: BLOOD UREA NITROGEN 24 MG/DL (7-18); CALCIUM LEVEL 6.9 MG/DL (8.8-10.2); CARBON DIOXIDE LEVEL 29 MEQ/L (21-32); CHLORIDE LEVEL 108 MEQ/L (98-107); CREATININE FOR GFR 0.74 MG/DL (0.70-1.30); GLOMERULAR FILTRATION RATE > 60.0 (>49); GLUCOSE, FASTING 139 MG/DL (70-100); MAGNESIUM LEVEL 1.9 MG/DL (1.8-2.4); POTASSIUM SERUM 4.5 MEQ/L (3.5-5.1); SODIUM LEVEL 138 MEQ/L (136-145)
[2020-12-25 08:00] VITALS: BP 122/59
[2020-12-25] MEDS: guaiFENesin ER 600 MG TAB PO SCH ×2 (08:33→21:28)
[2020-12-25] MEDS: SUCRALFATE SUSP 1GM/10ML UD PO SCH ×4 (08:33→21:28)
[2020-12-25] MEDS: PANTOPRAZOLE 40MG VIAL (C9113 PER 1) IV SCH ×2 (08:33→21:29)
[2020-12-25] MEDS: amLODIPine 5 MG TAB PO SCH (08:34)
[2020-12-25] MEDS: LevoFLOXacin 750 MG TABLET PO SCH (10:29)
--- NOTE | 2020-12-25 10:53 | IPNPDOC ---
Date Seen The patient was seen on 12/25/20. Progress Note SUBJECTIVE: Denies any shortness of breath chest pain pressure tightness fever chills or sputum production Had 2 bowel movements yesterday .loose stools OBJECTIVE PHYSICAL EXAMINATION: VITAL SIGNS: Please see below. GENERAL: Speaks in full sentences awake alert oriented to person place and time no distress HEENT: No JVD moist mucous membranes CARDIOVASCULAR: S1-S2 no JVD thyromegaly RESPIRATORY: Coarse breath sounds diminished ABDOMINAL: Positive bowel sounds soft nontender nondistended no rebound or guarding EXTREMITIES: 1+ edema bilateral lower extremities LABORATORY DATA, IMAGING STUDIES, MICROBIOLOGY: Please see below. ASSESSMENT AND PLAN: 60-year-old with history of schizophrenia admitted for shortness of breath and treated for left lower lobe pneumonia but developed respiratory acidosis requiring noninvasive ventilation in the ICU which resolved transferred to PCU for the following acute issues. Acute hypoxic and hypercarbic respiratory failure requiring ICU admission and noninvasive ventilation, resolved -On supplemental oxygen to keep saturations above 90% Legionella pneumonia On Levaquin day 3 status post Zosyn day 10 and Vanco and azithromycin blood cultures negative Human rhinovirus enteroviral infection Found on respiratory panel admission Left tension pneumothorax, resolved status post chest tube 12/19/2020 Managed by triple drum operator Dr. Boyer Paroxysmal atrial fibrillation Rate controlled on diltiazem On no anticoagulation secondary to ongoing GI bleed Acute GI blood loss/symptomatic anemia with heme positive stool Status post 5 units RBC transfusion Transfuse as needed On Protonix and Carafate Consulted GI Acute kidney injury Resolved Status post IV fluids Schizophrenia Controlled VS, I&O, 24H, Fishbone Vital Signs/I&O Vital Signs Date Time Temp Pulse Resp B/P (MAP) Pulse Ox O2 Delivery O2 Flow Rate FiO2 12/25/20 08:34 83 125/57 12/25/20 08:00 97.6 22 95 Room Air 12/24/20 04:00 2.0 12/19/20 12:00 40 I&O- Last 24 Hours up to 6 AM 12/25/20 06:00 Intake Total 1860 ml Output Total 290 ml Balance 1570 ml Laboratory Data 24H LABS Laboratory Tests 2 12/25/20 05:42: Immature Granulocyte % (Auto) 0.8, Neutrophils (%) (Auto) 94.8H, Lymphocytes (%) (Auto) 2.3L, Monocytes (%) (Auto) 1.7L, Eosinophils (%) (Auto) 0.3, Basophils (%) (Auto) 0.1, Neutrophils # (Auto) 18.0H, Lymphocytes # (Auto) 0.4L, Monocytes # (Auto) 0.3, Eosinophils # (Auto) 0.1, Basophils # (Auto) 0.0, Nucleated Red Blood Cells % (auto) 0.0, Anion Gap 1L, Glomerular Filtration Rate > 60.0, C alcium Level 6.9L, Magnesium Level 1.9, C-Reactive Protein, Quantitative 0.80H CBC/BMP Laboratory Tests 12/25/20 05:42 Microbiology Microbiology 12/19/20 Stool Occult Blood (TAE) - Final, Complete JAMIE OROPEZA MD Dec 25, 2020 10:53
--- NOTE | 2020-12-25 11:57 | REP ---
INDICATION: small tension ptx s/p chest tube. COMPARISON: Yesterday at 12:32 p.m. TECHNIQUE: PA and lateral FINDINGS: The left-sided pneumothorax is seen on the prior exam is essentially unchanged. The degree of subcutaneous emphysema is unchanged. The thoracotomy tube tip is now somewhat more laterally positioned in the left lung apical region. The patchy left basilar opacities seen previously are essentially unchanged possibly somewhat less dense. IMPRESSION: As above <Electronically signed by Farooq Boyle > 12/25/20 [id number]
--- NOTE | 2020-12-25 15:04 | IPNPDOC ---
Subjective Date Seen The patient was seen on 12/25/20. Subjective Chief Complaint/HPI Patient denies of fever, chills, cough, shortness of breath, chest pain, orthopnea. General: Denies: Chills, Fatigue Constitutional: Denies: Chills, Fever ENT: Denies: Sore Throat Skin: Denies: Rash Pulmonary: Denies: Dyspnea, Cough Cardiovascular: Denies: Chest Pain, Orthopnea, Edema Gastrointestinal: Denies: Nausea, Vomiting, Abdominal Pain, Diarrhea Neurological: Denies: Weakness Objective Physical Examination General Exam: Positive: Alert, Cooperative, No Acute Distress Eye Exam: Negative: Sclera icteric ENT Exam: Positive: Atraumatic Neck Exam: Positive: Supple; Negative: JVD Chest Exam: Positive: Rales (Coarse crackle of the right lower lung field.), Rhonchi (Rhonchi of the left lung field); Negative: Wheezing Heart Exam: Positive: Rate Normal, Regular Rhythm Abdomen Exam: Positive: Normal bowel sounds, Soft; Negative: Tenderness Extremity Exam: Negative: Clubbing, Edema Neuro Exam: Positive: Normal Speech Psych Exam: Positive: Mental status NL, Oriented x 3 Assessment /Plan Assessment This is a 60 yo gentleman with history of schizophrenia admitted to the hospital with multi-lobar PNA and hypoxic and hypercapnic respiratory failure. 1. Multilobar necrotizing pneumonia secondary to Legionella 2. Secondary spontaneous pneumothorax 3. Underlying history of COPD Plan/VTE VTE Prophylaxis Ordered?: Yes Plan 1. Continue with Levaquin for Legionella pneumonia. He will need a prolonged course of antibiotic. He will also need a follow-up chest x-ray in several weeks to ensure resolution. 2. Patient still has persistent air leak in left-sided chest tube. We will continue with -20 cm water wall suction. Daily chest x-ray. 3. We can start tapering systemic corticosteroid. Disposition Continue hospital care VS, I&O, 24H, Fishbone Vital Signs/I&O Vital Signs Date Time Temp Pulse Resp B/P (MAP) Pulse Ox O2 Delivery O2 Flow Rate FiO2 12/25/20 13:13 131/62 12/25/20 13:13 78 12/25/20 08:00 97.6 22 95 Room Air 12/24/20 04:00 2.0 12/19/20 12:00 40 I&O- Last 24 Hours up to 6 AM 12/25/20 06:00 Intake Total 1860 ml Output Total 290 ml Balance 1570 ml Laboratory Data 24H LABS Laboratory Tests 2 12/25/20 05:42: Immature Granulocyte % (Auto) 0.8, Neutrophils (%) (Auto) 94.8H, Lymphocytes (%) (Auto) 2.3L, Monocytes (%) (Auto) 1.7L, Eosinophils (%) (Auto) 0.3, Basophils (%) (Auto) 0.1, Neutrophils # (Auto) 18.0H, Lymphocytes # (Auto) 0.4L, Monocytes # (Auto) 0.3, Eosinophils # (Auto) 0.1, Basophils # (Auto) 0.0, Nucleated Red Blood Cells % (auto) 0.0, Anion Gap 1L, Glomerular Filtration Rate > 60.0, Calcium Level 6.9L, Magnesium Level 1.9, C-Reactive Protein, Quantitative 0.80H CBC/BMP Laboratory Tests 12/25/20 05:42 Microbiology Microbiology 12/19/20 Stool Occult Blood (TAE) - Final, Complete LEATHA SOSA MD Dec 25, 2020 15:03
[2020-12-25 16:00] VITALS: BP 126/58
[2020-12-25 20:00] VITALS: BP 120/62
[2020-12-25] MEDS: RAMELTEON 8 MG TAB (ROZEREM) PO SCH (21:29)
[2020-12-25] MEDS ORDERED: ACETAMINOPHEN TAB 650MG DOSE (2X325MG) PO PRN (21:50)
[2020-12-25] MEDS: diphenhydrAMINE 50MG/ML VIAL (J1200) IV PRN (22:09)
[2020-12-25] MEDS: PERCOCET 5MG/325MG TAB PO PRN (22:10)
[2020-12-26] VITALS: BP 120/59
[2020-12-26 04:00] VITALS: BP 123/58
[2020-12-26] MEDS: IPRATROPIUM 0.5MG/ALBUTEROL 2.5MG INH SOL UD 3ML (DUONEB) NEB SCH ×6 (04:00→20:18)
[2020-12-26] MEDS: SODIUM CHLORIDE 0.9% INJ 10 ML SYR IV SCH ×2 (06:14→17:52)
[2020-12-26] MEDS: **hydrALAZINE HCL** 25 MG TAB PO SCH ×3 (06:14→20:56)
[2020-12-26] MEDS: LevoFLOXacin 750 MG TABLET PO SCH (06:22)
[2020-12-26 06:28] LABS: BASO % 0.1 % (0.0-1.0); EOS # 0.6 10^3/uL (0.0-0.5); EOS % 3.5 % (0.0-3.0); HEMATOCRIT 27.9 % (42.0-52.0); LYMPH # 0.9 10^3/uL (1.5-5.0); LYMPH % 5.3 % (24.0-44.0); MEAN CORPUSCULAR HEMOGLOBIN 30.2 pg (27.0-33.0); MEAN CORPUSCULAR HGB CONC 32.3 g/dl (32.0-36.5); MEAN CORPUSCULAR VOLUME 93.6 fl (80.0-96.0); MONO # 1.1 10^3/uL (0.0-0.8); MONO % 6.1 % (2.0-8.0); NEUTROPHILS # 14.9 10^3/uL (1.5-8.5); NEUTROPHILS % 84.5 % (36.0-66.0); PLATELET COUNT, AUTOMATED 385 10^3/uL (150-450); RED BLOOD COUNT 2.98 10^6/uL (4.30-6.10); WHITE BLOOD COUNT 17.6 10^3/uL (4.0-10.0)
[2020-12-26 06:46] LABS: BLOOD UREA NITROGEN 21 MG/DL (7-18); CALCIUM LEVEL 7.2 MG/DL (8.8-10.2); CARBON DIOXIDE LEVEL 28 MEQ/L (21-32); CHLORIDE LEVEL 110 MEQ/L (98-107); CREATININE FOR GFR 0.74 MG/DL (0.70-1.30); GLOMERULAR FILTRATION RATE > 60.0 (>49); GLUCOSE, FASTING 97 MG/DL (70-100); MAGNESIUM LEVEL 1.8 MG/DL (1.8-2.4); SODIUM LEVEL 140 MEQ/L (136-145)
[2020-12-26 08:03] VITALS: BP 133/60
[2020-12-26] MEDS: amLODIPine 5 MG TAB PO SCH (08:13)
[2020-12-26] MEDS: PANTOPRAZOLE 40MG VIAL (C9113 PER 1) IV SCH ×2 (08:13→20:56)
[2020-12-26] MEDS: guaiFENesin ER 600 MG TAB PO SCH ×2 (08:13→20:56)
[2020-12-26] MEDS: SUCRALFATE SUSP 1GM/10ML UD PO SCH ×4 (08:13→20:56)
--- NOTE | 2020-12-26 09:38 | IPNPDOC ---
Subjective Date Seen The patient was seen on 12/26/20. Subjective Chief Complaint/HPI Patient complains of dry cough. He is not able to bring up any sputum. He denies of fever, chills, chest pain, orthopnea. General: Denies: Chills, Fatigue Constitutional: Denies: Chills, Fever ENT: Denies: Sore Throat Pulmonary: Reports: Cough; Denies: Dyspnea, Pleuritic Chest Pain Cardiovascular: Denies: Chest Pain, Orthopnea, Edema Gastrointestinal: Denies: Nausea, Abdominal Pain Neurological: Denies: Weakness Objective Physical Examination General Exam: Positive: Alert, Cooperative, No Acute Distress Eye Exam: Negative: Sclera icteric ENT Exam: Positive: Atraumatic Neck Exam: Positive: Supple; Negative: JVD Chest Exam: Positive: Rales (Coarse crackle of the right lower lung field.), Rhonchi (Rhonchi of the left lung field); Negative: Wheezing Heart Exam: Positive: Rate Normal, Regular Rhythm Abdomen Exam: Positive: Normal bowel sounds, Soft; Negative: Tenderness Extremity Exam: Negative: Clubbing, Edema Neuro Exam: Positive: Normal Speech Psych Exam: Positive: Mental status NL, Oriented x 3 Assessment /Plan Assessment This is a 60 yo gentleman with history of schizophrenia admitted to the hospital with multi-lobar PNA and hypoxic and hypercapnic respiratory failure. 1. Multilobar necrotizing pneumonia secondary to Legionella 2. Secondary spontaneous pneumothorax 3. Underlying history of COPD Plan/VTE VTE Prophylaxis Ordered?: Yes Plan 1. Continue with Levaquin for Legionella pneumonia. He will need a prolonged course of antibiotic. He will also need a follow-up chest x-ray in several weeks to ensure resolution. 2. Patient still has persistent air leak in left-sided chest tube. We will continue with -20 cm water wall suction. Daily chest x-ray. 3. Start tapering systemic corticosteroid. Disposition Continue hospital care. VS, I&O, 24H, Fishbone Vital Signs/I&O Vital Signs Date Time Temp Pulse Resp B/P (MAP) Pulse Ox O2 Delivery O2 Flow Rate FiO2 12/26/20 08:13 94 123/60 12/26/20 08:03 98.5 17 98 Room Air 12/25/20 08:00 1.0 I&O- Last 24 Hours up to 6 AM 12/26/20 06:00 Intake Total 480 ml Output Total 1310 ml Balance -830 ml Laboratory Data 24H LABS Laboratory Tests 2 12/26/20 06:07: Anion Gap 2L, Glomerular Filtration Rate > 60.0, Calcium Level 7.2L, Magnesium Level 1.8 12/26/20 06:08: Immature Granulocyte % (Auto) 0.5, Neutrophils (%) (Auto) 84.5H, Lymphocytes (%) (Auto) 5.3L, Monocytes (%) (Auto) 6.1, Eosinophils (%) (Auto) 3.5H, Basophils (%) (Auto) 0.1, Neutrophils # (Auto) 14.9H, Lymphocytes # (Auto) 0.9L, Monocytes # (Auto) 1.1H, Eosinophils # (Auto) 0.6H, Basophils # (Auto) 0.0, Nucleated Red Blood Cells % (auto) 0.0, C-Reactive Protein, Quantitative 0.97H CBC/BMP Laboratory Tests 12/26/20 06:07 12/26/20 06:08 Microbiology Microbiology 12/19/20 Stool Occult Blood (TAE) - Final, Complete LEATHA SOSA MD Dec 26, 2020 09:37
--- NOTE | 2020-12-26 09:40 | REP ---
INDICATION: ptx check resolution COMPARISON: None. TECHNIQUE: PA and lateral. FINDINGS: Left-sided pigtail catheter and [id number] in stable satisfactory position. Left pneumothorax appears to be relatively resolved. Underlying left-sided and right perihilar middle lobe pleuroparenchymal changes again noted and unchanged. Moderate subcutaneous emphysema along the left hemithorax remains stable. No obvious new acute process identified. IMPRESSION: 1. Left-sided pneumothorax appears relatively resolved. 2. Subcutaneous emphysema and pleuroparenchymal changes remain essentially stable. <Electronically signed by Nish Latham > 12/26/20 0971
[2020-12-26] MEDS: diphenhydrAMINE 50MG/ML VIAL (J1200) IV PRN ×3 (09:41→23:16)
[2020-12-26] MEDS: PERCOCET 5MG/325MG TAB PO PRN ×3 (09:41→23:17)
--- NOTE | 2020-12-26 11:48 | IPNPDOC ---
Date Seen The patient was seen on 12/26/20. Progress Note SUBJECTIVE: No fever chills shortness of breath is improved Continues to have a dry cough difficult to expectorate no nausea vomiting headache or constipation Had loose stools OBJECTIVE PHYSICAL EXAMINATION: VITAL SIGNS: Please see below. GENERAL: No use of respiratory accessory muscles no tripod positioning speaks in full sentences awake alert oriented to person place and time no distress HEENT: No JVD moist mucous membranes CARDIOVASCULAR: S1-S2 no JVD thyromegaly RESPIRATORY: Coarse breath sounds diminished left-sided chest tube ABDOMINAL: Positive bowel sounds soft nontender nondistended no rebound or guarding EXTREMITIES: 1+ edema bilateral lower extremities LABORATORY DATA, IMAGING STUDIES, MICROBIOLOGY: Please see below. ASSESSMENT AND PLAN: 60-year-old with history of schizophrenia admitted for shortness of breath and treated for left lower lobe pneumonia but developed r espiratory acidosis requiring noninvasive ventilation in the ICU which resolved transferred to PCU for the following acute issues. Acute hypoxic and hypercarbic respiratory failure requiring ICU admission and noninvasive ventilation, resolved -On supplemental oxygen to keep saturations above 90% -Secondary to necrotizing Legionella pneumonia and COPD exacerbation complicated by secondary spontaneous pneumothorax Multilobar necrotizing pneumonia secondary to Legionella On Levaquin day 4-will require prolonged course status post Zosyn day 10 and Vanco and azithromycin blood cultures negative Human rhinovirus enteroviral infection Found on respiratory panel admission Acute COPD exacerbation On prednisone and supplemental oxygen Levaquin for pneumonia secondary to Legionella Left spontaneous tension pneumothorax, chest tube 12/19/[address] engineer Dr[address] 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 Daily chest x-rays Paroxysmal atrial fibrillation Rate controlled on diltiazem On no anticoagulation secondary to ongoing GI bleed Acute GI blood loss/symptomatic anemia with heme positive stool Status post 5 units RBC transfusion Transfuse as needed On Protonix and Carafate Consulted GI Due to active Legionella pneumonia and COPD exacerbation no invasive procedures are planned Acute kidney injury Resolved Status post IV fluids Schizophrenia Controlled VS, I&O, 24H, Fishbone Vital Signs/I&O Vital Signs Date Time Temp Pulse Resp B/P (MAP) Pulse Ox O2 Delivery O2 Flow Rate FiO2 12/26/20 10:11 18 12/26/20 08:13 94 123/60 12/26/20 08:03 98.5 98 Room Air 12/25/20 08:00 1.0 I&O- Last 24 Hours up to 6 AM 12/26/20 06:00 Intake Total 480 ml Output Total 1310 ml Balance -830 ml Laboratory Data 24H LABS Laboratory Tests 2 12/26/20 06:07: Anion Gap 2L, Glomerular Filtration Rate > 60.0, Calcium Level 7.2L, Magnesium Level 1.8 12/26/20 06:08: Immature Granulocyte % (Auto) 0.5, Neutrophils (%) (Auto) 84.5H, Lymphocytes (%) (Auto) 5.3L, Monocytes (%) (Auto) 6.1, Eosinophils (%) (Auto) 3.5H, Basophils (%) (Auto) 0.1, Neutrophils # (Auto) 14.9H, Lymphocytes # (Auto) 0.9L, Monocytes # (Auto) 1.1H, Eosinophils # (Auto) 0.6H, Basophils # (Auto) 0.0, Nucleated Red Blood Cells % (auto) 0.0, C-Reactive Protein, Quantitative 0.97H CBC/BMP Laboratory Tests 12/26/20 06:07 12/26/20 06:08 Microbiology Microbiology 12/19/20 Stool Occult Blood (TAE) - Final, Complete JAMIE OROPEZA MD Dec 26, 2020 11:48
[2020-12-26 12:48] VITALS: BP 148/67
[2020-12-26] MEDS: TRIAMCINOLONE ACET 0.1% OINTMENT 80 GM TOP SCH ×2 (15:18→21:00)
[2020-12-26 16:34] VITALS: BP 123/59
[2020-12-26 20:00] VITALS: BP 130/71
[2020-12-26] MEDS: RAMELTEON 8 MG TAB (ROZEREM) PO SCH (20:56)
[2020-12-26] MEDS: SODIUM CHLORIDE 0.9% INJ 10 ML SYR IV PRN (21:01)
[2020-12-27] VITALS: BP 131/61
[2020-12-27] MEDS: IPRATROPIUM 0.5MG/ALBUTEROL 2.5MG INH SOL UD 3ML (DUONEB) NEB SCH ×6 (00:19→19:55)
[2020-12-27 04:00] VITALS: BP 131/60
[2020-12-27] MEDS: LevoFLOXacin 750 MG TABLET PO SCH (06:13)
[2020-12-27] MEDS: SODIUM CHLORIDE 0.9% INJ 10 ML SYR IV SCH ×2 (06:13→16:56)
[2020-12-27] MEDS: **hydrALAZINE HCL** 25 MG TAB PO SCH ×3 (06:14→21:44)
[2020-12-27] MEDS: PERCOCET 5MG/325MG TAB PO PRN ×3 (06:19→21:52)
[2020-12-27 08:00] VITALS: BP 124/56
[2020-12-27] MEDS ORDERED: predniSONE 20 MG TAB PO ONE (08:00)
--- NOTE | 2020-12-27 08:08 | IPNPDOC ---
Date Seen The patient was seen on 12/27/20. Progress Note SUBJECTIVE: had maculopapular generalized rash to chest abd b/l ue yesterday w/o stridor, wheezing, or angioedema, started on triamcinolone , benadryl, and quick taper of prednisone. sob unchanged. feels comfortable w/o BETTENCOURT when walking around the room. no n/v/chest pain/fever/chills/cough. tolerating his diet. sleeping well. OBJECTIVE PHYSICAL EXAMINATION: VITAL SIGNS: Please see below. GENERAL: no distress generalized maculopapular rash on chest abd HEENT: No JVD moist mucous membranes no stridor CARDIOVASCULAR: S1-S2 no JVD thyromegaly RESPIRATORY: Coarse breath sounds diminished left-sided chest tube no wheezing ABDOMINAL: Positive bowel sounds soft nontender nondistended no rebound or guarding EXTREMITIES: 1+ edema bilateral lower extremities SKIN: maculopapular erythematous rash on chest abd LABORATORY DATA, IMAGING STUDIES, MICROBIOLOGY: Please see below. ASSESSMENT AND PLAN: 60-year-old with history of schizophrenia admitted for shortness of breath and treated for left lower lobe pneumonia but developed respiratory acidosis requiring noninvasive ventilation in the ICU which resolved transferred to PCU for the following acute issues. Acute hypoxic and hypercarbic respiratory failure requiring ICU admission and noninvasive ventilation, resolved -doing well, but has not ambulated outside his room yet. -Secondary to necrotizing Legionella pneumonia and COPD exacerbation complicated by secondary spontaneous pneumothorax Multilobar necrotizing pneumonia secondary to Legionella On Levaquin day 5-will require prolonged course status post Zosyn day 10 and Vanco and azithromycin blood cultures negative Maculopapular rash -short 5 day course of prednisone -triamcinolone -atarax tid for comfort -no stridor or wheezing Hypertension controlled on cardizem, norvasc, and hydralazine Human rhinovirus enteroviral infection Found on respiratory panel admission Acute COPD exacerbation,resolved on steroid taper and supplemental oxygen Levaquin for pneumonia secondary to Legionella inhaled bronchodilators Left spontaneous tension pneumothorax, chest tube 12/19/2020 on left chest /subcutaneous emphysema 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 Daily chest x-rays Paroxysmal atrial fibrillation Rate controlled on diltiazem On no anticoagulation secondary to ongoing GI bleed Acute GI blood loss/symptomatic anemia with heme positive stool Status post 5 units RBC transfusion Transfuse as needed On Protonix and Carafate Consulted GI Due to active Legionella pneumonia and COPD exacerbation no invasive procedures are planned Acute kidney injury Resolved Status post IV fluids Schizophrenia Controlled VS, I&O, 24H, Fishbone Vital Signs/I&O Vital Signs Date Time Temp Pulse Resp B/P (MAP) Pulse Ox O2 Delivery O2 Flow Rate FiO2 12/27/20 06:49 20 Nasal Cannula 1.0 12/27/20 06:14 95 122/65 12/27/20 04:00 98.1 96 I&O- Last 24 Hours up to 6 AM 12/27/20 06:00 Intake Total 1640 ml Output Total 1485 ml Balance 155 ml Laboratory Data Microbiology Microbiology 12/19/20 Stool Occult Blood (TAE) - Final, Complete JAMIE OROPEZA MD Dec 27, 2020 08:08
--- NOTE | 2020-12-27 09:06 | IPNPDOC ---
Subjective Date Seen The patient was seen on 12/27/20. Subjective Chief Complaint/HPI Patient has absolutely no complaint today. He denies of fever, chills, shortness of breath, cough, chest pain. General: Denies: Chills, Fatigue Constitutional: Denies: Fever ENT: Denies: Sore Throat Skin: Reports: Rash (Hives) Pulmonary: Denies: Dyspnea, Cough, Pleuritic Chest Pain Cardiovascular: Denies: Chest Pain, Palpitations, Orthopnea Gastrointestinal: Denies: Nausea, Vomiting, Diarrhea Neurological: Denies: Weakness, Numbness Objective Physical Examination General Exam: Positive: Alert, Cooperative, No Acute Distress Eye Exam: Negative: Sclera icteric ENT Exam: Positive: Atraumatic Neck Exam: Positive: Supple; Negative: JVD Chest Exam: Positive: Rales (Coarse crackle of the right lower lung field.), Rhonchi (Rhonchi of the left lung field); Negative: Wheezing Heart Exam: Positive: Rate Normal, Regular Rhythm Abdomen Exam: Positive: Normal bowel sounds, Soft; Negative: Tenderness Extremity Exam: Negative: Clubbing, Edema Neuro Exam: Positive: Normal Speech Psych Exam: Positive: Mental status NL, Oriented x 3 Assessment /Plan Assessment This is a 60 yo gentleman with history of schizophrenia admitted to the hospital with multi-lobar PNA and hypoxic and hypercapnic respiratory failure. 1. Multilobar necrotizing pneumonia secondary to Legionella 2. Secondary spontaneous pneumothorax from cavitary lesions (left) 3. Underlying history of COPD Plan/VTE VTE Prophylaxis Ordered?: Yes Plan 1. Continue with Levaquin for Legionella pneumonia. He will need a prolonged course of antibiotic. He will also need a follow-up chest x-ray in several weeks to ensure resolution. 2. Air leak appears to have resolved today. Will reassess this afternoon. If he does not continue to have air leak, will perform dry CT scan of the chest to check for residual pneumothorax. If pneumothorax is absent, we will take out the chest tube. 3. Tapering systemic corticosteroid Disposition Continue hospital care. VS, I&O, 24H, Fishbone Vital Signs/I&O Vital Signs Date Time Temp Pulse Resp B/P (MAP) Pulse Ox O2 Delivery O2 Flow Rate FiO2 12/27/20 08:00 98.5 96 16 124/56 (78) 98 Nasal Cannula 1.0 I&O- Last 24 Hours up to 6 AM 12/27/20 06:00 Intake Total 1640 ml Output Total 1485 ml Balance 155 ml Laboratory Data Microbiology Microbiology 12/19/20 Stool Occult Blood (TAE) - Final, Complete LEATHA SOSA MD Dec 27, 2020 09:06
--- NOTE | 2020-12-27 09:37 | REP ---
INDICATION: Chest Tube COMPARISON: 12/26/2020 TECHNIQUE: PA and lateral. FINDINGS: Increased subcutaneous emphysema is suggested along the chest wall and neck. Pigtail catheter overlying the peripheral aspect of the left upper lung zone is in relatively stable position and while the opacified distal portion of the pigtail catheter is noted, the more distal translucent portion of the tubing is not definitively visualized as compared with prior examination and correlation may be warranted. Left-sided pleuroparenchymal changes remain essentially stable. No obvious residual pneumothorax is identified. Subtle vague opacity in the right mid lung zone is also noted and essentially stable. No new acute process appreciated. IMPRESSION: 1. There appears to be increased subcutaneous emphysema. 2. The distal visible portion of the pigtail catheter appears to be in stable position while the more translucent tubing noted on prior examination is not definitively identified on current examination. This may be secondary to positioning although correlation may be warranted given the increased amount of subcutaneous emphysema. 3. Pleuroparenchymal changes are otherwise stable. <Electronically signed by Nish Latham > 12/27/20 0933
[2020-12-27] MEDS: hydrOXYzine 50 MG TAB PO SCH ×3 (09:43→21:39)
[2020-12-27] MEDS: SUCRALFATE SUSP 1GM/10ML UD PO SCH ×4 (09:43→21:39)
[2020-12-27] MEDS: guaiFENesin ER 600 MG TAB PO SCH ×2 (09:43→21:39)
[2020-12-27] MEDS: amLODIPine 5 MG TAB PO SCH (09:43)
[2020-12-27] MEDS: TRIAMCINOLONE ACET 0.1% OINTMENT 80 GM TOP SCH ×2 (09:44→21:40)
[2020-12-27] MEDS: PANTOPRAZOLE 40MG VIAL (C9113 PER 1) IV SCH ×2 (09:44→21:39)
[2020-12-27 10:10] LABS: HEMATOCRIT 29.3 % (42.0-52.0); HEMOGLOBIN 9.3 g/dl (13.5-17.5); MEAN CORPUSCULAR HEMOGLOBIN 29.8 pg (27.0-33.0); MEAN CORPUSCULAR HGB CONC 31.7 g/dl (32.0-36.5); MEAN CORPUSCULAR VOLUME 93.9 fl (80.0-96.0); PLATELET COUNT, AUTOMATED 324 10^3/uL (150-450); RED BLOOD COUNT 3.12 10^6/uL (4.30-6.10); WHITE BLOOD COUNT 25.1 10^3/uL (4.0-10.0)
[2020-12-27 11:01] LABS: BLOOD UREA NITROGEN 20 MG/DL (7-18); CALCIUM LEVEL 6.8 MG/DL (8.8-10.2); CARBON DIOXIDE LEVEL 28 MEQ/L (21-32); CHLORIDE LEVEL 104 MEQ/L (98-107); CREATININE FOR GFR 0.94 MG/DL (0.70-1.30); GLOMERULAR FILTRATION RATE > 60.0 (>49); GLUCOSE, FASTING 114 MG/DL (70-100); POTASSIUM SERUM 3.9 MEQ/L (3.5-5.1); SODIUM LEVEL 136 MEQ/L (136-145)
[2020-12-27 16:00] VITALS: BP 116/54
[2020-12-27] MEDS: RAMELTEON 8 MG TAB (ROZEREM) PO SCH (21:39)
[2020-12-27 21:44] VITALS: BP 122/55
[2020-12-27] MEDS: SODIUM CHLORIDE 0.9% INJ 10 ML SYR IV PRN (21:48)
[2020-12-27 23:38] VITALS: BP 116/59
[2020-12-28] VITALS (25 sets, daily range): BP systolic 108–142; BP diastolic 50–66; O2SAT 88–99
[2020-12-28] MEDS: PERCOCET 5MG/325MG TAB PO PRN (04:43)
[2020-12-28] MEDS: SODIUM CHLORIDE 0.9% INJ 10 ML SYR IV SCH ×2 (04:44→17:18)
[2020-12-28 05:12] LABS: HEMATOCRIT 24.5 % (42.0-52.0); HEMOGLOBIN 7.9 g/dl (13.5-17.5); MEAN CORPUSCULAR HEMOGLOBIN 30.4 pg (27.0-33.0); MEAN CORPUSCULAR HGB CONC 32.2 g/dl (32.0-36.5); MEAN CORPUSCULAR VOLUME 94.2 fl (80.0-96.0); PLATELET COUNT, AUTOMATED 265 10^3/uL (150-450); WHITE BLOOD COUNT 21.8 10^3/uL (4.0-10.0)
[2020-12-28] MEDS: IPRATROPIUM 0.5MG/ALBUTEROL 2.5MG INH SOL UD 3ML (DUONEB) NEB SCH ×7 (05:26→23:31)
[2020-12-28 05:32] LABS: BLOOD UREA NITROGEN 24 MG/DL (7-18); CALCIUM LEVEL 6.9 MG/DL (8.8-10.2); CARBON DIOXIDE LEVEL 29 MEQ/L (21-32); CHLORIDE LEVEL 106 MEQ/L (98-107); CREATININE FOR GFR 0.79 MG/DL (0.70-1.30); GLOMERULAR FILTRATION RATE > 60.0 (>49); GLUCOSE, FASTING 81 MG/DL (70-100); POTASSIUM SERUM 3.9 MEQ/L (3.5-5.1); SODIUM LEVEL 138 MEQ/L (136-145)
[2020-12-28] MEDS: **hydrALAZINE HCL** 25 MG TAB PO SCH ×4 (06:00→22:00)
[2020-12-28] MEDS: LevoFLOXacin 750 MG TABLET PO SCH (06:08)
[2020-12-28] MEDS: SUCRALFATE SUSP 1GM/10ML UD PO SCH ×4 (07:30→22:01)
[2020-12-28] MEDS ORDERED: predniSONE 10 MG TAB PO ONE (08:05)
--- NOTE | 2020-12-28 08:16 | REP ---
INDICATION: ptx check resolution. COMPARISON: Multiple the latest yesterday at 8:05 a.m. TECHNIQUE: PA and lateral FINDINGS: The left-sided thoracotomy tube and PICC line catheter are unchanged. Left lower lobe patchy opacities with CP angle blunting status quo. Significant subcutaneous emphysema on the left status quo. No change in the cardiomediastinal silhouette or right lung. No change in the osseous structures. IMPRESSION: No significant change compared to the prior exam. <Electronically signed by Farooq Boyle > 12/28/20 1272
[2020-12-28] MEDS: amLODIPine 5 MG TAB PO SCH (09:00)
[2020-12-28] MEDS: PANTOPRAZOLE 40MG VIAL (C9113 PER 1) IV SCH (09:26)
[2020-12-28] MEDS: guaiFENesin ER 600 MG TAB PO SCH ×2 (09:27→22:01)
[2020-12-28] MEDS: hydrOXYzine 50 MG TAB PO SCH ×3 (09:27→22:01)
[2020-12-28] MEDS: TRIAMCINOLONE ACET 0.1% OINTMENT 80 GM TOP SCH ×2 (09:28→22:04)
--- NOTE | 2020-12-28 10:54 | IPN ---
PROGRESS NOTE DATE: 12/28/2020 SUBJECTIVE: Mr. Munson is sitting at his bedside. He states he feels well. No cough, fever or chills. No increase in shortness of breath. He denies any chest discomfort. He has a full body rash which is predominately on the trunk, macular papular, confluent, erythematous rash. He states he has had this since his blood transfusion. He has been in the hospital since 12/12/2020. He is admitted with a necrotizing pneumonia which advanced into a pneumothorax. He has a left anterior chest tube. There is no air leak this morning. There is minimal drainage over the past 24 hours, less than 50 mL. I therefore placed the patient off suction and will perform a chest x-ray in 2 hours. Off suction the patient continued to state that he feels well. OBJECTIVE: PHYSICAL EXAMINATION: VITAL SIGNS: Temperature is 98.1, pulse is 106, respiratory rate is 16, blood pressure is 114/56 with an oxygen saturation of 89% on one liter. GENERAL APPEARANCE: Awake, alert and oriented. Affect and mood are appropriate. Nutrition and hygiene are good. He is joking. Respiratory status appears rested. HEENT: Sclerae are clear and anicteric. Pupils are equal and reactive to light. Mucous membranes are moist without lesions. NECK: Supple. No jugular deviation or mass. LYMPH: No cervical or supraclavicular axillary adenopathy. CARDIAC: Tachycardic, S1, S2, without audible murmurs, rubs or gallops. No elevated JVP. No peripheral edema. PULMONARY: Clear breath sounds on the right side. On the left posterior lung field examination there are diffuse rales, no wheeze, few rhonchi. Left anterior chest wall has chest tube in place without surrounding erythema or exudate. ABDOMEN: Soft, nontender, nondistended, no hepatosplenomegaly, no masses or hernia. EXTREMITIES: No clubbing, cyanosis, or edema. SKIN: Diffuse macular papular rash over his entire trunk. This appears to be a severe drug reaction or less likely cutaneous Legionella. PICC line is in place without surrounding erythema or exudate. LABORATORY STUDIES: Laboratory evaluation shows a white blood cell count of 21.8. Hemoglobin is down to 7.9, platelet count of 265. Sodium is 138, potassium is 3.9, chloride is 106, bicarbonate 29, BUN of 24, creatinine of 0.79 with a platelet count of 81. IMAGING: Chest x-ray shows subcutaneous emphysema on the left. Chest tube is in place without evidence of pneumothorax. There continues to be consolidation on the left, minimal on the right. No evidence of effusion on the right. IMPRESSION: 1. Left sided necrotizing pneumonia related to Legionella. 2. Rash, possibility of drug rash. Less likely cutaneous Legionella. Recommend consulting I.D. or Dermatology. The patient may need workup for HIV and other immunocompromised states. 3. Pneumothorax: As far as the chest tube, will obtain chest x-ray in 2 hours when off suction to see if the pneumothorax re-accumulates. MTDD
[2020-12-28 10:59] LABS: HEMOGLOBIN 7.9 g/dl (13.5-17.5)
--- NOTE | 2020-12-28 12:17 | IPNPDOC ---
Date Seen The patient was seen on 12/28/20. Progress Note SUBJECTIVE: Persistent maculopapular rash but less pruritic denies any shortness of breath improving pneumothorax on repeat chest x-ray patient denies any hematemesis bright red blood per rectum melena or black tarry stools but decrease in hemoglobin this morning. He denies any chest pain pressure tightness lightheadedness or dizziness OBJECTIVE PHYSICAL EXAMINATION: VITAL SIGNS: Please see below. GENERAL: No pallor erythematous maculopapular rash on chest abdomen HEENT: No JVD moist mucous membranes no stridor CARDIOVASCULAR: S1-S2 no JVD thyromegaly RESPIRATORY: Coarse breath sounds diminished left-sided chest tube no wheezing ABDOMINAL: Positive bowel sounds soft nontender nondistended no rebound or guarding EXTREMITIES: 1+ edema bilateral lower extremities SKIN: maculopapular erythematous rash on chest abd LABORATORY DATA, IMAGING STUDIES, MICROBIOLOGY: Please see below. ASSESSMENT AND PLAN: 60-year-old with history of schizophrenia admitted for shortness of breath and treated for left lower lobe pneumonia but developed respiratory acidosis requiring noninvasive ventilation in the ICU which resolved transferred to PCU for the following acute issues. Acute hypoxic and hypercarbic respiratory failure requiring ICU admission and noninvasive ventilation, resolved Multifactorial secondary to necrotizing Legionella pneumonia bilaterally COPD exacerbation and secondary spontaneous pneumothorax from underlying emphysema Multilobar necrotizing pneumonia secondary to Legionella On Levaquin -will require prolonged course status post Zosyn day 10 and Vanco and azithromycin blood cultures negative ID consulted to comment on whether the patient's rash is likely secondary to Legionella Maculopapular rash -short 5 day course of prednisone -triamcinolone -atarax tid for comfort -no stridor or wheezing No improvement despite above management ID consulted to see if patient's rash is related to his Legionella Hypertension controlled on cardizem, norvasc, and hydralazine Human rhinovirus enteroviral infection Found on respiratory panel admission Acute COPD exacerbation,resolved on steroid taper and supplemental oxygen Levaquin for pneumonia secondary to Legionella inhaled bronchodilators Left spontaneous tension pneumothorax, chest tube 12/19/2020 on left chest /subcutaneous emphysema Managed by inflatable buildings laminator Dr. 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 If repeat x-ray today shows resolution, thoracotomy tube can be discontinued and patient may be discharged home soon. Paroxysmal atrial fibrillation Rate controlled on diltiazem On no anticoagulation secondary to ongoing GI bleed Acute GI blood loss/symptomatic anemia with heme positive stool Status post 5 units RBC transfusion Repeat hemoglobin today is 2 g lower we will recheck hemoglobin and transfuse On Protonix and Carafate Consulted GI Due to active Legionella pneumonia and COPD exacerbation no invasive procedures are planned Acute kidney injury Resolved Status post IV fluids Schizophrenia Controlled VS, I&O, 24H, Fishbone Vital Signs/I&O Vital Signs Date Time Temp Pulse Resp B/P (MAP) Pulse Ox O2 Delivery O2 Flow Rate FiO2 12/28/20 11:00 93 Room Air 12/28/20 09:00 106 114/56 12/28/20 08:00 98.1 16 1.0 I&O- Last 24 Hours up to 6 AM 12/28/20 06:00 Intake Total 1260 ml Output Total 310 ml Balance 950 ml Laboratory Data 24H LABS Laboratory Tests 2 12/28/20 04:57: Nucleated Red Blood Cells % (auto) 0.0, Anion Gap 3L, Glomerular Filtration Rate > 60.0, Calcium Level 6.9L CBC/BMP Laboratory Tests 12/28/20 04:57 12/28/20 10:39 Microbiology Microbiology 12/19/20 Stool Occult Blood (TAE) - Final, Complete JAMIE OROPEZA MD Dec 28, 2020 12:17
--- NOTE | 2020-12-28 13:20 | REP ---
INDICATION: pneumothorax COMPARISON: 12/28/2020, 7:40 a.m. TECHNIQUE: PA/Lateral FINDINGS: Left chest catheter is unchanged in position. There is no pneumothorax. Pleural and parenchymal opacity on the left is stable. Mild interstitial densities in the right lung base are stable. Air in the left chest wall is unchanged. A left arm PICC line is seen with the tip in the superior vena cava. The heart mediastinum are grossly unchanged. IMPRESSION: Stable exam. <Electronically signed by Weston Kaur > 12/28/20 2299
--- NOTE | 2020-12-28 15:19 | REP ---
INDICATION: pneumothorax COMPARISON: 12/28/2020 at 7:40 a.m. TECHNIQUE: PA and lateral. FINDINGS: Diffuse primarily left-sided subcutaneous emphysema and significant primarily left-sided pleuroparenchymal changes with left-sided pigtail catheter appear essentially stable and unchanged. No obvious underlying left pneumothorax identified. No obvious new acute process. Left PICC line with tip in the SVC remains stable. Visualized portions of the cardiac silhouette are stable and within normal limits. Skeletal structures are grossly intact. IMPRESSION: No significant change from prior examination. <Electronically signed by Nish Latham > 12/28/20 [id number]
[2020-12-28] MEDS: FUROSEMIDE 20MG/2ML VIAL (J1940) IV SCH ×2 (15:25→17:48)
[2020-12-28 18:42] LABS: IMMUNOGLOBULIN M 25.5 MG/DL (40-230)
[2020-12-28] MEDS ORDERED: diphenhydrAMINE 50MG/ML VIAL (J1200) IV PRN (19:45)
[2020-12-28] MEDS: SODIUM CHLORIDE 0.9% INJ 10 ML SYR IV PRN (20:32)
[2020-12-28] MEDS: RAMELTEON 8 MG TAB (ROZEREM) PO SCH (22:02)
[2020-12-29] MEDS: FUROSEMIDE 20MG/2ML VIAL (J1940) IV SCH ×2 (00:03)
[2020-12-29] MEDS: PANTOPRAZOLE 40MG VIAL (C9113 PER 1) IV SCH ×3 (00:04→21:05)
[2020-12-29 00:59] VITALS: BP 143/62
[2020-12-29 01:19] LABS: HEMATOCRIT 31.5 % (42.0-52.0)
[2020-12-29 01:22] LABS: HEMOGLOBIN 10.6 g/dl (13.5-17.5)
[2020-12-29] MEDS: IPRATROPIUM 0.5MG/ALBUTEROL 2.5MG INH SOL UD 3ML (DUONEB) NEB SCH ×6 (03:04→23:37)
[2020-12-29] MEDS: **hydrALAZINE HCL** 25 MG TAB PO SCH ×3 (05:12→21:07)
[2020-12-29] MEDS: LevoFLOXacin 750 MG TABLET PO SCH (05:13)
[2020-12-29] MEDS: SODIUM CHLORIDE 0.9% INJ 10 ML SYR IV SCH ×2 (05:13→17:57)
[2020-12-29 05:33] LABS: HEMATOCRIT 31.2 % (42.0-52.0); HEMOGLOBIN 10.6 g/dl (13.5-17.5); MEAN CORPUSCULAR HEMOGLOBIN 30.2 pg (27.0-33.0); MEAN CORPUSCULAR VOLUME 88.9 fl (80.0-96.0); PLATELET COUNT, AUTOMATED 231 10^3/uL (150-450); RED BLOOD COUNT 3.51 10^6/uL (4.30-6.10); WHITE BLOOD COUNT 15.1 10^3/uL (4.0-10.0)
[2020-12-29 05:51] LABS: BLOOD UREA NITROGEN 22 MG/DL (7-18); CALCIUM LEVEL 7.1 MG/DL (8.8-10.2); CARBON DIOXIDE LEVEL 31 MEQ/L (21-32); CHLORIDE LEVEL 107 MEQ/L (98-107); CREATININE FOR GFR 0.79 MG/DL (0.70-1.30); GLOMERULAR FILTRATION RATE > 60.0 (>49); GLUCOSE, FASTING 86 MG/DL (70-100); POTASSIUM SERUM 3.5 MEQ/L (3.5-5.1); SODIUM LEVEL 141 MEQ/L (136-145)
[2020-12-29 06:00] VITALS: BP 140/64
[2020-12-29] MEDS ORDERED: predniSONE 20 MG TAB PO ONE (08:05)
--- NOTE | 2020-12-29 08:18 | REP ---
INDICATION: ptx check resolution COMPARISON: 12/28/2020 TECHNIQUE: PA and lateral. FINDINGS: Left-sided chest tube has been removed. Left-sided PICC line in stable position. Subcutaneous emphysema and pleuroparenchymal changes (left greater than right) are relatively unchanged. No obvious new acute process appreciated. No obvious pneumothorax. IMPRESSION: 1. Status post left chest tube removal. 2. No significant pleuroparenchymal changes. Stable subcutaneous emphysema. No new acute process. <Electronically signed by Nish Latham > 12/29/20 0814
[2020-12-29 10:15] VITALS: O2SAT 91
[2020-12-29] MEDS: SUCRALFATE SUSP 1GM/10ML UD PO SCH ×4 (10:16→21:06)
[2020-12-29] MEDS: hydrOXYzine 50 MG TAB PO SCH ×3 (10:17→21:06)
[2020-12-29] MEDS: guaiFENesin ER 600 MG TAB PO SCH ×2 (10:17→21:06)
[2020-12-29] MEDS: TRIAMCINOLONE ACET 0.1% OINTMENT 80 GM TOP SCH ×2 (10:18→21:09)
--- NOTE | 2020-12-29 10:18 | IPN ---
PULMONARY PROGRESS NOTE DATE: 12/29/2020 SUBJECTIVE: Mr. Munson is doing well. He has no cough, fever or chills. He states he is breathing okay. Chest tube is out. He has had no recurrence of chest discomfort. Minimal chest wall crepitus. Chest tube was removed yesterday. PHYSICAL EXAMINATION: VITAL SIGNS: Temperature 98.0, pulse is 81, respiratory rate is 21, blood pressure is 140/64, oxygen saturation is 93% on room air. GENERAL: Awake, alert, oriented. Affect and mood are appropriate. Nutrition and hygiene are good. HEENT: Sclerae clear, anicteric. Pupils are equal, round and reactive to light. Mucous membranes moist without lesions. Neck supple. No tracheal deviation or mass. LYMPH: No cervical, supraclavicular, axillary adenopathy. CARDIAC: Regular. S1, S2. Without audible murmur, rub or gallop. No elevated jugular venous pulse (JVP). No peripheral edema. PULMONARY: Clear breath sounds on the right on the posterior lungs. There are a few rhonchi. Chest tube has been removed. There is some crepitus. ABDOMEN: Soft, nontender, nondistended. No hepatosplenomegaly, masses or hernias. EXTREMITIES: No cyanosis, clubbing or edema. SKIN: The macular rash is less raised. Continues to be over the entire trunk anterior and posterior. Peripherally inserted central catheter (PICC) line is in place without surrounding erythema or exudate. LABORATORY STUDIES: Shows that his white count is down to 15 from 21.8, hemoglobin 10.6, platelet count of 231. Sodium is 141, potassium is 3.5, chloride is 107, bicarbonate is 31, BUN of 22, creatinine of 0.79. Chest x-ray shows no significant change. No evidence of recurrence of the pneumothorax. There continues to be some subcutaneous emphysema on the left with residual pneumonia on the left. IMPRESSION: 1. Left-sided necrotizing pneumonia related to Legionella. The patient is doing better. Chest tube is out. 2. Rash. Possibly drug rash. Would continue to follow and ensure that this is improving over time. 3. Pneumothorax. Chest tube removed yesterday. No recurrence of pneumothorax. At this point in time, will sign off the case. If you have any questions or concerns, please feel free to call me back. I would be happy to participate in this patient's care again.
[2020-12-29] MEDS: amLODIPine 5 MG TAB PO SCH (10:19)
[2020-12-29 14:00] VITALS: BP 145/66
--- NOTE | 2020-12-29 19:41 | IPN ---
PROGRESS NOTE DATE: 12/29/2020 SUBJECTIVE: Patient complains of persistent pruritus of the rash on the chest, but improved with triamcinolone and Atarax, along with a short course of tapering prednisone. Patient denies any bright red blood per rectum, melena, black tarry stools, hematemesis or coffee-ground emesis despite decrease in hemoglobin and requirement of 3 units red blood cell (RBC) transfusion overnight. Pneumothorax has resolved and thoracotomy tube has been removed out of the left anterior chest. He denies any trouble breathing this morning or any chest pain. PHYSICAL EXAMINATION: VITAL SIGNS: Temperature 98, pulse 81, respiratory rate 21, blood pressure 154/70, 93% on room air. GENERAL: Patient is awake, alert, oriented to person, place and time. No respiratory distress. HEENT: No jugular venous distention (JVD) or thyromegaly. SKIN: Patient has improved erythema on the chest. Abdomen, pelvis and bilateral arms still pruritic lesions, maculopapular, non-raised, non-indurated. LUNGS: Diminished with crackles bilaterally. HEART: S1, S2. Irregularly irregular, but not tachycardic. ABDOMEN: Soft, nontender, nondistended. Positive bowel sounds. No rebound or guarding. EXTREMITIES: No cyanosis or clubbing. LABORATORY DATA: Laboratory data, imaging studies and microbiology have been reviewed. ASSESSMENT: This is a 60-year-old male with schizophrenia admitted for shortness of breath, treated for left lower lobe pneumonia, found to have Legionella, developed respiratory acidosis requiring bilevel positive airway pressure (BiPAP) and intensive care unit (ICU) and transferred to progressive care unit (PCU) initially and eventually to the medical/surgical floor. His hospitalization was complicated by chronic obstructive pulmonary disease (COPD) exacerbation with spontaneous pneumothorax from underlying emphysema requiring left-sided anterior chest thoracotomy tube with persistent air leak. This is now significantly improved and thoracotomy tube has been removed. Patient has developed a generalized maculopapular rash on chest, abdomen, pelvis and upper and lower extremities and has been given a short course of steroids, Atarax and triamcinolone. IMPRESSION: 1. Multi lobe necrotizing pneumonia secondary to Legionella. Generalized maculopapular rash could be an exanthem. 2. Hypertension. 3. Human rhinovirus/enterovirus infection. 4. Chronic obstructive pulmonary disease (COPD) exacerbation, resolved. 5. Tension pneumothorax status post thoracotomy tube 12/19/2020 with persistent air leak, now discontinued. 6. Paroxysmal atrial fibrillation. Could not be anticoagulated due to severe anemia. 7. Acute gastrointestinal (GI) blood loss. 8. Symptomatic anemia with Hemoccult positive stool status post 8 units red blood cell (RBC) transfusion. 9. Acute kidney injury. 10. Schizophrenia. PLAN: Due to severe pneumonia, hypoxic failure and pneumothorax, workup for GI bleed with esophagogastroduodenoscopy (EGD) or colonoscopy had to be postponed. He has been transfused a total of 8 units of red blood cells (RBCs) without any overt GI bleed. He is Hemoccult positive. Patient is improved significantly and thoracotomy tube has been removed. He is currently on a prolonged course of antibiotics for his Legionella pneumonia. For the patient's rash, mill tender second operator recommended infectious disease specialist, Dr. Ramos, to see the patient, who then recommended vest finisher to be consulted as well. The rash is improving on a short course of prednisone taper, Atarax and triamcinolone ointment. Due to recent drop in hemoglobin, patient did receive 3 extra units of red blood cells (RBCs) for a total of 8 units of red blood cells (RBCs) during this admission. Patient's hemoglobin and hematocrit will need to be monitored. Despite Hemoccult positive stools, a suspicion for hemolysis is high. Will do a hemolysis workup. Patient will be discharged after dermatology sees him on Thursday. [facility]
[2020-12-29 21:00] VITALS: O2SAT 93
[2020-12-29] MEDS: RAMELTEON 8 MG TAB (ROZEREM) PO SCH (21:06)
[2020-12-29] MEDS: SODIUM CHLORIDE 0.9% INJ 10 ML SYR IV PRN (21:06)
[2020-12-29 22:00] VITALS: BP 130/58
[2020-12-30] MEDS: IPRATROPIUM 0.5MG/ALBUTEROL 2.5MG INH SOL UD 3ML (DUONEB) NEB SCH ×6 (03:44→23:22)
[2020-12-30] MEDS: LevoFLOXacin 750 MG TABLET PO SCH (05:06)
[2020-12-30] MEDS: **hydrALAZINE HCL** 25 MG TAB PO SCH ×3 (05:07→21:41)
[2020-12-30] MEDS: SODIUM CHLORIDE 0.9% INJ 10 ML SYR IV SCH ×2 (05:08→17:49)
[2020-12-30 05:35] LABS: HEMATOCRIT 32.4 % (42.0-52.0); HEMOGLOBIN 11.1 g/dl (13.5-17.5); MEAN CORPUSCULAR HEMOGLOBIN 30.4 pg (27.0-33.0); MEAN CORPUSCULAR HGB CONC 34.3 g/dl (32.0-36.5); MEAN CORPUSCULAR VOLUME 88.8 fl (80.0-96.0); PLATELET COUNT, AUTOMATED 235 10^3/uL (150-450); RED BLOOD COUNT 3.65 10^6/uL (4.30-6.10); WHITE BLOOD COUNT 13.2 10^3/uL (4.0-10.0)
[2020-12-30 05:44] LABS: BLOOD UREA NITROGEN 27 MG/DL (7-18); CALCIUM LEVEL 7.1 MG/DL (8.8-10.2); CARBON DIOXIDE LEVEL 31 MEQ/L (21-32); CHLORIDE LEVEL 109 MEQ/L (98-107); CREATININE FOR GFR 0.79 MG/DL (0.70-1.30); GLOMERULAR FILTRATION RATE > 60.0 (>49); GLUCOSE, FASTING 94 MG/DL (70-100); POTASSIUM SERUM 3.8 MEQ/L (3.5-5.1); SODIUM LEVEL 142 MEQ/L (136-145)
[2020-12-30 06:00] VITALS: BP 137/63
[2020-12-30] MEDS ORDERED: predniSONE 10 MG TAB PO ONE (08:05)
[2020-12-30] MEDS: PANTOPRAZOLE 40MG VIAL (C9113 PER 1) IV SCH ×2 (08:10→21:39)
[2020-12-30] MEDS: SUCRALFATE SUSP 1GM/10ML UD PO SCH ×4 (08:10→21:40)
[2020-12-30] MEDS: guaiFENesin ER 600 MG TAB PO SCH ×2 (08:10→21:40)
[2020-12-30] MEDS: amLODIPine 5 MG TAB PO SCH (08:13)
[2020-12-30] MEDS: TRIAMCINOLONE ACET 0.1% OINTMENT 80 GM TOP SCH ×2 (08:17→21:41)
[2020-12-30] MEDS: SODIUM CHLORIDE 0.9% INJ 10 ML SYR IV PRN ×2 (08:17→21:42)
[2020-12-30 08:25] VITALS: BP 143/60
[2020-12-30 09:02] LABS: ABG BASE EXCESS 3.3 (-2.0-2.0); ABG HCO3 27.3 MEQ/L (22.0-26.0); ABG O2 SATURATION 96.8 % (95.0-99.0); ABG PARTIAL PRESSURE CO2 39.5 mmHg (35.0-45.0); ABG PARTIAL PRESSURE O2 84.7 mmHg (75.0-100.0); ABG STANDARD HCO3 27.4 MEQ/L (22.0-26.0); ABG TOTAL CO2 28.5 MEQ/L (23.0-31.0); ABG pH (ARTERIAL) 7.458 UNITS (7.350-7.450)
[2020-12-30] MEDS ORDERED: ISOVUE-370 76% 100ML VIAL As Ordered ONE (09:03)
[2020-12-30 09:41] LABS: C REACTIVE PROTEIN QUANTITATIV 7.24 MG/DL (0.00-0.30); MAGNESIUM LEVEL 1.7 MG/DL (1.8-2.4)
--- NOTE | 2020-12-30 09:41 | REP ---
INDICATION: recent ptx hypoxic tachycardic COMPARISON: 12/24/2020 TECHNIQUE: Axial contrast enhanced images from the thoracic inlet to the upper abdomen using pulmonary embolus technique with multiplanar re-formations. 75 ml Isovue 370 intravenous contrast material administered without complication. This CT examination was performed using the following dose reduction techniques: Automated exposure control, adjustment of mA and/or kv according to the patient's size, and use of iterative reconstruction technique. FINDINGS: No obvious pulmonary embolus is identified. Thoracic aorta is stable with mild atherosclerotic changes again noted but no evidence for aneurysm or dissection. Atherosclerotic changes to the coronary arteries noted without cardiomegaly or pericardial effusion. There is no evidence for pneumothorax. Significant subcutaneous emphysema involves the left hemithorax and appears improved from prior examination. A small amount of residual pneumomediastinum is identified and appears improved as well. There is a moderate left pleural effusion with small scattered non dependent foci of gas raising the possibility of complex pleural fluid and possible forming empyema. A very small amount of right-sided pleural fluid is identified. Patchy ill-defined primarily left-sided airspace disease and scattered left sided atelectasis along with minimal right-sided atelectasis is identified which appear somewhat increased from prior examination. Tracheobronchial tree is patent and grossly normal. Few scattered reactive mediastinal lymph nodes are identified. Osseous structures are stable/intact. Upper abdomen demonstrates normal bilateral adrenal glands. IMPRESSION: 1. No left pneumothorax. 2. Moderate complex left pleural effusion with scattered small foci of nondependent gas raising the possibility of complex pleural fluid/forming empyema. 3. Increased amounts of patchy ill-defined left-sided airspace disease and atelectasis along with new minimal right-sided atelectasis and small right pleural fluid. <Electronically signed by Nish Latham > 12/30/20 0955
--- NOTE | 2020-12-30 09:41 | REP ---
INDICATION: small tension ptx s/p chest tube COMPARISON: 12/29/2020 TECHNIQUE: PA and lateral. FINDINGS: Bilateral pleuroparenchymal changes (left greater than right) are essentially stable. No obvious new acute process identified. No obvious residual pneumothorax. IMPRESSION: Stable pleuroparenchymal changes. <Electronically signed by Nish Latham > 12/30/20 0990
[2020-12-30] MEDS ORDERED: diphenhydrAMINE 50MG/ML VIAL (J1200) IV PRN (09:55)
[2020-12-30] MEDS ORDERED: diphenhydrAMINE 50MG/ML VIAL (J1200) IV ONE (10:00)
--- NOTE | 2020-12-30 10:23 | IPNPDOC ---
Date Seen The patient was seen on 12/30/20. Progress Note Subjective: RN called regarding tachypnea and tachycardia respiratory rate of 40 in distress. Chest x-ray CT chest to rule out pneumothorax negative patient denies any shortness of breath respiratory distress improved. No chest pain pressure he only complains of insomnia and pruritus on the rash on his face and scalp PHYSICAL EXAMINATION: VITAL SIGNS: See below GENERAL: Maculopapular rash generalized scalp face chest abdomen bilateral upper and lower extremities currently no distress no pallor icterus no use of respiratory accessory muscles HEENT: No jugular venous distention (JVD) or thyromegaly. SKIN: Patient has improved erythema on the chest. Abdomen, pelvis and bilateral arms still pruritic lesions, maculopapular, non-raised, non-indurated. LUNGS: Diminished breath sounds HEART: S1, S2. Irregularly irregular, but not tachycardic. ABDOMEN: Soft, nontender, nondistended. Positive bowel sounds. No rebound or guarding. EXTREMITIES: No cyanosis or clubbing. LABORATORY DATA: Laboratory data, imaging studies and microbiology have been reviewed. ASSESSMENT: This is a 60-year-old male with schizophrenia admitted for shortness of breath, treated for left lower lobe pneumonia, found to have Legionella, developed respiratory acidosis requiring bilevel positive airway pressure (BiPAP) and intensive care unit (ICU) and transferred to progressive care unit (PCU) initially and eventually to the medical/surgical floor. His hospitalization was complicated by chronic obstructive pulmonary disease (COPD) exacerbation with spontaneous pneumothorax from underlying emphysema requiring left-sided anterior chest thoracotomy tube with persistent air leak. This is now significantly improved and thoracotomy tube has been removed. Patient has developed a generalized maculopapular rash on chest, abdomen, pelvis and upper and lower extremities and has been given a short course of steroids, Atarax and triamcinolone. IMPRESSION: 1. Multi lobe necrotizing pneumonia secondary to Legionella. Generalized maculopapular rash could be an exanthem. 2. Hypertension. 3. Human rhinovirus/enterovirus infection. 4. Chronic obstructive pulmonary disease (COPD) exacerbation, resolved. 5. Tension pneumothorax status post thoracotomy tube 12/19/2020 with persistent air leak, now discontinued. 6. Paroxysmal atrial fibrillation. Could not be anticoagulated due to severe anemia. 7. Acute gastrointestinal (GI) blood loss. 8. Symptomatic anemia with Hemoccult positive stool status post 8 units red blood cell (RBC) transfusion. 9. Acute kidney injury. 10. Schizophrenia. PLAN: Repeat CT chest chest x-ray this morning shows no recurrence of the tension pneumothorax. Patient says states that he is not short of breath nor does he have any pleuritic chest pain. He is maintained on Levaquin for treatment of his Legionella pneumonia. Due to prolonged QT on EKG patient could not be given Atarax for comfort due to generalized maculopapular rash That is being treated with tapering dose of prednisone, Benadryl, triamcinolone on the body, Benadryl topically on the face and scalp. Due to Legionella, patient has been worked up for immunocompromise state with immunoglobulins and complement levels HIV and hepatitis C tests. ID consulted. Dermatology to be consulted on Thursday. Since the patient has no acute pneumothorax pulmonary has signed off. Patient is anemia has been treated with 8 units RBC transfusion Protonix and Carafate. GI was on consult Dr. Pruett, but no acute intervention Due to recent pneumothorax and Legionella pneumonia which is just resolving. Patient denies any bright red blood per rectum melena or black tarry stools. Hemoglobin remained stable. VS, I&O, 24H, [facility] Vital Signs/I&O Vital Signs Date Time Temp Pulse Resp B/P (MAP) Pulse Ox O2 Delivery O2 Flow Rate FiO2 12/30/20 09:25 24 93 Room Air 12/30/20 08:39 2.0 12/30/20 08:25 98.1 84 143/60 (87) I&O- Last 24 Hours up to 6 AM 12/30/20 06:00 Intake Total 1730 ml Output Total 0 ml Balance 1730 ml Laboratory Data 24H LABS Laboratory Tests 2 12/29/20 16:29: 12/30/20 05:13: Nucleated Red Blood Cells % (auto) 0.0, Anion Gap 2L, Glomerular Filtration Rate > 60.0, Calcium Level 7.1L, Magnesium Level 1.7L, C-Reactive Protein, Quantitative 7.24H 12/30/20 08:55: Blood Gas Bicarbonate Standard 27.4H, Arterial Blood pH 7.458H, Arterial Blood Partial Pressure CO2 39.5, Arterial Blood Partial Pressure O2 84.7, Arterial Blood Total CO2 28.5, Arterial Blood HCO3 27.3H, Arterial Blood Base Excess 3.3H, Arterial Blood Oxygen Saturation 96.8 CBC/BMP Laboratory Tests 12/30/20 05:13 JAMIE OROPEZA MD Dec 30, 2020 10:23
[2020-12-30] MEDS ORDERED: MAG SULF 1GM/100ML (MAG RUN) 1 GM in IV 1 EA IV ONE (11:00)
[2020-12-30] MEDS ORDERED: hydrOXYzine 50 MG TAB PO SCH (12:00)
[2020-12-30] MEDS: diphenhydrAMINE CREAM 30GM TOP SCH ×2 (12:21→21:00)
[2020-12-30 14:00] VITALS: BP 154/75
[2020-12-30 15:28] VITALS: O2SAT 93
[2020-12-30 21:00] VITALS: O2SAT 91
[2020-12-30] MEDS: RAMELTEON 8 MG TAB (ROZEREM) PO SCH (21:40)
[2020-12-30 22:00] VITALS: BP 157/77
[2020-12-31] MEDS: IPRATROPIUM 0.5MG/ALBUTEROL 2.5MG INH SOL UD 3ML (DUONEB) NEB SCH ×4 (03:43→15:17)
[2020-12-31] MEDS: LevoFLOXacin 750 MG TABLET PO SCH (05:17)
[2020-12-31] MEDS: **hydrALAZINE HCL** 25 MG TAB PO SCH (05:18)
[2020-12-31] MEDS: SODIUM CHLORIDE 0.9% INJ 10 ML SYR IV SCH ×2 (05:20→18:00)
[2020-12-31 05:32] LABS: HEMATOCRIT 34.7 % (42.0-52.0); HEMOGLOBIN 11.5 g/dl (13.5-17.5); MEAN CORPUSCULAR HEMOGLOBIN 29.6 pg (27.0-33.0); MEAN CORPUSCULAR HGB CONC 33.1 g/dl (32.0-36.5); MEAN CORPUSCULAR VOLUME 89.4 fl (80.0-96.0); PLATELET COUNT, AUTOMATED 201 10^3/uL (150-450); RED BLOOD COUNT 3.88 10^6/uL (4.30-6.10); WHITE BLOOD COUNT 10.5 10^3/uL (4.0-10.0)
[2020-12-31 05:55] LABS: ERYTHROCYTE SEDIMENTATION RATE 58 mm/hr (0-20)
[2020-12-31 06:00] VITALS: BP 171/89
[2020-12-31 06:04] LABS: BLOOD UREA NITROGEN 22 MG/DL (7-18); C REACTIVE PROTEIN QUANTITATIV 3.25 MG/DL (0.00-0.30); CARBON DIOXIDE LEVEL 33 MEQ/L (21-32); CHLORIDE LEVEL 108 MEQ/L (98-107); CREATININE FOR GFR 0.77 MG/DL (0.70-1.30); GLOMERULAR FILTRATION RATE > 60.0 (>49); GLUCOSE, FASTING 81 MG/DL (70-100); POTASSIUM SERUM 3.8 MEQ/L (3.5-5.1); SODIUM LEVEL 141 MEQ/L (136-145)
--- NOTE | 2020-12-31 08:46 | CR.PDOC ---
General Date of Consultation: Dec 31, 2020 Referring Provider: JAMIE OROPEZA MD Consultation REASON FOR CONSULTATION/CHIEF COMPLAINT: teledermatology - rash . HISTORY OF PRESENT ILLNESS: 60-year-old male with schizophrenia admitted for shortness of breath, treated for left lower lobe pneumonia, found to have Legionella, developed respiratory acidosis requiring bilevel positive airway pressure (BiPAP) and intensive care unit (ICU) and transferred to progressive care unit (PCU) initially and eventually to the medical/surgical floor. His hospitalization was complicated by chronic obstructive pulmonary disease (COPD) exacerbation with spontaneous pneumothorax from underlying emphysema requiring left-sided anterior chest thoracotomy tube with persistent air leak. This is now significantly improved and thoracotomy tube has been removed. Patient has developed a generalized maculopapular rash on chest, abdomen, pelvis and upper and lower extremities and has been given a short course of steroids, Atarax and triamcinolone. Patient reports the rash is much improved today with alleviation of pruritus and a reduction in rash burden. Patient with + enterovirus/rhinovirus. ALLERGIES: Please see below. HOME MEDICATIONS: Please see below. PHYSICAL EXAMINATION: VITAL SIGNS: Please see below. GENERAL APPEARANCE: . Teledermatology: asynchronous images were reviewed and augmented in conjunction with nursing assistance for history review and positive and negative pertinent findings. LABORATORY DATA: Please see below. ASSESSMENT/PLAN: 1. Urticarial Rash The patient is demonstrating an urticarial rash concentrated on the posterior upper arms, back, and flanks with varying degrees of dermal edema and erythema. Patient denied any signs of angioedema to include swelling or the oral mucosa and trouble breathing related to swelling (complex respiratory picture). Urticarial rashes are common in the hospitalized patient and can be attributed to a number of reasons. The most common causes of a new-onset urtcaria include medications and viral infections (for which he is positive). Common medication culprits include NSAIDs, GUERA-inhibitors, vancomycin (causes direct Mast cell activation), narcotics. Serum sickness could also be a consideration in the setting of polyarthralgia or polyarthritis. I would recommend factoring these considerations into your decision making process with the understanding that Mr. Munson is improving on your current regimen and that the majority of urticarial rashes can be managed with oral antihistamines and topical corticosteroids with corticosteroids at the ready should there become systemic signs of angioedema. My preferred regimen is ceterizine 10mg 3-4 times daily and hydroxyxine 25mg at bedime to minimize day time drowsiness. Topical betamethasone diproprionate 0.05% cream or ointment applied 2-3 times daily to rash will also provide relief. If this rash should severely worsen or evolve, please don't hesitate to touch base again. Dr. Navarro Vital Signs/I&O Vital Signs Date Time Temp Pulse Resp B/P (MAP) Pulse Ox O2 Delivery O2 Flow Rate FiO2 12/31/20 06:00 98.0 91 18 171/89 (116) 92 Room Air 12/30/20 08:39 2.0 I&O- Last 24 Hours up to 6 AM 12/31/20 06:00 Intake Total 1680 ml Output Total 0 ml Balance 1680 ml Laboratory Data Labs 24H Laboratory Tests 2 12/30/20 08:55: Blood Gas Bicarbonate Standard 27.4H, Arterial Blood pH 7.458H, Arterial Blood Partial Pressure CO2 39.5, Arterial Blood Partial Pressure O2 84.7, Arterial Blood Total CO2 28.5, Arterial Blood HCO3 27.3H, Arterial Blood Base Excess 3.3H, Arterial Blood Oxygen Saturation 96.8 12/31/20 05:24: Nucleated Red Blood Cells % (auto) 0.0, Erythrocyte Sedimentation Rate 58H, Anion Gap 0L, Glomerular Filtration Rate > 60.0, Calcium Level 7.0L, C-Reactive Protein, Quantitative 3.25H CBC/BMP Laboratory Tests 12/31/20 05:24 Allergies Coded Allergies: strawberry (Verified Allergy, Unknown, 12/12/20) tuberculin, purified protein deriva (Verified Allergy, Unknown, 12/12/20) Home Medications No Active Prescriptions or Reported Meds TOM NAVARRO MD Dec 31, 2020 08:46
--- NOTE | 2020-12-31 08:51 | REP ---
INDICATION: ptx check resolution COMPARISON: 12/30/2020 TECHNIQUE: PA and lateral. FINDINGS: Comparison with prior examination demonstrates no significant change. Continued primarily left-sided subcutaneous emphysema as well as primarily left-sided pleuroparenchymal changes. No obvious pneumothorax identified. No new acute process appreciated. IMPRESSION: No significant change from prior examination. <Electronically signed by Nish Latham > 12/31/20 0880
[2020-12-31] MEDS: diphenhydrAMINE CREAM 30GM TOP SCH (09:00)
[2020-12-31] MEDS: PANTOPRAZOLE 40MG VIAL (C9113 PER 1) IV SCH (09:11)
[2020-12-31] MEDS: SUCRALFATE SUSP 1GM/10ML UD PO SCH ×3 (09:11→18:02)
[2020-12-31] MEDS: guaiFENesin ER 600 MG TAB PO SCH (09:11)
[2020-12-31] MEDS: amLODIPine 5 MG TAB PO SCH (09:11)
[2020-12-31] MEDS ORDERED: SUCR1ORA PO (11:26)
[2020-12-31] MEDS ORDERED: LEVO750T13 PO (11:26)
[2020-12-31] MEDS ORDERED: CARD120C3 PO (11:26)
[2020-12-31] MEDS ORDERED: PANT40TA29 PO (11:27)
[2020-12-31] MEDS ORDERED: HYDR-3363 PO (11:30)
[2020-12-31] MEDS ORDERED: CETI10CH PO (11:30)
[2020-12-31] MEDS ORDERED: AUGM0.05 TOP (11:30)
[2020-12-31] MEDS ORDERED: BACI1CAP PO (11:32)
[2020-12-31] MEDS ORDERED: MUCI600T31 PO (11:32)
[2020-12-31] MEDS ORDERED: amLODIPine 5 MG TAB PO ONE (11:45)
[2020-12-31 13:11] VITALS: BP 137/69
[2020-12-31 14:00] VITALS: BP 135/70
--- NOTE | 2020-12-31 14:17 | DSES ---
DISCHARGE SUMMARY DATE OF ADMISSION: 12/12/2020 DATE OF DISCHARGE: 12/31/2020 CONSULTANTS DURING THIS ADMISSION: 1. Infectious disease specialist Pearl Ramos MD. 2. Development And Planning Engineer Randell Pate DO, [facility] and Lakhwinder Boyer MD. 3. Safety Person Alessandro Navarro MD, FAAD. PRIMARY DISCHARGE DISAGNOSES: 1. 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 2. Sepsis secondary to Legionella pneumonia. 3. Hypertension. 4. Human rhinovirus/enterovirus infection. 5. COPD exacerbation. 6. Tension pneumothorax status post thoracotomy tube 12/19/2020 with persistent air leak. 7. Paroxysmal atrial fibrillation. 8. Acute GI blood loss requiring 8 units of RBC transfusion. 9. Symptomatic anemia with heme-positive stool unable to obtain an EGD, colonoscopy due to respiratory distress from necrotizing pneumonia from Legionella. 10. Acute kidney injury. 11. Schizophrenia. 12. Generalized maculopapular rash most likely a drug rash. DISCHARGE MEDICATIONS: 1. Levaquin 750 daily for 7 days. 2. Bacid 1 cap with meals and at bedtime for 7 days. 3. Protonix 40 twice a day. 4. Carafate 1 gram before meals and at bedtime. 5. Hydroxyzine 25 at bedtime. 6. Mucinex 600 twice a day. 7. Diltiazem 120 every morning. 8. Cetirizine 10 four times a day. 9. Betamethasone topically three times a day. DISCHARGE INSTRUCTIONS: 1. Patient is to be referred by primary care physician to a telephone worker after clearance from pulmonology regarding the multilobar pneumonia to obtain an EGD and colonoscopy to further evaluate patient's GI bleed. 2. Primary care physician appointment Dr. Ramos, Dr. Navarro and Dr. Pate within 7 days. HISTORY AND HOSPITAL COURSE: This is a 60-year-old male with schizophrenia admitted due to complaints of shortness of breath that was found to have multilobar necrotizing pneumonia secondary to Legionella and developed acute respiratory acidosis requiring BiPAP therapy in the ICU complicated by a spontaneous tension pneumothorax requiring thoracotomy tube placement with persistent air leakage managed by supervisor metal furniture assembly Dr. Lakhwinder Boyer. Patient was also found to have rhinovirus and enteroviral infection on admission and a COPD exacerbation. He was treated with I.V. Solu-Medrol, albuterol treatments for the COPD exacerbation, started on Zosyn in the ICU and continued on vancomycin. MRSA screen was negative. Legionella became available and was positive. He was changed over to azithromycin. He had afib with RVR with heme-positive stool and was given Cardizem 30 mg q6h. Patient's hemoglobin dropped down to 7, was transfused 5 units of blood with no overt GI bleed. Due to respiratory distress patient was not cleared for EGD and colonoscopy. Dr. Pruett was consulted, but no studies were done, no EGD or colonoscopy. He had episodes of hypertensive urgency treated with hydralazine and labetalol intravenous q6h in the ICU. CT abdomen and pelvis was performed to monitor heme-positive stools and severe anemia. There was wall thickening in the descending colon and sigmoid colon nonspecific, but could be infectious or inflammatory. Patient's thoracotomy tube was managed by supervisor metal furniture assembly Dr. Lakhwinder Boyer with persistent air leak. A PICC line was placed on 12/24/2020, he was continued on I.V. Zosyn and transitioned to Levaquin 750 daily on 12/25/2020 to 01/01/2021. Blood cultures remained negative. Heme-positive stool. On 12/28/2020 he developed another episode of severe anemia at 7.9, transfused 3 more units of RBCs, kept on Protonix 40 twice a day and Carafate 1 gram before meals and at bedtime with resultant stabilization of hemoglobin at 11.1 to 11.5 on discharge. Patient developed a maculopapular generalized rash and was given a short course of prednisone, triamcinolone, Benadryl topically. This was evaluated by Dr. Navarro mill attendant who felt that the patient would improve on cetrizine 10 four times daily, betamethasone topically and Atarax at night. Dr. Ramos was consulted to check for immunodeficiency due to Legionella. Patient did have low compliment levels IgG and IgM as well as HIV was checked and hepatitis both of which were pending on discharge. Patient did have episodes of loose stools, but were negative for Clostridium difficile infection. PHYSICAL EXAMINATION ON DISCHARGE: Temperature 98, pulse 89, respiratory rate 18, blood pressure 178/92, 92% on room air. General: Patient is awake, alert, oriented to person, place and time. Skin: He has a diffuse maculopapular rash on the face, bilateral upper extremities, chest, back, abdomen. Lungs: He has no stridor on exam, no wheezing. Lungs have crackles bilaterally. No use of respiratory accessory muscles. Neck: No JVD. Heart: S1 and S2 irregularly irregular, but not tachycardic. Abdomen: Soft, nontender, nondistended, positive bowel sounds. Extremities: No cyanosis, clubbing or putting edema. LABORATORY DATA: Laboratory data and microbiology please see the chart. IMAGING STUDIES: Please see the chart. Time spent on discharge: Thirty minutes. MTDD
[2020-12-31 15:14] LABS: HEPATITIS C VIRUS ABY INDEX < 0.0 INDEX (<0.8); HIV 1&2 SCREEN CENTAUR NEGATIVE (NEGATIVE)
--- NOTE | 2020-12-31 19:07 | CR ---
CONSULTATION DATE: 12/31/2020 REASON FOR CONSULTATION: I was asked to consult by Laurel Nichols MD for evaluation of immunodeficiency in a patient with severe necrotizing pneumonia. HISTORY OF PRESENT ILLNESS: Philippe is a 60-year-old gentleman with a history of schizophrenia who presented to the emergency room on December 12 with complaint of cough, chills, generalized joint pain, myalgias, rhinorrhea and chest congestion with respiratory distress. The patient in the emergency room had significant respiratory distress. He had a white count of 35,000 with CRP of 36.7. The patient was placed on BiPAP. He received IV fluid and was on prednisone. He initially received IV Zosyn with Zithromax for seven days from 12/12 to 12/23. He was then switched to Levaquin after seven days of combination Zosyn and Zithromax to treat with Legionnaire pneumonia. He had a negative urine Legionnaire antigen but positive antibodies. The patient had a history of tobacco abuse but quit over five years ago. He developed a pneumothorax on the left side and had a chest tube placed by Dr. Pate. He then developed a rash which was not pleuritic but diffuse maculopapular over his entire torso. He states it was not pruritic but very erythematous. PAST MEDICAL HISTORY: 1. Schizophrenia. 2. History of tobacco abuse, quit 5 years ago. PAST SURGICAL HISTORY: Right knee surgery. SOCIAL HISTORY: He is single. He does not have a significant other. He lives with his mother at home. He quit smoking five years ago. He denies alcohol or drug use. FAMILY HISTORY: Nonrevealing. ALLERGIES: PPD AND STRAWBERRIES. LABORATORY DATA: White count on admission was 35.3. Currently white count is 10.5, hemoglobin 11.5, hematocrit 34.7, platelets 201, ESR 58. Sodium 141, potassium 3.8, chloride 108, bicarb 33, BUN and creatinine 0.77, glucose 81, calcium 7, magnesium 1.7. CRP on admission was 36.7, on 12/26 was 0.97, 12/30 7.24 and currently 3.35. Blood culture, one set was done 12/12, negative. Respiratory panel was rhinovirus. Urine culture was negative. Blood culture, two sets, were negative and stool Hemoccult was positive. C. diff toxin done on 12/22 was negative hepatitis C, negative HIV, negative Legionnaire IgG with 1:56. IgM was 1:64, Mycoplasma IgG 178. respiratory panel was negative. MRSA screen was negative. Urine Legionnaire antigen and pneumococcal antigen were negative. Angiography, CT of chest done on 12/30 shows a necrotizing infection, no obvious pulmonary embolism. No evidence of pneumothorax or aneurysm. Moderate complex left pleural effusion with scattered foci of nondependent gas. Increase in the patchy, ill-defined infiltrates on the left side. Chest CT done on 12/19 shows a left thoracotomy tube, left pneumothorax over the apex of the left lung with infiltrate in the left upper lobe, lingula and left lower lobe. Subcutaneous emphysema noted. PHYSICAL EXAMINATION: General: He is a healthy looking gentleman in no acute distress. Vital Signs: Temperature is 97.9, pulse 77, respirations 18, blood pressure 135/70, O2 sat 97% on room air. Heart: Normal S1, S2, no murmurs, rubs or gallops appreciated. Lungs: Diminished breath sounds at the bases with a few crackles at the left side. The tape from the chest tube was removed and incision sites are completely healed with no subcutaneous emphysema. Abdomen: Soft, nontender, no hepatosplenomegaly. Extremities: No clubbing, cyanosis or edema. HEENT: Oropharynx is clear with poor dentition. Skin with diffuse maculopapular rash, faint in color, more darkish, faint, purple in color, nonpruritic blanching. MEDICATIONS: 1. Amlodipine 10 mg daily. 2. Pantoprazole 40 mg b.i.d. 3. Diltiazem 120 mg daily. 4. Benadryl as need for rash. 5. Percocet one tablet q.6 p.r.n. 6. Levofloxacin 750 mg p.o. daily. 7. Carafate 1 gm p.o. a.c. and h.s. 8. Tessalon Perles as needed. 9. Guaifenesin, Mucinex 600 mg p.o. b.i.d. IMPRESSION: This is a 60-year-old gentleman admitted with necrotizing pneumonia of the left chest. No sputum culture was obtained. The patient was treated with Zosyn and Zithromax followed by Levofloxacin. The only positive identification was a Legionnaire IgM and IgG that were positive even though the urine Legionnaire antigen was negative. 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 PLAN; Due to severe necrotizing infection with pneumothorax, the patient will be treated with another week of antibiotics, continue levofloxacin with a total of three weeks of antibiotics. The patient will be discharged home today. Workup of immunodeficiency includes an IgG level of 607 which is slightly low, IgM 25 also slightly low and IgA is 392. Complement levels are normal. Even with a low IgG, the patient would not need immunoglobulin unless there are less than 500 with recurrent infection. This is his first pneumonia and hospitalization. We will repeat outpatient work, immunoglobulin level on hospital followup. CY
[2020-12-31] MEDS ORDERED: PANTOPRAZOLE 40MG TAB (PROTONIX) PO SCH (21:00)
== END 2020-12-31 18:00 | disposition home health service (06) | DRG 137 ==
LOC: M ED 15:40 → M ED INP 17:28 → ENRESERV 18:15 → M ICU 19:48 → M PCU 12-22 14:44 → M MSPAV 12-28 18:30 → M ICU 12-30 08:58 → M MSPAV 12-30 09:02 → M ICU 12-30 09:03 → M MSPAV 12-30 09:30
PROVIDERS: ADMIT Internal Medicine; ATTEND General Practice
PROC: 30233N1 Transfusion of Nonautologous Red Blood Cells into Peripheral Vein, Percutaneous Approach (ICD-10-PCS; principal; 2020-12-19)
PROC: 0W9B30Z Drainage of Left Pleural Cavity with Drainage Device, Percutaneous Approach (ICD-10-PCS; 2020-12-19)
PROC: 02HV33Z Insertion of Infusion Device into Superior Vena Cava, Percutaneous Approach (ICD-10-PCS; 2020-12-24)
DX: A48.1 Legionnaires' disease (principal); J96.01 Acute respiratory failure with hypoxia; J93.0 Spontaneous tension pneumothorax; J85.0 Gangrene and necrosis of lung; N17.9 Acute kidney failure, unspecified; E87.2 Acidosis; D62 Acute posthemorrhagic anemia; J96.02 Acute respiratory failure with hypercapnia; I48.0 Paroxysmal atrial fibrillation; F20.9 Schizophrenia, unspecified; K92.2 Gastrointestinal hemorrhage, unspecified; I10 Essential (primary) hypertension; J44.1 Chronic obstructive pulmonary disease with (acute) exacerbation; Z79.899 Other long term (current) drug therapy; B97.89 Other viral agents as the cause of diseases classified elsewhere; I16.0 Hypertensive urgency; F17.210 Nicotine dependence, cigarettes, uncomplicated; Z91.018 Allergy to other foods; Z88.7 Allergy status to serum and vaccine

== ENCOUNTER 2023-08-08 19:25 | Emergency (ER) | payer MEDICAID, OTHER ==
[~2023-08-08] VITALS: Ht 177.8 cm; Wt 77.6 kg
[~2023-08-08 19:25] MED LIST: AUGM0.05 TOP; BACI1CAP PO; CARD120C3 PO; CETI10CH PO; HYDR-3363 PO; LEVO1TAB40 PO; MUCI600T31 PO; PANT40TA29 PO; SUCR1ORA PO
[2023-08-08 20:23] LABS: CK-MB VALUE MASS 141.6 NG/ML (<3.6)
[2023-08-08 20:24] LABS: BLOOD UREA NITROGEN 27 MG/DL (9-23); CALCIUM LEVEL 9.2 MG/DL (8.3-10.6); CARBON DIOXIDE LEVEL 29 MMOL/L (20-31); CHLORIDE LEVEL 106 MMOL/L (98-107); CREATININE FOR GFR 0.85 MG/DL (0.70-1.30); GLOMERULAR FILTRATION RATE > 60.0 (>49); GLUCOSE, FASTING 114 MG/DL (74-106); POTASSIUM SERUM 4.3 MMOL/L (3.5-5.1); SODIUM LEVEL 140 MMOL/L (136-145)
[2023-08-08 20:26] LABS: HEMATOCRIT 45.8 % (42.0-52.0); LYMPH % 18.1 % (24.0-44.0); MEAN CORPUSCULAR HEMOGLOBIN 30.4 pg (27.0-33.0); MEAN CORPUSCULAR HGB CONC 32.8 g/dl (32.0-36.5); MEAN CORPUSCULAR VOLUME 92.9 fl (80.0-96.0); NEUTROPHILS % 71.5 % (36.0-66.0); PLATELET COUNT, AUTOMATED 313 10^3/uL (150-450); RED BLOOD COUNT 4.93 10^6/uL (4.30-6.10); WHITE BLOOD COUNT 11.6 10^3/uL (4.0-10.0)
[2023-08-08 20:27] LABS: BASO # 0.1 10^3/uL (0.0-0.2); BASO % 0.6 % (0.0-1.0); EOS # 0.1 10^3/uL (0.0-0.5); EOS % 0.9 % (0.0-3.0); LYMPH # 2.1 10^3/uL (1.5-5.0); MONO % 8.6 % (2.0-8.0); NEUTROPHILS # 8.3 10^3/uL (1.5-8.5)
[2023-08-08 20:28] LABS: CPK CREATINE PHOSPHOKINASE 901 U/L (46-171); MB/CK RELATIVE INDEX 15.71 (< OR =4)
[2023-08-08] MEDS: CLOPIDOGREL 300 MG TAB (PLAVIX) PO STA (20:54)
[2023-08-08] MEDS: ASPIRIN 81MG CHEW TABLET PO ONE (20:54)
[2023-08-08] MEDS: NITROGLYCERIN/D5W 100MCG/ML 25 MG in IV 1 EA IV SCH (20:55)
[2023-08-08] MEDS ORDERED: HEPARIN SOD (PORCINE) 5000UNITS/ML 1ML VIAL/SYRINGE IV PRN (21:00)
[2023-08-08 21:06] LABS: INR 1.02; PARTIAL THROMBOPLASTIN TIME 27.2 SECONDS (24.8-34.2); PROTHROMBIN TIME 13.1 SECONDS (12.5-14.5)
[2023-08-08] MEDS: HEPARIN SOD (PORCINE) 5000UNITS/ML 1ML VIAL/SYRINGE IV ONE (21:32)
[2023-08-08] MEDS: HEPARIN DRIP 25,000 UNITS in IV 1 EA IV SCH (21:37)
[2023-08-08 21:39] LABS: CK-MB VALUE MASS 171.1 NG/ML (<3.6); MB/CK RELATIVE INDEX 14.28 (< OR =4)
[2023-08-08] MEDS: MORPHINE 2 MG/ML 1ML VIAL IV ONE (21:55)
[2023-08-08 22:30] VITALS: BP 140/79
[2023-08-08 22:46] VITALS: TEMP 99.5; O2SAT 98
== END 2023-08-08 22:47 | disposition short-term general hospital (02) ==
LOC: M ED 19:25
DX: I21.4 Non-ST elevation (NSTEMI) myocardial infarction (principal); I10 Essential (primary) hypertension; I48.91 Unspecified atrial fibrillation; F17.200 Nicotine dependence, unspecified, uncomplicated; Z91.018 Allergy to other foods; Z88.8 Allergy status to other drugs, medicaments and biological substances
CPT/HCPCS: 71045; 80048; 81001; 82550; 82553; 85025; 85610; 85730; 87486; 87581; 87633; 87798; 93005; 93041; 94760; 96365; 96366; 96367; 96375; 99285; J2305

== ENCOUNTER 2025-01-24 16:29 | Observation (INO) | payer OTHER ==
[~2025-01-24] VITALS: Ht 172.7 cm; Wt 76.3 kg
[~2025-01-24 16:29] MED LIST changes: -AUGM0.05 TOP; +AUGM0.0511 TOP
[2025-01-24 17:21] VITALS: TEMP 96.8
[2025-01-24 17:25] LABS: BASO # 0.1 10^3/uL (0.0-0.2); BASO % 0.8 % (0.0-1.0); EOS # 0.5 10^3/uL (0.0-0.5); EOS % 4.0 % (0.0-3.0); LYMPH # 2.1 10^3/uL (1.5-5.0); LYMPH % 18.6 % (24.0-44.0); MONO # 0.8 10^3/uL (0.0-0.8); MONO % 6.9 % (2.0-8.0); NEUTROPHILS # 7.9 10^3/uL (1.5-8.5); NEUTROPHILS % 69.4 % (36.0-66.0); PLATELET COUNT, AUTOMATED 261 10^3/uL (150-450)
[2025-01-24 17:35] LABS: INR 0.97
[2025-01-24 17:45] LABS: CALCIUM LEVEL 9.0 MG/DL (8.3-10.6); CARBON DIOXIDE LEVEL 24 MMOL/L (20-31); CHLORIDE LEVEL 103 MMOL/L (98-107); CK-MB VALUE MASS 1.3 NG/ML (<3.6); CPK CREATINE PHOSPHOKINASE 91 U/L (46-171); CREATININE FOR GFR 1.16 MG/DL (0.70-1.30); GLOMERULAR FILTRATION RATE 70.3 (>49); MAGNESIUM LEVEL 1.9 MG/DL (1.8-2.4); MB/CK RELATIVE INDEX 1.42 (< OR =4); POTASSIUM SERUM 3.8 MMOL/L (3.5-5.1); SODIUM LEVEL 138 MMOL/L (136-145)
[2025-01-24 17:47] LABS: FREE T4 1.50 NG/DL (0.89-1.76)
[2025-01-24] MEDS: MORPHINE 4 MG/ML 1 ML VIAL IV PRN (18:07)
[2025-01-24] MEDS: TETANUS/DIPHTH/ACEL. PERTUSSIS 0.5 ML SYR IM.IMMUN ONE (18:08)
[2025-01-24 18:11] LABS: ETHYL ALCOHOL (ETHANOL) < 0.003 % (0.000-0.010)
[2025-01-24 18:41] LABS: CK-MB VALUE MASS 1.2 NG/ML (<3.6)
[2025-01-24 18:43] LABS: CPK CREATINE PHOSPHOKINASE 104.0 U/L (46-171); MB/CK RELATIVE INDEX 1.15 (< OR =4)
[2025-01-24] MEDS ORDERED: HOME MED LIST COMPLETE! XX SCH (18:50)
[2025-01-24] MEDS ORDERED: MORPHINE 4 MG/ML 1 ML VIAL IV PRN ×2 (19:20)
[2025-01-24] MEDS ORDERED: NICOTINE 14 MG/24 HR TRANSDERMAL TD PRN (19:40)
[2025-01-24] MEDS ORDERED: MOM 30 ML SUSPENSION UDC PO PRN (19:45)
[2025-01-24] MEDS ORDERED: MAALOX 30 ML SUSP *UDC PO PRN (19:45)
[2025-01-24] MEDS: POLYSPORIN TOPICAL OINTMENT 15GM TOP SCH (19:53)
[2025-01-24] MEDS: SILVER SULFADIAZINE 1% CR 50 GM JAR TOP SCH (19:53)
[2025-01-24] MEDS: LR 1,000 ML IV SCH (19:58)
[2025-01-24 20:18] LABS: D-DIMER QUANT 2.66 ug/mL (<0.5)
[2025-01-24 20:23] LABS: ALT/SGPT 25 U/L (7.0-40); AST/SGOT 23 U/L (<34); CHOLESTEROL LEVEL 194 MG/DL (<200); CHOLESTEROL RISK RATIO 4.96 (<5); LDL CHOLESTEROL 112.1 MG/DL (<100); NON-HDL-C 154.9 MG/DL; TRIGLYCERIDES LEVEL 214 MG/DL (<150)
[2025-01-24] MEDS ORDERED: ISOVUE-370 76% 100 ML VIAL As Ordered ONE (20:24)
[2025-01-24 20:50] LABS: ESTIMATED AVERAGE GLUCOSE 105.0 MG/DL (60-110)
[2025-01-24] MEDS: ACETAMINOPHEN 500 MG TAB PO SCH (23:31)
[2025-01-24 23:55] LABS: APPEARANCE, URINE HAZY (CLEAR); BACTERIA, URINE AUTO NEGATIVE (NEGATIVE); BILIRUBIN, URINE AUTO NEGATIVE (NEGATIVE); BLOOD, URINE BLOOD NEGATIVE (NEGATIVE); GLUCOSE, URINE (UA) AUTO NEGATIVE (NEGATIVE); KETONE, URINE AUTO TRACE mg/dL (NEGATIVE); LEUKOCYTE ESTERASE, URINE AUTO NEGATIVE (NEGATIVE); MUCUS, URINE SMALL (NEGATIVE); NITRITE, URINE AUTO NEGATIVE (NEGATIVE); PROTEIN, URINE AUTO 2+ mg/dL (NEGATIVE); RBC, URINE AUTO 1 /HPF (0-3); SPECIFIC GRAVITY URINE AUTO >1.060 (1.002-1.035); SQUAMOUS EPITHELIAL CELL UR AU 0 /HPF (0-6); UROBILINOGEN, URINE AUTO 2.0 mg/dL (0.0-2.0); WBC, URINE AUTO 1 /HPF (0-3)
[2025-01-25 00:06] LABS: AMPHETAMINES LEVEL URINE NEGATIVE (NEGATIVE); BARBITURATES URINE NEGATIVE (NEGATIVE); BENZODIAZEPINES URINE NEGATIVE (NEGATIVE); CANNABINOIDS URINE NEGATIVE (NEGATIVE); COCAINE METABOLITE URINE NEGATIVE (NEGATIVE); METHADONE URINE NEGATIVE (NEGATIVE); PHENCYCLIDINE URINE NEGATIVE (NEGATIVE)
[2025-01-25 00:13] LABS: OPIATES URINE POSITIVE (NEGATIVE)
[2025-01-25 07:30] VITALS: BP 118/58
[2025-01-25 07:45] VITALS: O2SAT 94
[2025-01-25 08:28] LABS: PLATELET COUNT, AUTOMATED 243 10^3/uL (150-450)
[2025-01-25 08:57] LABS: CALCIUM LEVEL 8.4 MG/DL (8.3-10.6); CARBON DIOXIDE LEVEL 27.0 MMOL/L (20-31); CHLORIDE LEVEL 104.0 MMOL/L (98-107); CREATININE FOR GFR 0.95 MG/DL (0.70-1.30); GLOMERULAR FILTRATION RATE 89.4 (>49); POTASSIUM SERUM 4.5 MMOL/L (3.5-5.1); SODIUM LEVEL 137.0 MMOL/L (136-145)
[2025-01-25] MEDS ORDERED: GADOXETATE DISODIUM 2.5 MMOL/10 ML VIAL As Ordered ONE (09:29)
[2025-01-25] MEDS: ASPIRIN 81 MG CHEWABLE TABLET PO SCH (11:17)
[2025-01-25] MEDS: ATORVASTATIN 20 MG TAB PO SCH (11:18)
[2025-01-25] MEDS ORDERED: BACIOIN23 OP (16:00)
[2025-01-25] MEDS ORDERED: SILV1CRE60 TOP (16:01)
== END 2025-01-25 12:55 | disposition left against medical advice (07) ==
LOC: M ED 16:29 → EDBD 16:29 → M ED INP 16:30
PROVIDERS: ADMIT Student in an Organized Health Care Education/Training Program; ATTEND Student in an Organized Health Care Education/Training Program
DX: R55 Syncope and collapse (principal); T21.22XA Burn of second degree of abdominal wall, initial encounter; T23.171A Burn of first degree of right wrist, initial encounter; T23.172A Burn of first degree of left wrist, initial encounter; T31.0 Burns involving less than 10% of body surface; Y92.090 Kitchen in other non-institutional residence as the place of occurrence of the external cause; Y93.G3 Activity, cooking and baking; X12.XXXA Contact with other hot fluids, initial encounter; N17.9 Acute kidney failure, unspecified; D72.829 Elevated white blood cell count, unspecified; R91.8 Other nonspecific abnormal finding of lung field; N18.9 Chronic kidney disease, unspecified; R79.1 Abnormal coagulation profile; F17.200 Nicotine dependence, unspecified, uncomplicated; J98.11 Atelectasis; I25.10 Atherosclerotic heart disease of native coronary artery without angina pectoris; I25.2 Old myocardial infarction; I12.9 Hypertensive chronic kidney disease with stage 1 through stage 4 chronic kidney disease, or unspecified chronic kidney disease; F20.9 Schizophrenia, unspecified; K76.9 Liver disease, unspecified; I48.0 Paroxysmal atrial fibrillation; Z91.141 Patient's other noncompliance with medication regimen due to financial hardship; Z23 Encounter for immunization
CPT/HCPCS: 36415; 70450; 71045; 71275; 74177; 74183; 76857; 80048; 80061; 80076; 80307; 81001; 82077; 82550; 82553; 83036; 83605; 83735; 83880; 84145; 84439; 84443; 84484; 85025; 85027; 85379; 85610; 87486; 87581; 87633; 87798; 90471; 90715; 93005; 93041; 93306; 93970; 94760; 96361; 96374; 99285; A9581; Q9967